=== PATIENT | female | born 1975 | race Caucasian/White ===

== ENCOUNTER 2016-12-08 13:38 | Emergency (ER) | payer BC ==
[2016-12-08] MEDS ORDERED: Ketorolac 60 MG/2 ML SDV IM ONE (16:51)
--- NOTE | 2016-12-08 16:58 | EDM.PDOC ---
ED HPI GENERAL MEDICAL PROBLEM - General Chief Complaint: Upper Extremity Injury/Pain Stated Complaint: PAIN RT ARM/SHOULDER Time Seen by Provider: 12/08/16 16:52 Source of Information: Reports: Patient History Limitations: Reports: No Limitations - History of Present Illness INITIAL COMMENTS - FREE TEXT/NARRATIVE: HISTORY AND PHYSICAL: History of present illness: joanne is a 41-year-old female who presents to the emergency room today with complaints of right shoulder pain. States that this pain came on suddenly approximately 3 months ago while she was living in [place]. States she had no injury or fall to the area. Was seen by a traffic line painter at that time and had received bupivacaine injections into her neck and shoulder with moderate relief.Since moving up to [place] she has been seeing Dr. Dang. He has put her on Dilaudid every 4 hours. states she has tried gabapentin in the past which caused her to "feel drunk" and did not alleviate any of her pain. She discontinued this medication. She has an appointment with the neurologist in [place] on January 01, 2017. patient reports she has a history of yudi and Dr. Estes would not see her due to her complicated case, therfore has a appointment with pain management in [place] on December. Reports that she tried to call and email Dr. Dang to get an expedited an appointment, and was unsuccessful. She states that she utilizes she cannot get any additional narcotics as she is already on Dilaudid. Review of systems: As per history of present illness and below otherwise all systems reviewed and negative. Past medical history: As per history of present illness and as reviewed below otherwise noncontributory. Surgical history: As per history of present illness and as reviewed below otherwise noncontributory. Social history: No reported history of drug or alcohol abuse. Family history: As per history of present illness and as reviewed below otherwise noncontributory. Physical exam: HEENT: Atraumatic, normocephalic, pupils reactive, negative for conjunctival pallor or scleral icterus, mucous membranes moist, throat clear, neck supple, nontender, trachea midline. Lungs: Clear to auscultation, breath sounds equal bilaterally, chest nontender. Heart: S1S2, regular, negative for clicks, rubs, or JVD. Abdomen: Soft, nondistended, nontender. Negative for masses or hepatosplenomegaly. Negative for costovertebral tenderness. Pelvis: Stable nontender. Genitourinary: Deferred. Rectal: Deferred. Extremities: Atraumatic, negative for cords or calf pain. Neurovascular unremarkable. Tender to palpation to the left posterior scapula into the tricep area. skin: Patient does have a port to the right subclavian area. Skin is intact with no sign of infection. Reports that she had this flushed one month ago without any complications. She usually receives monthly treatment for her proferia. Neuro: Awake, alert, oriented. Cranial nerves II through XII unremarkable. Cerebellum unremarkable. Motor and sensory unremarkable throughout. Exam nonfocal. An expedited appointment was made for patient to see Dr. Dang at [facility]. Rohini Stark ensured the ED provider that patient will be seen by a provider in the clinic tomorrow, for further pain management. Patient voices understanding and is agreeable to plan of care. Reports that she had some relief with the IM Toradol and is willing to receive a prescription for Cataflam. Follow-up tomorrow with Diagnostics: One view chest x-ray to ensure port placement Therapeutics: Toradol Impression: Shoulder Pain Plan: 1. Please call [facility] tomorrow morning as we have discussed with rohini Kay that you will be seen tomorrow by a provider, preferably Dr. Dang, to further manage her pain. Continue to take your medications as prescribed. 2. Return to the ED as needed as discussed Definitive disposition and diagnosis as appropriate pending reevaluation and review of above. Duration: Chronic Location: Reports: Upper Extremity, Right Severity: Moderate Worsens with: Reports: Other (Touch) Right Shoulder/Arm Pain Score (Numeric/FACES): 10 - Related Data Allergies Allergy/AdvReac Type Severity Reaction Status Date / Time amoxicillin [Amoxicillin] Allergy unknown Verified 12/08/16 15:03 cephalexin [Cephalexin] Allergy unknown Verified 12/08/16 15:03 cephaloridine [Cephaloridine] Allergy unknown Verified 12/08/16 15:03 Cephalosporins Allergy unknown Verified 12/08/16 15:03 diphenhydramine HCl Allergy unknown Verified 12/08/16 15:03 [From Benadryl] erythromycin base Allergy unknown Verified 12/08/16 15:03 [Erythromycin Base] latex Allergy Hives Verified 12/08/16 15:03 levofloxacin [From Levaquin] Allergy unknown Verified 12/08/16 15:03 Macrolide Antibiotics Allergy unknown Verified 12/08/16 15:03 Penicillins Allergy unknown Verified 12/08/16 15:03 Sulfa (Sulfonamide Allergy unknown Verified 12/08/16 15:03 Antibiotics) Home Meds: Home Meds HYDROmorphone [Dilaudid] 4 mg PO Q4H PRN 07/14/13 [History] Ondansetron [Zofran] 8 mg PO Q8H PRN 07/14/13 [History] Methocarbamol [Robaxin] 500 mg PO Q6H 12/08/16 [History] Sertraline HCl [Zoloft] 100 mg PO DAILY 12/08/16 [History] Past Medical History Musculoskeletal History: Reports: Neck Pain, Chronic Neurological History: Reports: Other (See Below) Other Neuro History: Fibromyalgia and pain syndrome Psychiatric History: Reports: Anxiety Hematologic History: Reports: Blood Transfusion(s), Other (See Below) 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 ED EXAM, GENERAL - Physical Exam Exam: See Below (See dictation) Course - Vital Signs Last Recorded V/S: Last Vital Signs Temp 36.7 C 12/08/16 15:07 Pulse 76 12/08/16 15:07 Resp 18 12/08/16 15:07 BP 107/64 12/08/16 15:07 Pulse Ox 98 12/08/16 15:07 - Orders/Labs/Meds Orders: Active Orders 24 hr Category Date Time Status Chest 1V Frontal [CR] Stat Exams 12/08/16 16:52 Taken Meds: Medications Discontinued Medications Generic Name Dose Route Start Last Admin Trade Name Freq PRN Reason Stop Dose Admin Ketorolac Tromethamine 60 mg 12/08/16 16:51 12/08/16 17:16 Toradol IM 12/08/16 16:52 60 mg ONETIME ONE Administration Departure - Departure Time of Disposition: 18:22 Disposition: Home, Self-Care 01 Clinical Impression: Shoulder pain, right Qualifiers: Chronicity: chronic Qualified Code(s): M25.511 - Pain in right shoulder - Discharge Information Referrals: Diego Dang MD [Primary Care Provider] - Forms: ED Department Discharge Additional Instructions: My general discharge The following information is given to patients seen in the emergency department who are being discharged to home. This information is to outline your options for follow-up care. We provide all patients seen in our emergency department with a follow-up referral. The need for follow-up, as well as the timing and circumstances, are variable depending upon the specifics of your emergency department visit. If you don't have a primary care physician on staff, we will provide you with a referral. We always advise you to contact your personal physician following an emergency department visit to inform them of the circumstance of the visit and for follow-up with them and/or the need for any referrals to a consulting specialist. The emergency department will also refer you to a specialist when appropriate. This referral assures that you have the opportunity for follow-up care with a specialist. All of these measure are taken in an effort to provide you with optimal care, which includes your follow-up. Under all circumstances we always encourage you to contact your private physician who remains a resource for coordinating your care. When calling for follow-up care, please make the office aware that this follow-up is from your recent emergency room visit. If for any reason you are refused follow-up, please contact the [facility] Emergency Department at and asked to speak to the emergency department charge nurse. [address] [address] 1. Please call [facility] tomorrow morning as we have discussed with Rohini Kay that you will be seen tomorrow by a provider, preferably Dr. Dang, to further manage her pain. Continue to take your medications as prescribed. 2. Return to the ED as needed as discussed - My Orders Last 24 Hours: My Active Orders 12/08/16 16:52 Chest 1V Frontal [CR] Stat - Assessment/Plan Last 24 Hours: My Active Orders 12/08/16 16:52 Chest 1V Viviana [CR] Stat
[2016-12-08 19:16] VITALS: BP 102/59
--- NOTE | 2016-12-09 10:39 | CR ---
EXAM DATE: 12/08/16 PATIENT'S AGE: 41 Patient: JESSIE NOLAN Facility: [place], [place] Site . Site : 1975 Study: XRay Chest [id number]/10/2017 5:32:36 PM Ordering Physician: Doctor Perez Final Report: INDICATION: Right shoulder pain TECHNIQUE: Chest 1 view. COMPARISON: 01/18/2014 FINDINGS: Cardiovascular and mediastinum: Heart size and vasculature are normal in caliber and appearance. Right-sided [id number] tip terminates in the proximal SVC. Mediastinum is within normal limits. Lungs and pleural space: Lungs are clear. No sign of infiltrate or mass. No sign of pleural effusion. No pneumothorax. Bones and soft tissues: No significant findings. IMPRESSION: Unremarkable chest. Dictated by Jorden Garrison MD @ 12/08/2016 5:59:33 PM Dictated by: Jorden Garrison MD @ 12/08/2016 17:59:42 (Electronic Signature) Report Signed by Proxy. ROSELINE
== END 2016-12-08 18:59 | disposition home or self-care (01) ==
LOC: MW.ED 13:38
DX: M25.511 Pain in right shoulder (principal); F41.9 Anxiety disorder, unspecified; Z79.899 Other long term (current) drug therapy; Z88.0 Allergy status to penicillin; Z88.1 Allergy status to other antibiotic agents; Z88.2 Allergy status to sulfonamides; Z88.8 Allergy status to other drugs, medicaments and biological substances; Z91.040 Latex allergy status
CPT/HCPCS: 71010; 96372; 99283; J1885

== ENCOUNTER 2017-04-11 15:05 | Emergency (ER) | payer BC ==
[2017-04-11] MEDS ORDERED: Sodium Chloride 0.9% 2.5 ML Syringe FLUSH PRN (17:04)
[2017-04-11] MEDS ORDERED: Sodium Chloride 0.9% 10 ML Syringe FLUSH PRN (17:04)
[2017-04-11] MEDS ORDERED: Ketorolac 30 MG/ML SDV IVPUSH ONE (17:06)
[2017-04-11 17:45] LABS: CHLORIDE,CL 109 mmol/L (98-110); SODIUM,NA 138 mmol/L (136-146)
[2017-04-11] MEDS ORDERED: Iopamidol 755 MG/ML 200 ML Multipack Bottle IVPUSH ONE (18:17)
--- NOTE | 2017-04-11 18:36 | EDM.PDOC ---
ED HPI GENERAL MEDICAL PROBLEM - General Chief Complaint: General Stated Complaint: NECK HURTS Time Seen by Provider: 04/11/17 15:48 Source of Information: Reports: Patient History Limitations: Reports: No Limitations - History of Present Illness INITIAL COMMENTS - FREE TEXT/NARRATIVE: History of present illness: []Patient states she's had 2 days of right jaw and neck pain that is sharp and severe, worsened when she opens her mouth.. She denies any fevers, chills, swelling, vocal changes or difficulty swallowing or breathing. 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 Review of systems: As per history of present illness and below otherwise all systems reviewed and negative. Past medical history: As per history of present illness and as reviewed below otherwise noncontributory. Surgical history: As per history of present illness and as reviewed below otherwise noncontributory. Social history: No reported history of drug or alcohol abuse. Family history: As per history of present illness and as reviewed below otherwise noncontributory. Physical exam: General: Well developed, well nourished in NAD HEENT: Atraumatic, normocephalic, pupils reactive, negative for conjunctival pallor or scleral icterus, mucous membranes moist, throat clear, neck supple, nontender, trachea midline. No jaw swelling noted dental caries or gingival erythema or drainage, no adenopathy or stridor. Lungs: Clear to auscultation, breath sounds equal bilaterally, chest nontender. Heart: S1S2, regular, negative for clicks, rubs, or JVD. Distal pulses are equal bilaterally Abdomen: Soft, nondistended, nontender. Negative for masses or hepatosplenomegaly. Negative for costovertebral tenderness. Pelvis: Stable nontender. Genitourinary: Deferred. Rectal: Deferred. Extremities: Atraumatic, negative for cords or calf pain. Neurovascular unremarkable. Neuro: Awake, alert, oriented. Cranial nerves II through XII unremarkable. Cerebellum unremarkable. Motor and sensory unremarkable throughout. Exam nonfocal. Diagnostics: []CT face and neck shows no abscess or deformities of the mandible. Therapeutics: []Toradol. CT neck and jaw shows Impression: []Right jaw and neck pain Plan: []Motrin or Tylenol for pain, Ice packs and/or heat to area of tenderness all up with primary care Definitive disposition and diagnosis as appropriate pending reevaluation and review of above. Right Lower Face Pain Score (Numeric/FACES): 7 - Related Data Allergies Allergy/AdvReac Type Severity Reaction Status Date / Time amoxicillin [Amoxicillin] Allergy unknown Verified 12/08/16 15:03 cephalexin [Cephalexin] Allergy unknown Verified 12/08/16 15:03 cephaloridine [Cephaloridine] Allergy unknown Verified 12/08/16 15:03 Cephalosporins Allergy unknown Verified 12/08/16 15:03 diphenhydramine HCl Allergy unknown Verified 12/08/16 15:03 [From Benadryl] erythromycin base Allergy unknown Verified 12/08/16 15:03 [Erythromycin Base] latex Allergy Hives Verified 12/08/16 15:03 levofloxacin [From Levaquin] Allergy unknown Verified 12/08/16 15:03 Macrolide Antibiotics Allergy unknown Verified 12/08/16 15:03 Penicillins Allergy unknown Verified 12/08/16 15:03 Sulfa (Sulfonamide Allergy unknown Verified 12/08/16 15:03 Antibiotics) Home Meds: Home Meds HYDROmorphone [Dilaudid] 2 mg PO Q4H PRN 07/14/13 [History] Ondansetron [Zofran] 4 mg PO Q8H PRN 07/14/13 [History] Methocarbamol [Robaxin] 500 mg PO Q6H 12/08/16 [History] Diclofenac Sodium [Voltaren] 50 mg PO ASDIRECTED PRN 04/11/17 [History] LORazepam [Ativan] 0.5 mg PO BID 04/11/17 [History] Past Medical History Musculoskeletal History: Reports: Back Pain, Chronic, Neck Pain, Chronic, Osteoarthritis, Other (See Below) Other Musculoskeletal History: degenerative disk disease Neurological History: Reports: Other (See Below) Other Neuro History: Fibromyalgia and pain syndrome Psychiatric History: Reports: Anxiety Hematologic History: Reports: Blood Transfusion(s), Other (See Below) 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 - Infectious Disease History Infectious Disease History: Reports: Chicken Pox Social & Family History - Family History Family Medical History: Noncontributory - Tobacco Use Smoking Status *Q: Never Smoker Second Hand Smoke Exposure: No - Alcohol Use Days Per Week of Alcohol Use: 0 - Recreational Drug Use Recreational Drug Use: No ED ROS GENERAL - Review of Systems Review Of Systems: See Below (See history of present illness) ED EXAM, GENERAL - Physical Exam Exam: See Below (See history of present illness) Course - Vital Signs Last Recorded V/S: Last Vital Signs Temp 99.4 F 04/11/17 15:58 Pulse 78 04/11/17 15:58 Resp 16 04/11/17 15:58 BP 125/68 04/11/17 15:58 Pulse Ox 96 04/11/17 15:58 - Orders/Labs/Meds Orders: Active Orders 24 hr Category Date Time Status Max Facial Sinus w Cont [CT] Stat Exams 04/11/17 17:03 Taken Soft Tissue Neck w Cont [CT] Stat Exams 04/11/17 17:03 Taken Sodium Chloride 0.9% [Saline Flush] Med 04/11/17 17:04 Active 10 ml FLUSH ASDIRECTED PRN Sodium Chloride 0.9% [Saline Flush] Med 04/11/17 17:04 Active 2.5 ml FLUSH ASDIRECTED PRN Saline Lock Insert [OM.PC] Stat Oth 04/11/17 17:04 Ordered Medication Orders Sodium Chloride (Saline Flush) 10 ml FLUSH ASDIRECTED PRN PRN Reason: Keep Vein Open Last Admin: 04/11/17 17:46 Dose: 10 ml Sodium Chloride (Saline Flush) 2.5 ml FLUSH ASDIRECTED PRN PRN Reason: Keep Vein Open Last Admin: 04/11/17 17:46 Dose: 2.5 ml Labs: Laboratory Tests 04/11/17 04/11/17 Range/Units 17:15 17:15 WBC 6.25 (4.0-11.0) K/uL RBC 4.73 (4.30-5.90) M/uL Hgb 13.7 (12.0-16.0) g/dL Hct 40.0 (36.0-46.0) % MCV 84.6 (80.0-98.0) fL MCH 29.0 (27.0-32.0) pg MCHC 34.3 (31.0-37.0) g/dL RDW Std Deviation 37.8 (28.0-62.0) fl RDW Coeff of Shila 12 (11.0-15.0) % Plt Count 245 (150-400) K/uL MPV 9.00 (7.40-12.00) fL Neut % (Auto) 50.9 (48.0-80.0) % Lymph % (Auto) 40.3 H (16.0-40.0) % [place] % (Auto) 6.4 (0.0-15.0) % Eos % (Auto) 1.9 (0.0-7.0) % Baso % (Auto) 0.5 (0.0-1.5) % Neut # (Auto) 3.2 (1.4-5.7) K/uL Lymph # (Auto) 2.5 H (0.6-2.4) K/uL [place] # (Auto) 0.4 (0.0-0.8) K/uL Eos # (Auto) 0.1 (0.0-0.7) K/uL Baso # (Auto) 0.0 (0.0-0.1) K/uL Nucleated RBC % 0.0 /100WBC Nucleated RBCs # 0 K/uL Sodium 138 (136-146) mmol/L Potassium 4.2 (3.5-5.1) mmol/L Chloride 109 (98-110) mmol/L Carbon Dioxide 22 (21-31) mmol/L BUN 15 (6.0-23.0) mg/dL Creatinine 0.8 (0.6-1.5) mg/dL Est Cr Clr Drug Dosing 77.33 mL/min Estimated GFR (MDRD) > 60.0 ml/min Glucose 81 (60-110) mg/dL Calcium 9.8 (8.8-10.8) mg/dL Meds: Medications Generic Name Dose Route Start Last Admin Trade Name Freq PRN Reason Stop Dose Admin Sodium Chloride 10 ml 04/11/17 17:04 04/11/17 17:46 Saline Flush FLUSH 10 ml ASDIRECTED PRN Administration Keep Vein Open Sodium Chloride 2.5 ml 04/11/17 17:04 04/11/17 17:46 Saline Flush FLUSH 2.5 ml ASDIRECTED PRN Administration Keep Vein Open Discontinued Medications Generic Name Dose Route Start Last Admin Trade Name Freq PRN Reason Stop Dose Admin Iopamidol 200 ml 04/11/17 18:17 04/11/17 18:17 Isovue Multipack-370 (76%) IVPUSH 04/11/17 18:18 75 ml ONETIME ONE Administration Ketorolac Tromethamine 30 mg 04/11/17 17:06 04/11/17 17:46 Toradol IVPUSH 04/11/17 17:07 30 mg ONETIME ONE Administration Departure - Departure Time of Disposition: 18:48 Disposition: Home, Self-Care 01 Condition: Good Clinical Impression: Jaw pain - Discharge Information Referrals: Diego Dang MD [Primary Care Provider] - Forms: ED Department Discharge Additional Instructions: The following information is given to patients seen in the emergency department who are being discharged to home. This information is to outline your options for follow-up care. We provide all patients seen in our emergency department with a follow-up referral. The need for follow-up, as well as the timing and circumstances, are variable depending upon the specifics of your emergency department visit. If you don't have a primary care physician on staff, we will provide you with a referral. We always advise you to contact your personal physician following an emergency department visit to inform them of the circumstance of the visit and for follow-up with them and/or the need for any referrals to a consulting specialist. The emergency department will also refer you to a specialist when appropriate. This referral assures that you have the opportunity for follow-up care with a specialist. All of these measure are taken in an effort to provide you with optimal care, which includes your follow-up. Under all circumstances we always encourage you to contact your private physician who remains a resource for coordinating your care. When calling for follow-up care, please make the office aware that this follow-up is from your recent emergency room visit. If for any reason you are refused follow-up, please contact the [facility] Emergency Department at and asked to speak to the emergency department charge nurse. Tylenol, Motrin, ice packs to jaw PMD. [facility] [address] [place] [id number] - My Orders Last 24 Hours: My Active Orders 04/11/17 17:03 Max Facial Sinus w Cont [CT] Stat Soft Tissue Neck w Cont [CT] Stat 04/11/17 17:04 Sodium Chloride 0.9% [Saline Flush] 10 ml FLUSH ASDIRECTED PRN Sodium Chloride 0.9% [Saline Flush] 2.5 ml FLUSH ASDIRECTED PRN Saline Lock Insert [OM.PC] Stat - Assessment/Plan Last 24 Hours: My Active Orders 04/11/17 17:03 Max Facial Sinus w Cont [CT] Stat Soft Tissue Neck w Cont [CT] Stat 04/11/17 17:04 Sodium Chloride 0.9% [Saline Flush] 10 ml FLUSH ASDIRECTED PRN Sodium Chloride 0.9% [Saline Flush] 2.5 ml FLUSH ASDIRECTED PRN Saline Lock Insert [OM.PC] Stat
[2017-04-11 18:58] VITALS: BP 106/65
--- NOTE | 2017-04-12 15:00 | CT ---
EXAM DATE: 04/11/17 PATIENT'S AGE: 41 Patient: JESSIE NOLAN Facility: [place], [place] Site . Site : 1975 Study: CT Facial [id number]/11/2018 6:23:54 PM Ordering Physician: Jordy Arango Final Report: INDICATION: Right-sided jaw and neck pain for 2 days TECHNIQUE: CT maxillofacial with 70 cc Isovue 370 IV contrast. COMPARISON: None FINDINGS: Facial bones: No fractures or bone lesions. Specifically the nasal bones, temporomandibular joints, maxilla and mandible appear intact. Orbits and globes: Unremarkable. Sinuses: No acute or significant findings. Soft tissues: Unremarkable. No soft tissue abscess or mass. IMPRESSION: No sign of acute abnormality. Please note that all CT scans at this facility use dose modulation, iterative reconstruction, and/or weight-based dosing when appropriate to reduce radiation dose to as low as reasonably achievable. Dictated by Ksenia King MD @ Apr 11 2017 6:30PM (Electronic Signature) Report Signed by Proxy. [facility] HOSPITALAzael
--- NOTE | 2017-04-12 15:01 | CT ---
EXAM DATE: 04/11/17 PATIENT'S AGE: 41 Patient: JESSIE NOLAN Facility: [place], [place] Site . Site : 1975 Study: CT ST Neck [id number]/11/2018 6:24:34 PM Ordering Physician: Jordy Arango Final Report: INDICATION: Right-sided jaw, neck pain. TECHNIQUE: Standard contrast-enhanced CT neck soft tissue protocol performed. FINDINGS: The soft tissues of the neck are within normal limits. The airway is widely patent. The muscles and fascial planes are intact. No lymphadenopathy is noted. The carotid and vertebral arteries have a normal course and caliber. The visualized orbits, sinuses and mastoids are unremarkable. The visualized brain is within normal limits. The cervical spine is in normal alignment. The lung apices are clear. IMPRESSION: Normal neck CT with contrast. Please note that all CT scans at this facility use dose modulation, iterative reconstruction, and/or weight-based dosing when appropriate to reduce radiation dose to as low as reasonably achievable. Dictated by Doc Lakhani MD @ Apr 12 2017 12:40AM (Electronic Signature) Report Signed by Proxy. [facility] SYSTEMAzael
== END 2017-04-11 18:54 | disposition home or self-care (01) ==
LOC: MW.ED 15:05
DX: R68.84 Jaw pain (principal); M54.2 Cervicalgia; F41.9 Anxiety disorder, unspecified; Z88.1 Allergy status to other antibiotic agents; Z88.0 Allergy status to penicillin; Z88.2 Allergy status to sulfonamides; Z88.8 Allergy status to other drugs, medicaments and biological substances; Z79.899 Other long term (current) drug therapy
CPT/HCPCS: 36415; 70487; 70491; 80048; 85025; 96374; 99284; J1885; Q9967

== ENCOUNTER 2017-06-03 02:20 | Observation (INO) | payer BC, MEDICARE ==
[2017-06-03] MEDS ORDERED: Sodium Chloride 0.9% 10 ML Syringe FLUSH PRN (02:57)
[2017-06-03] MEDS ORDERED: Sodium Chloride 0.9% 2.5 ML Syringe FLUSH PRN (02:57)
[2017-06-03] MEDS ORDERED: Ondansetron 4 MG/2 ML SDV IVPUSH ONE (02:58)
[2017-06-03] MEDS ORDERED: Sodium Chloride 0.9% 1,000 ML IV ONE (02:58)
[2017-06-03] MEDS ORDERED: HYDROmorphone 2 MG/ML SDV IVPUSH ONE (02:58)
--- NOTE | 2017-06-03 03:10 | EDM.PDOC ---
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 Mireles in our oncology clinic. According to the patient the last year she has been doing much better and has not had frequent attacks that she needs to come to the ER and she is able to intercept at home with hydration, carbohydrate loading Zofran and oral Dilaudid. The patient did have a flare up just recently and was seen in our oncology clinic on May 20 and received IV hemin 350 milligrams and she says that after this she felt good for at least 3-4 days. She has received IV hemin multiple times when she was living in [place] and the patient has documentation in a large open book at bedside. Her dose at that time was 313 mg. The patient says her need for hospitalization and ER visits has significantly reduced over the last one year and she is not sure why to flare up so soon after the last IV infusion. The patient is currently on her period which will sometimes exacerbate her flareups in her typical flareups is what she is experiencing now which is upper right neck and back pain posterior arm pain extending down to the flank area which is a burning-like sensation. She has constant nausea but he gets worse during her flareups she has not had any vomiting or diarrhea. She denies and has a history of tubal ligation and has no urinary complaints. She's not had a fever or upper respiratory symptoms. She says that she tried to contact the oncology clinic today at 3:30 but nobody returned her call and she also tried to contact Dr. Dang her provider at [facility] and they also did not return her phone call. She's coming here because the pain is unrelenting and she feels that she has an acute flare up requiring more intervention than she can do at home. The patient states that the pain she is experiencing is a deep burning-like sensation and it is classic for her flareups. The patient states that as a result of her multiple flareups in the past she has had lots of nerve damage and also has significant lumbar and cervical spine disease including disc bulging for which she does not feel that the pain is new or different this evening ;she has no new focal neurologic deficits weakness or tingling. Please note that the patient comes with a very large notebook of paperwork including almost every doctor's note from her old outdoor advertising leasing agent, ER visits, care plans and medication list. She also has with her the paperwork documenting her dosing of the hemin done in our oncology clinic on May 20. Patient tells me that when she felt this flareup worsening this evening she tried to carbohydrate load eating pizza as well as taking her home medication Review of systems: As per history of present illness and below otherwise all systems reviewed and negative. Past medical history: As per history of present illness and as reviewed below otherwise noncontributory. Surgical history: As per history of present illness and as reviewed below otherwise noncontributory. Social history: No reported history of drug or alcohol abuse. Family history: As per history of present illness and as reviewed below otherwise noncontributory. Physical exam: General: Well-developed well-nourished female who is nontoxic but looks uncomfortable in the room and vital signs are noted by me HEENT: Atraumatic, normocephalic, pupils reactive, negative for conjunctival pallor or scleral icterus, mucous membranes moist, throat clear, neck supple, nontender, trachea midline. Lungs: Clear to auscultation, breath sounds equal bilaterally, chest nontender. Heart: S1S2, regular, negative for clicks, rubs, or JVD. Abdomen: Soft, nondistended, nontender. Negative for masses or hepatosplenomegaly. Negative for costovertebral tenderness. Pelvis: Stable nontender. Genitourinary: Deferred. Rectal: Deferred. Extremities: Atraumatic, negative for cords or calf pain. Neurovascular unremarkable. Range of motion without defects or deficits Neuro: Awake, alert, oriented. Cranial nerves II through XII unremarkable. Cerebellum unremarkable. Motor and sensory unremarkable throughout. Exam nonfocal. Skin: Normal turgor no evidence of any rashes or lesions are appreciated Diagnostics: CBC CMP magnesium level I contacted the lab to see if they could do a urine porphobilinogen, which is the diagnostic test for a flare up of porphyria, but they tell me it is a send out. Therapeutics: Port access, IV fluids, Zofran, Dilaudid, hemin. I have discussed with the patient having Dr. Mireles compile a protocol for her to be left in the ED book of patients that we keep for those individuals that have rare disorders that require specific treatment. I told her that it would be helpful for all of our providers to have the ability to reference this information and to institute a care plan that both he approves of as well as works for this patient. She said that she has asked him to do that on her last visit and she will again approach him when she sees him again for a follow-up. I will also refer her to our clinics to get a primary care for rider who may also be able to assist with this. [id number]: Case was discussed with hematology on-call at [facility] for Dr. Mireles, Dr. Brown, and he tells me that there is no reason why I cannot give the IV hemin and recommends that I do and that I need to change her fluids to a dextrose containing solution after her bolus and she will need to be admitted for observation for continued hydration with a dextrose solution into her pain is resolved. [id number]: According to our pharmacist we cannot get the hemin as we have to pre- order this and we do not keep it in stock. In order for this patient to receive the drug we will have to order it sometime later this morning and it will not arrive here until Wednesday. I discussed this information with Dr. Brown and have specifically asked him if he thinks that the patient needs emergent transfer to get this medication this evening and he says no and that the patient can be observed here with a trial of hydration pain management and reevaluation. He said that sometimes that they will improve with just this alone and that if she needs the medication she would then need to be transferred. Every discussed this case with Dr. Dominguez who was aware of this patient when she arrived. He is agreeable to observation admission with IV hydration and symptomatic management and reevaluation for either receiving the medication later today and/or transfer. Patient has been made aware of all of these conversations. The patient also tells me that she has done this in the past as well. Both Dr. Dominguez and the patient will discuss possibly ordering this medication and giving it on an outpatient basis on Wednesday if we can get her pain control and hydration status improved during this observation. Critical care time excluding procedures:31min Impression: Acute intermittent porphyria with current flareup Definitive disposition and diagnosis as appropriate pending reevaluation and review of above. Right Pain Score (Numeric/FACES): 7 - Related Data Allergies Allergy/AdvReac Type Severity Reaction Status Date / Time amoxicillin [Amoxicillin] Allergy unknown Verified 12/08/16 15:03 cephalexin [Cephalexin] Allergy unknown Verified 12/08/16 15:03 cephaloridine [Cephaloridine] Allergy unknown Verified 12/08/16 15:03 Cephalosporins Allergy unknown Verified 12/08/16 15:03 diphenhydramine HCl Allergy unknown Verified 12/08/16 15:03 [From Benadryl] erythromycin base Allergy unknown Verified 12/08/16 15:03 [Erythromycin Base] latex Allergy Hives Verified 12/08/16 15:03 levofloxacin [From Levaquin] Allergy unknown Verified 12/08/16 15:03 Macrolide Antibiotics Allergy unknown Verified 12/08/16 15:03 Penicillins Allergy unknown Verified 12/08/16 15:03 Sulfa (Sulfonamide Allergy unknown Verified 12/08/16 15:03 Antibiotics) Home Meds: Home Meds HYDROmorphone [Dilaudid] 2 mg PO Q4H PRN 07/14/13 [History] Ondansetron [Zofran] 4 mg PO Q8H PRN 07/14/13 [History] Methocarbamol [Robaxin] 500 mg PO Q6H 12/08/16 [History] Diclofenac Sodium [Voltaren] 50 mg PO ASDIRECTED PRN 04/11/17 [History] LORazepam [Ativan] 0.5 mg PO BID 04/11/17 [History] Past Medical History Cardiovascular History: Reports: Other (See Below) Other Cardiovascular History: POTS Musculoskeletal History: Reports: Back Pain, Chronic, Neck Pain, Chronic, Osteoarthritis, Other (See Below) Other Musculoskeletal History: degenerative disk disease Neurological History: Reports: Other (See Below) Other Neuro History: Fibromyalgia and pain syndrome Psychiatric History: Reports: Anxiety Hematologic History: Reports: Blood Transfusion(s), Other (See Below) 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 ED EXAM, GENERAL - Physical Exam Exam: See Below (See dictation) Course - Vital Signs Last Recorded V/S: Last Vital Signs Temp 36.9 C 06/03/17 02:36 Pulse 96 06/03/17 02:36 Resp 18 06/03/17 02:36 BP 140/77 06/03/17 02:36 Pulse Ox 97 06/03/17 02:36 - Orders/Labs/Meds Orders: Active Orders 24 hr Category Date Time Status Patient Status [ADT] Stat ADT 06/03/17 03:53 Active Implanted Port Access [RC] DAILY Care 06/03/17 02:58 Active Dextrose 5%-0.45% NaCl [Dextrose 5%-1/2 NS] 1,000 ml Med 06/03/17 03:45 Active IV ASDIRECTED Medication Orders Dextrose/Sodium Chloride (Dextrose 5%-1/2 Ns) 1,000 mls @ 125 mls/hr IV ASDIRECTED ISMAEL Labs: Laboratory Tests 06/03/17 06/03/17 06/03/17 Range/Units 03:30 03:30 03:30 WBC 6.79 (4.0-11.0) K/uL RBC 4.36 (4.30-5.90) M/uL Hgb 12.6 (12.0-16.0) g/dL Hct 36.3 (36.0-46.0) % MCV 83.3 (80.0-98.0) fL MCH 28.9 (27.0-32.0) pg MCHC 34.7 (31.0-37.0) g/dL RDW Std Deviation 36.6 (28.0-62.0) fl RDW Coeff of Shila 12 (11.0-15.0) % Plt Count 229 (150-400) K/uL MPV 8.90 (7.40-12.00) fL Neut % (Auto) 45.5 L (48.0-80.0) % Lymph % (Auto) 42.6 H (16.0-40.0) % Hudson % (Auto) 8.4 (0.0-15.0) % Eos % (Auto) 3.1 (0.0-7.0) % Baso % (Auto) 0.4 (0.0-1.5) % Neut # (Auto) 3.1 (1.4-5.7) K/uL Lymph # (Auto) 2.9 H (0.6-2.4) K/uL Hudson # (Auto) 0.6 (0.0-0.8) K/uL Eos # (Auto) 0.2 (0.0-0.7) K/uL Baso # (Auto) 0.0 (0.0-0.1) K/uL Nucleated RBC % 0.0 /100WBC Nucleated RBCs # 0 K/uL INR 0.98 Sodium 142 (136-145) mmol/L Potassium 3.5 (3.5-5.1) mmol/L Chloride 107 (98-107) mmol/L Carbon Dioxide 26.9 (21.0-32.0) mmol/L BUN 20 H (7.0-18.0) mg/dL Creatinine 0.9 (0.6-1.0) mg/dL Est Cr Clr Drug Dosing 68.73 mL/min Estimated GFR (MDRD) > 60.0 ml/min Glucose 86 (74-106) mg/dL Calcium 9.4 (8.5-10.1) mg/dL Magnesium 1.9 (1.5-2.0) mg/dL Total Bilirubin 0.2 (0.2-1.0) mg/dL AST 24 (15-37) IU/L ALT 27 (14-63) IU/L Alkaline Phosphatase 43 L (46-116) U/L Total Protein 6.3 L (6.4-8.2) g/dL Albumin 3.4 (3.4-5.0) g/dL Globulin 2.9 (2.0-3.5) g/dL Albumin/Globulin Ratio 1.2 L (1.3-2.8) Meds: Medications Generic Name Dose Route Start Last Admin Trade Name Freq PRN Reason Stop Dose Admin Dextrose/Sodium Chloride 1,000 mls @ 125 mls/hr 06/03/17 03:45 Dextrose 5%-1/2 Ns IV ASDIRECTED ISMAEL Discontinued Medications Generic Name Dose Route Start Last Admin Trade Name Wilbertoq PRN Reason Stop Dose Admin Hemin 313 mg 06/03/17 03:31 Panhematin IV 06/03/17 03:32 ONETIME ONE Hydromorphone HCl 1 mg 06/03/17 02:58 06/03/17 03:24 Dilaudid IVPUSH 06/03/17 02:59 1 mg ONETIME ONE Administration Sodium Chloride 1,000 mls @ 999 mls/hr 06/03/17 02:58 06/03/17 03:25 Normal Saline IV 06/03/17 03:58 999 mls/hr STAT ONE Administration Ondansetron HCl 4 mg 06/03/17 02:58 06/03/17 03:24 Zofran IVPUSH 06/03/17 02:59 4 mg ONETIME ONE Administration Sodium Chloride 10 ml 06/03/17 02:57 Saline Flush FLUSH ASDIRECTED PRN Keep Vein Open Sodium Chloride 2.5 ml 06/03/17 02:57 Saline Flush FLUSH ASDIRECTED PRN Keep Vein Open Departure - Departure Time of Disposition: 04:20 Disposition: Refer to Observation Condition: Good Clinical Impression: Acute intermittent porphyria - Discharge Information Referrals: Diego Dang MD [Primary Care Provider] - Forms: ED Department Discharge - My Orders Last 24 Hours: My Active Orders 06/03/17 02:58 Implanted Port Access [RC] DAILY 06/03/17 03:45 Dextrose 5%-0.45% NaCl [Dextrose 5%-1/2 NS] 1,000 ml IV ASDIRECTED 06/03/17 03:53 Patient Status [ADT] Stat - Assessment/Plan Last 24 Hours: My Active Orders 06/03/17 02:58 Implanted Port Access [RC] DAILY 06/03/17 03:45 Dextrose 5%-0.45% NaCl [Dextrose 5%-1/2 NS] 1,000 ml IV ASDIRECTED 06/03/17 03:53 Patient Status [ADT] Stat
[2017-06-03] MEDS ORDERED: HEMIN IV ONE (03:31)
[2017-06-03 04:05] LABS: CHLORIDE,CL 107 mmol/L (98-107); SODIUM,NA 142 mmol/L (136-145)
[2017-06-03] MEDS: Dextrose 5%-0.45% NaCl 1,000 ML IV SCH ×3 (04:30→20:50)
[2017-06-03] MEDS ORDERED: HYDROmorphone 2 MG/ML Syringe IVPUSH PRN (04:54)
[2017-06-03] MEDS: Ondansetron 4 MG/2 ML SDV IVPUSH PRN ×2 (06:29→10:53)
--- NOTE | 2017-06-03 07:32 | PCM.HP ---
H&P History of Present Illness - General Date of Service: 06/03/17 Admit Problem/Dx: Admission Diagnosis/Problem Admission Diagnosis/Problem Acute pain - History of Present Illness Initial Comments - Free Text/Narative: This is a 41-year-old female who has a significant medical history for acute intermittent prophyria for which she is being seen by hematology, Dr. Mireles since she moved to [place]. Patient states that she is having an acute flareup , she is having a burning sensation of her upper extremity on the right side into the back and extending all the way down to her lower extremities. It is typical in terms of how her acute flareups do occur however this is becoming significant whether she is unable to control the pain management at home. Typically she will alternate in terms of carbohydrate intake as that can control it the symptoms. However at this point in time she requires her infusion of IV Hemin. She called her primary care provider and was not able to get in touch with his office, she called the infusion center to see if she could get in touch with Dr. Mireles and again she was unable to get any response back as the pain became progressively worse the patient came into the ER for pain control management. ER treatment included IV fluids, Zofran, Dilaudid for pain management, ER learned that hemin is not on formulary and requires to be shipped. Decision was made to admit the patient for pain management and if the patient's pain was not controllable to have the patient urgently transferred off get her IV infusion immediately. Right Pain Score (Numeric/FACES): 7 - Related Data Allergies/Adverse Reactions: Allergies Allergy/AdvReac Type Severity Reaction Status Date / Time amoxicillin [Amoxicillin] Allergy unknown Verified 12/08/16 15:03 cephalexin [Cephalexin] Allergy unknown Verified 12/08/16 15:03 cephaloridine [Cephaloridine] Allergy unknown Verified 12/08/16 15:03 Cephalosporins Allergy unknown Verified 12/08/16 15:03 diphenhydramine HCl Allergy unknown Verified 12/08/16 15:03 [From Benadryl] erythromycin base Allergy unknown Verified 12/08/16 15:03 [Erythromycin Base] latex Allergy Hives Verified 12/08/16 15:03 levofloxacin [From Levaquin] Allergy unknown Verified 12/08/16 15:03 Macrolide Antibiotics Allergy unknown Verified 12/08/16 15:03 Penicillins Allergy unknown Verified 12/08/16 15:03 Sulfa (Sulfonamide Allergy unknown Verified 12/08/16 15:03 Antibiotics) Home Medications: Home Meds HYDROmorphone [Dilaudid] 2 mg PO Q4H PRN 07/14/13 [History] Ondansetron [Zofran] 4 mg PO Q8H PRN 07/14/13 [History] Methocarbamol [Robaxin] 500 mg PO Q6H 12/08/16 [History] Diclofenac Sodium [Voltaren] 50 mg PO ASDIRECTED PRN 04/11/17 [History] LORazepam [Ativan] 0.5 mg PO BID 04/11/17 [History] Past Medical History HEENT History: Reports: None Cardiovascular History: Reports: Other (See Below) Other Cardiovascular History: POTS 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: Reports: , Other (See Below) Other OB/BYN History: tubal ligation Musculoskeletal History: Reports: Back Pain, Chronic, Neck Pain, Chronic, Osteoarthritis, Other (See Below) Other Musculoskeletal History: degenerative disk disease Neurological History: Reports: Other (See Below) Other Neuro History: Fibromyalgia and pain syndrome Psychiatric History: Reports: Anxiety Endocrine/Metabolic History: Reports: Other (See Below) Other Endocrine/Metabolic History: acute intermitent porphria Hematologic History: Reports: Other (See Below) Other Hematologic History: acute intermitent porphyria - Infectious Disease History Infectious Disease History: Reports: Chicken Pox - Past Surgical History HEENT Surgical History: Reports: None Cardiovascular Surgical History: Reports: None Endocrine Surgical History: Reports: None Neurological Surgical History: Reports: None Musculoskeletal Surgical History: Reports: None Social & Family History - Family History Family Medical History: Noncontributory - Tobacco Use Smoking Status *Q: Never Smoker Second Hand Smoke Exposure: No - Caffeine Use Caffeine Use: Reports: None - Alcohol Use Days Per Week of Alcohol Use: 0 - Recreational Drug Use Recreational Drug Use: No H&P Review of Systems - Review of Systems: Review Of Systems: ROS reveals no pertinent complaints other than HPI. Exam - Exam Exam: See Below - Vital Signs Vital Signs: Last Vital Signs Temp 37.1 C 06/03/17 04:28 Pulse 82 06/03/17 04:38 Resp 12 06/03/17 04:38 BP 93/50 L 06/03/17 04:38 Pulse Ox 97 06/03/17 04:38 Weight: 66.905 kg - Exam Quality Assessment: Supplemental Oxygen General: Alert, Oriented, Cooperative, Moderate Distress Lungs: Clear to Auscultation, Normal Respiratory Effort Cardiovascular: Regular Rate, Regular Rhythm GI/Abdominal Exam: Normal Bowel Sounds Extremities: Normal Inspection, Normal Range of Motion, Non-Tender - Patient Data Lab Results Last 24 hrs: Laboratory Results - last 24 hr 06/03/17 06/03/17 06/03/17 Range/Units 03:30 03:30 03:30 WBC 6.79 (4.0-11.0) K/uL RBC 4.36 (4.30-5.90) M/uL Hgb 12.6 (12.0-16.0) g/dL Hct 36.3 (36.0-46.0) % MCV 83.3 (80.0-98.0) fL MCH 28.9 (27.0-32.0) pg MCHC 34.7 (31.0-37.0) g/dL RDW Std Deviation 36.6 (28.0-62.0) fl RDW Coeff of Shila 12 (11.0-15.0) % Plt Count 229 (150-400) K/uL MPV 8.90 (7.40-12.00) fL Neut % (Auto) 45.5 L (48.0-80.0) % Lymph % (Auto) 42.6 H (16.0-40.0) % Lucas % (Auto) 8.4 (0.0-15.0) % Eos % (Auto) 3.1 (0.0-7.0) % Baso % (Auto) 0.4 (0.0-1.5) % Neut # (Auto) 3.1 (1.4-5.7) K/uL Lymph # (Auto) 2.9 H (0.6-2.4) K/uL Lucas # (Auto) 0.6 (0.0-0.8) K/uL Eos # (Auto) 0.2 (0.0-0.7) K/uL Baso # (Auto) 0.0 (0.0-0.1) K/uL Nucleated RBC % 0.0 /100WBC Nucleated RBCs # 0 K/uL INR 0.98 Sodium 142 (136-145) mmol/L Potassium 3.5 (3.5-5.1) mmol/L Chloride 107 (98-107) mmol/L Carbon Dioxide 26.9 (21.0-32.0) mmol/L BUN 20 H (7.0-18.0) mg/dL Creatinine 0.9 (0.6-1.0) mg/dL Est Cr Clr Drug Dosing 68.73 mL/min Estimated GFR (MDRD) > 60.0 ml/min Glucose 86 (74-106) mg/dL Calcium 9.4 (8.5-10.1) mg/dL Magnesium 1.9 (1.5-2.0) mg/dL Total Bilirubin 0.2 (0.2-1.0) mg/dL AST 24 (15-37) IU/L ALT 27 (14-63) IU/L Alkaline Phosphatase 43 L (46-116) U/L Total Protein 6.3 L (6.4-8.2) g/dL Albumin 3.4 (3.4-5.0) g/dL Globulin 2.9 (2.0-3.5) g/dL Albumin/Globulin Ratio 1.2 L (1.3-2.8) Result Diagrams: 06/03/17 03:30 06/03/17 03:30 Problem List Initiated/Reviewed/Updated: Yes Orders Last 24hrs: Active Orders 24 hr Category Date Time Status Patient Status [ADT] Stat ADT 06/03/17 03:53 Active Implanted Port Access [RC] DAILY Care 06/03/17 02:58 Active Regular Diet [DIET] Diet 06/03/17 Breakfast Active Dextrose 5%-0.45% NaCl [Dextrose 5%-1/2 NS] 1,000 ml Med 06/03/17 03:45 Active IV ASDIRECTED HYDROmorphone [Dilaudid] Med 06/03/17 04:54 Active 1 mg IVPUSH Q3H PRN Ondansetron [Zofran] Med 06/03/17 04:54 Active 4 mg IVPUSH Q3H PRN Medication Orders Hydromorphone HCl (Dilaudid) 1 mg IVPUSH Q3H PRN PRN Reason: Pain Last Admin: 06/03/17 05:33 Dose: 1 mg Dextrose/Sodium Chloride (Dextrose 5%-1/2 Ns) 1,000 mls @ 125 mls/hr IV ASDIRECTED ISMAEL Last Admin: 06/03/17 04:30 Dose: 125 mls/hr Ondansetron HCl (Zofran) 4 mg IVPUSH Q3H PRN PRN Reason: Nausea/Vomiting Last Admin: 06/03/17 06:29 Dose: 4 mg Assessment/Plan Comment:: 41-year-old female being admitted for acute flareup of her acute intermittent porphyria. Patient requires IV pain management and nausea/vomiting controlled. -Patient to control patient's pain with IV Dilaudid, Zofran and Phenergan for nausea and vomiting control, IV fluids for appropriate hydration - Have spoken with Pharmacy patient shall be getting her Hemin dosage shipped to [place], Shall be getting in touch with Hematology in regards to the amount of infuses this patient is going to require for this acute flare up. - admit patient under observation disposition less then 2 midnights.
[2017-06-03] MEDS: HYDROmorphone 1 MG/ML Syringe IVPUSH PRN ×4 (08:27→20:48)
[2017-06-03] MEDS ORDERED: Promethazine 25 MG/ML SDV IM PRN (11:26)
[2017-06-03] MEDS: Enoxaparin 40 MG/0.4 ML Syringe SUBCUT SCH (14:12)
[2017-06-03] MEDS ORDERED: LORazepam 0.5 MG Tab PO PRN (21:31)
[2017-06-04] MEDS: Dextrose 5%-0.45% NaCl 1,000 ML IV SCH ×3 (04:15→23:54)
[2017-06-04] MEDS: HYDROmorphone 1 MG/ML Syringe IVPUSH PRN ×5 (04:22→23:56)
[2017-06-04 05:42] LABS: CHLORIDE,CL 108 mmol/L (98-107); SODIUM,NA 140 mmol/L (136-145)
[2017-06-04] MEDS: Ondansetron 4 MG/2 ML SDV IVPUSH PRN ×2 (11:00→14:43)
[2017-06-04] MEDS ORDERED: HEMIN IV ONE (12:47)
[2017-06-04] MEDS: Enoxaparin 40 MG/0.4 ML Syringe SUBCUT SCH (12:54)
[2017-06-04] MEDS ORDERED: HEMIN IV SCH (13:15)
--- NOTE | 2017-06-04 14:21 | PCM.PN ---
- General Info Date of Service: 06/04/17 Subjective Update: Pt stated she did not sleep well over night, still having some pain in back and arm area. Awaiting the patients Hemin so that we can start dosing. - Patient Data Vitals - Most Recent: Last Vital Signs Temp 36.9 C 06/04/17 08:00 Pulse 85 06/04/17 08:00 Resp 12 06/04/17 08:00 BP 108/60 06/04/17 08:00 Pulse Ox 97 06/04/17 08:00 Weight - Most Recent: 66.905 kg I&O - Last 24 Hours: Intake & Output 06/03/17 06/04/17 06/04/17 22:59 06:59 14:59 Intake Total 1000 1225 Output Total 1400 Balance 1000 -175 Lab Results Last 24 Hours: Laboratory Results - last 24 hr 06/04/17 06/04/17 06/04/17 Range/Units 02:17 05:05 05:05 WBC 5.04 (4.0-11.0) K/uL RBC 4.25 L (4.30-5.90) M/uL Hgb 12.1 (12.0-16.0) g/dL Hct 35.6 L (36.0-46.0) % MCV 83.8 (80.0-98.0) fL MCH 28.5 (27.0-32.0) pg MCHC 34.0 (31.0-37.0) g/dL RDW Std Deviation 37.2 (28.0-62.0) fl RDW Coeff of Shila 12 (11.0-15.0) % Plt Count 213 (150-400) K/uL MPV 9.10 (7.40-12.00) fL Neut % (Auto) 44.0 L (48.0-80.0) % Lymph % (Auto) 42.1 H (16.0-40.0) % [place] % (Auto) 8.3 (0.0-15.0) % Eos % (Auto) 5.0 (0.0-7.0) % Baso % (Auto) 0.6 (0.0-1.5) % Neut # (Auto) 2.2 (1.4-5.7) K/uL Lymph # (Auto) 2.1 (0.6-2.4) K/uL [place] # (Auto) 0.4 (0.0-0.8) K/uL Eos # (Auto) 0.3 (0.0-0.7) K/uL Baso # (Auto) 0.0 (0.0-0.1) K/uL Nucleated RBC % 0.0 /100WBC Nucleated RBCs # 0 K/uL Sodium 140 (136-145) mmol/L Potassium 3.6 (3.5-5.1) mmol/L Chloride 108 H (98-107) mmol/L Carbon Dioxide 25.4 (21.0-32.0) mmol/L BUN 9 (7.0-18.0) mg/dL Creatinine 0.9 (0.6-1.0) mg/dL Est Cr Clr Drug Dosing 68.73 mL/min Estimated GFR (MDRD) > 60.0 ml/min Glucose 101 (74-106) mg/dL Calcium 8.8 (8.5-10.1) mg/dL Total Bilirubin 0.2 (0.2-1.0) mg/dL AST 24 (15-37) IU/L ALT 24 (14-63) IU/L Alkaline Phosphatase 38 L (46-116) U/L Total Protein 5.6 L (6.4-8.2) g/dL Albumin 3.1 L (3.4-5.0) g/dL Globulin 2.5 (2.0-3.5) g/dL Albumin/Globulin Ratio 1.2 L (1.3-2.8) Urine Color YELLOW Urine Appearance CLEAR Urine pH 7.0 (5.0-8.0) Ur Specific [place] 1.010 (1.001-1.035) Urine Protein NEGATIVE (NEGATIVE) mg/dL Urine Glucose (UA) NEGATIVE (NEGATIVE) mg/dL Urine Ketones NEGATIVE (NEGATIVE) mg/dL Urine Occult Blood NEGATIVE (NEGATIVE) Urine Nitrite NEGATIVE (NEGATIVE) Urine Bilirubin NEGATIVE (NEGATIVE) Urine Urobilinogen 0.2 (<2.0) EU/dL Ur Leukocyte Esterase NEGATIVE (NEGATIVE) Urine RBC NONE SEEN (0-2/HPF) Urine WBC NONE SEEN (0-5/HPF) Ur Epithelial Cells OCCASIONAL (NONE-FEW) Urine Bacteria FEW (NEGATIVE) Med Orders - Current: Current Medications Enoxaparin Sodium (Lovenox) 40 mg SUBCUT Q24H [facility] Last Admin: 06/04/17 12:54 Dose: 40 mg Hydromorphone HCl (Dilaudid) 1 mg IVPUSH Q3H PRN PRN Reason: Pain Last Admin: 06/04/17 12:58 Dose: 1 mg Dextrose/Sodium Chloride (Dextrose 5%-1/2 Ns) 1,000 mls @ 125 mls/hr IV ASDIRECTED [facility] Last Admin: 06/04/17 12:30 Dose: 125 mls/hr Hemin 350 mg/ Premix 50 mls @ 100 mls/hr IV Q24H [facility] Stop: 06/05/17 13:44 Lorazepam (Ativan) 0.5 mg PO BEDTIME PRN PRN Reason: Anxiety Last Admin: 06/03/17 23:08 Dose: 0.5 mg Ondansetron HCl (Zofran) 4 mg IVPUSH Q3H PRN PRN Reason: Nausea/Vomiting Last Admin: 06/04/17 11:00 Dose: 4 mg Promethazine HCl (Phenergan) 25 mg IM Q6H PRN PRN Reason: Nausea/Vomiting Senna/Docusate Sodium (Senna Plus) 1 tab PO BID PRN PRN Reason: Constipation Discontinued Medications Hemin (Panhematin) 313 mg IV ONETIME ONE Stop: 06/03/17 03:32 Last Admin: 06/03/17 04:26 Dose: Not Given Hydromorphone HCl (Dilaudid) 1 mg IVPUSH ONETIME ONE Stop: 06/03/17 02:59 Last Admin: 06/03/17 03:24 Dose: 1 mg Hydromorphone HCl (Dilaudid) 1 mg IVPUSH Q3H PRN PRN Reason: Pain Last Admin: 06/03/17 05:33 Dose: 1 mg Sodium Chloride (Normal Saline) 1,000 mls @ 999 mls/hr IV STAT ONE Stop: 06/03/17 03:58 Last Admin: 06/03/17 03:25 Dose: 999 mls/hr Ondansetron HCl (Zofran) 4 mg IVPUSH ONETIME ONE Stop: 06/03/17 02:59 Last Admin: 06/03/17 03:24 Dose: 4 mg Sodium Chloride (Saline Flush) 10 ml FLUSH ASDIRECTED PRN PRN Reason: Keep Vein Open Sodium Chloride (Saline Flush) 2.5 ml FLUSH ASDIRECTED PRN PRN Reason: Keep Vein Open - Exam Quality Assessment: Supplemental Oxygen General: Alert, Oriented, Cooperative, Mild Distress Lungs: Clear to Auscultation, Normal Respiratory Effort Cardiovascular: Regular Rate, Regular Rhythm GI/Abdominal Exam: Normal Bowel Sounds Extremities: Normal Inspection, Normal Range of Motion, Other (tenderness of right arm area and back. 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 Patient requires IV pain management and nausea/vomiting controlled. -Patient to control patient's pain with IV Dilaudid, Zofran and Phenergan for nausea and vomiting control, IV fluids for appropriate hydration - Patient's Hemin for her AIP is here, she will get 1 dose today, 1 dose tomorrow. Then she shall be discharged provided she is under good pain control. She will then get a dose from oncology on Wednesday, another dose from oncology on Wednesday and she'll be reassessed to see if she needs a fifth dose. I have spoken with oncology, I have spoken with pharmacy and everybody is on board with this plan. -After patient is discharged on Wednesday provided she is still stable and in good pain control patient shall have a follow-up appointment with me on Wednesday. Anticipated discharge is on Wednesday after transfusion.
[2017-06-04] MEDS: HEMIN IV SCH (14:43)
[2017-06-04] MEDS: WATER FOR INJECTION IV SCH (14:43)
[2017-06-04] MEDS: STERILE IV SCH (14:43)
[2017-06-04] MEDS ORDERED: HYDROmorphone 1 MG/ML Syringe IVPUSH ONE (16:38)
[2017-06-04] MEDS: Acetaminophen 325 MG Tab PO PRN (17:45)
[2017-06-04] MEDS ORDERED: HYDROmorphone 2 MG Tab PO PRN (18:54)
[2017-06-04] MEDS ORDERED: Diclofenac Sodium 50 MG Tab.EC PO PRN (18:55)
[2017-06-04] MEDS ORDERED: Cyclobenzaprine 10 MG Tab PO PRN ×2 (20:39→20:54)
[2017-06-04] MEDS ORDERED: HYDROmorphone 2 MG/ML Syringe IVPUSH PRN (20:52)
[2017-06-05] MEDS: HYDROmorphone 1 MG/ML Syringe IVPUSH PRN ×3 (04:27→14:33)
[2017-06-05 06:54] LABS: CHLORIDE,CL 106 mmol/L (98-107); SODIUM,NA 137 mmol/L (136-145)
[2017-06-05] MEDS: Ondansetron 4 MG/2 ML SDV IVPUSH PRN ×2 (07:23→14:33)
[2017-06-05] MEDS: Acetaminophen 325 MG Tab PO PRN ×2 (07:58→13:54)
[2017-06-05] MEDS: Dextrose 5%-0.45% NaCl 1,000 ML IV SCH (08:01)
[2017-06-05] MEDS: Enoxaparin 40 MG/0.4 ML Syringe SUBCUT SCH (12:46)
[2017-06-05] MEDS ORDERED: Midodrine 5 MG Tab PO SCH (14:00)
[2017-06-05] MEDS: HEMIN IV SCH (14:35)
[2017-06-05] MEDS: STERILE IV SCH (14:35)
[2017-06-05] MEDS: WATER FOR INJECTION IV SCH (14:35)
--- NOTE | 2017-06-05 16:25 | PCM.DCSUM1 ---
Discharge Summary - Discharge Data Discharge Date: 06/05/17 Discharge Disposition: Home, Self-Care 01 Condition: Good - Patient Summary/Data Hospital Course: Admission diagnosis acute flare of porphyria Houspital course: 41 yo female with pmh of acute intermittent porphyria who was admitted for acute flare. She presented with symptoms of upper extremity and right sided back pain. She was admitted and hydrated with d5 1/2 NS. Hemin was not readily available and patient was offered transfer but declined. She preferred to be treated here waiting for medications to be delivered. After consulting with hematology in cancer center she was given IV Hemin two daily doses when they became available. Today patient's symptoms have resolved. The patient is to be discharged home. The plan is to give a third dose which is expected to arrive on Wednesday at the cancer center. - Patient Instructions Diet: Usual Diet as Tolerated - Discharge Plan Home Medications: Home Meds HYDROmorphone [Dilaudid] 2 mg PO Q4H PRN 07/14/13 [History] Ondansetron [Zofran] 4 mg PO Q8H PRN 07/14/13 [History] Methocarbamol [Robaxin] 500 mg PO Q6H 12/08/16 [History] Diclofenac Sodium [Voltaren] 50 mg PO BID 04/11/17 [History] LORazepam [Ativan] 0.5 mg PO BID 04/11/17 [History] Midodrine 5 mg PO TID 06/05/17 [History] Patient Handouts: Hemin injection Referrals: Ghulam Pascual MD [Resident] - 06/08/17 3:30 pm - Patient Data Vitals - Most Recent: Last Vital Signs Temp 37.4 C 06/05/17 11:45 Pulse 95 06/05/17 11:45 Resp 16 06/05/17 11:45 BP 92/42 L 06/05/17 11:45 Pulse Ox 95 06/05/17 11:45 Weight - Most Recent: 66.905 kg I&O - Last 24 hours: Intake & Output 06/05/17 06/05/17 06/05/17 06:59 14:59 22:59 Intake Total 2988 48 Output Total 1600 Balance 1388 48 Lab Results - Last 24 hrs: Laboratory Results - last 24 hr 06/05/17 06/05/17 Range/Units 05:52 05:52 WBC 5.91 (4.0-11.0) K/uL RBC 4.20 L (4.30-5.90) M/uL Hgb 12.2 (12.0-16.0) g/dL Hct 35.0 L (36.0-46.0) % MCV 83.3 (80.0-98.0) fL MCH 29.0 (27.0-32.0) pg MCHC 34.9 (31.0-37.0) g/dL RDW Std Deviation 37.0 (28.0-62.0) fl RDW Coeff of Shila 12 (11.0-15.0) % Plt Count 210 (150-400) K/uL MPV 9.00 (7.40-12.00) fL Neut % (Auto) 55.4 (48.0-80.0) % Lymph % (Auto) 30.8 (16.0-40.0) % [place] % (Auto) 8.3 (0.0-15.0) % Eos % (Auto) 5.2 (0.0-7.0) % Baso % (Auto) 0.3 (0.0-1.5) % Neut # (Auto) 3.3 (1.4-5.7) K/uL Lymph # (Auto) 1.8 (0.6-2.4) K/uL [place] # (Auto) 0.5 (0.0-0.8) K/uL Eos # (Auto) 0.3 (0.0-0.7) K/uL Baso # (Auto) 0.0 (0.0-0.1) K/uL Nucleated RBC % 0.0 /100WBC Nucleated RBCs # 0 K/uL Sodium 137 (136-145) mmol/L Potassium 3.6 (3.5-5.1) mmol/L Chloride 106 (98-107) mmol/L Carbon Dioxide 28.0 (21.0-32.0) mmol/L BUN 5 L (7.0-18.0) mg/dL Creatinine 0.8 (0.6-1.0) mg/dL Est Cr Clr Drug Dosing 77.33 mL/min Estimated GFR (MDRD) > 60.0 ml/min Glucose 84 (74-106) mg/dL Calcium 8.9 (8.5-10.1) mg/dL Total Bilirubin 0.3 (0.2-1.0) mg/dL AST 28 (15-37) IU/L ALT 29 (14-63) IU/L Alkaline Phosphatase 42 L (46-116) U/L Total Protein 5.8 L (6.4-8.2) g/dL Albumin 3.2 L (3.4-5.0) g/dL Globulin 2.6 (2.0-3.5) g/dL Albumin/Globulin Ratio 1.2 L (1.3-2.8) Med Orders - Current: Current Medications Acetaminophen (Tylenol) 650 mg PO Q4H PRN PRN Reason: Headache Last Admin: 06/05/17 13:54 Dose: 650 mg Cyclobenzaprine HCl (Flexeril) 5 mg PO TID PRN PRN Reason: Pain Last Admin: 06/04/17 22:01 Dose: 5 mg Diclofenac Sodium (Voltaren) 50 mg PO BIDMEALS PRN PRN Reason: Pain Enoxaparin Sodium (Lovenox) 40 mg SUBCUT Q24H [facility] Last Admin: 06/05/17 12:46 Dose: 40 mg Heparin Sodium (Porcine) (Heparin Lock Flush 10 Units/Ml) 50 unit FLUSH ONETIME ONE Stop: 06/05/17 17:31 Hydromorphone HCl (Dilaudid) 2 mg IVPUSH Q4H PRN PRN Reason: Pain Last Admin: 06/05/17 14:33 Dose: 2 mg Dextrose/Sodium Chloride (Dextrose 5%-1/2 Ns) 1,000 mls @ 125 mls/hr IV ASDIRECTED [facility] Last Admin: 06/05/17 08:01 Dose: 125 mls/hr Lorazepam (Ativan) 0.5 mg PO BEDTIME PRN PRN Reason: Anxiety Last Admin: 06/03/17 23:08 Dose: 0.5 mg Midodrine (Midodrine) 5 mg PO TID [facility] Last Admin: 06/05/17 13:49 Dose: 5 mg Ondansetron HCl (Zofran) 4 mg IVPUSH Q3H PRN PRN Reason: Nausea/Vomiting Last Admin: 06/05/17 14:33 Dose: 4 mg Promethazine HCl (Phenergan) 25 mg IM Q6H PRN PRN Reason: Nausea/Vomiting Senna/Docusate Sodium (Senna Plus) 1 tab PO BID PRN PRN Reason: Constipation Discontinued Medications Cyclobenzaprine HCl (Flexeril) 10 mg PO TID PRN PRN Reason: Pain Hemin (Panhematin) 313 mg IV ONETIME ONE Stop: 06/03/17 03:32 Last Admin: 06/03/17 04:26 Dose: Not Given Hydromorphone HCl (Dilaudid) 1 mg IVPUSH ONETIME ONE Stop: 06/03/17 02:59 Last Admin: 06/03/17 03:24 Dose: 1 mg Hydromorphone HCl (Dilaudid) 1 mg IVPUSH Q3H PRN PRN Reason: Pain Last Admin: 06/03/17 05:33 Dose: 1 mg Hydromorphone HCl (Dilaudid) 1 mg IVPUSH Q3H PRN PRN Reason: Pain Last Admin: 06/04/17 15:34 Dose: 1 mg Hydromorphone HCl (Dilaudid) 1 mg IVPUSH ONETIME ONE Stop: 06/04/17 16:39 Last Admin: 06/04/17 16:56 Dose: 1 mg Hydromorphone HCl (Dilaudid) 2 mg PO Q4H PRN PRN Reason: Pain Last Admin: 06/04/17 19:37 Dose: 2 mg Hydromorphone HCl (Dilaudid) 2 mg IVPUSH Q4H PRN PRN Reason: Pain Sodium Chloride (Normal Saline) 1,000 mls @ 999 mls/hr IV STAT ONE Stop: 06/03/17 03:58 Last Admin: 06/03/17 03:25 Dose: 999 mls/hr Hemin 350 mg/ Sterile Water 48 mls @ 48 mls/hr IV Q24H [facility] Stop: 06/05/17 15:44 Last Admin: 06/05/17 14:35 Dose: 48 mls/hr Ondansetron HCl (Zofran) 4 mg IVPUSH ONETIME ONE Stop: 06/03/17 02:59 Last Admin: 06/03/17 03:24 Dose: 4 mg Sodium Chloride (Saline Flush) 10 ml FLUSH ASDIRECTED PRN PRN Reason: Keep Vein Open Sodium Chloride (Saline Flush) 2.5 ml FLUSH ASDIRECTED PRN PRN Reason: Keep Vein Open
[2017-06-05] MEDS ORDERED: Heparin Sodium 10 Units/ML 5 ML Syringe FLUSH ONE (17:30)
[2017-06-05 17:44] VITALS: BP 96/53
== END 2017-06-05 17:40 | disposition home or self-care (01) ==
LOC: MW.ED 02:20 → MW.MS 03:53
PROVIDERS: ADMIT Internal Medicine; ATTEND Internal Medicine
DX: E80.21 Acute intermittent (hepatic) porphyria (principal); F41.9 Anxiety disorder, unspecified; Z88.1 Allergy status to other antibiotic agents; Z88.8 Allergy status to other drugs, medicaments and biological substances; Z91.040 Latex allergy status; Z88.0 Allergy status to penicillin; Z88.2 Allergy status to sulfonamides
CPT/HCPCS: 36415; 80053; 81001; 83735; 84120; 84311; 85025; 85610; 96361; 96374; 96375; 99284; A9270; J1170; J1640; J1642; J1650; J2405; J7040; J7042; 96372; 96376; G0378

== ENCOUNTER 2017-07-25 16:22 | Emergency (ER) | payer BC ==
--- NOTE | 2017-07-25 16:51 | EDM.PDOC ---
ED HPI GENERAL MEDICAL PROBLEM - General Chief Complaint: Respiratory Problem Stated Complaint: COUGH/CHEST/BACK PAIN/CHILLS/FEVER Time Seen by Provider: 07/25/17 16:31 - History of Present Illness INITIAL COMMENTS - FREE TEXT/NARRATIVE: HISTORY AND PHYSICAL: History of present illness: The patient is a 41-year-old female who has a significant past medical history of acute intermittent porphyria who presents with one week of body aches poor appetite dry cough runny nose sore throat intermittent headache and sinus congestion associated with a low-grade temperature, the highest of which is 100.1, but no GI complaints of abdominal pain vomiting or diarrhea. The patient has been seen by me in May for acute crisis and flareup of her porphyria for which she required hospitalization IV hydration and IV hemin; she has since followed up in the clinic with Dr. cornelius has been following there. She last had lab tests there on June 29 and says that she has not been seen in the last 1 week for these symptoms. She says that she went back to [place] for a visit and recently returned here in the symptoms started thereafter. She says she is able to eat and drink but she just doesn't have an appetite. She does not feel that her porphyria is in a flareup but she is concerned that she might go into one and she is also stating to me that her symptoms seem to be slowly improving and she was still concerned enough to come here today. Review of systems: As per history of present illness and below otherwise all systems reviewed and negative. Past medical history: As per history of present illness and as reviewed below otherwise noncontributory. Surgical history: As per history of present illness and as reviewed below otherwise noncontributory. Social history: No reported history of drug or alcohol abuse. Family history: As per history of present illness and as reviewed below otherwise noncontributory. Physical exam: General: Well-developed well-nourished female who is nontoxic and vital signs have been reviewed by me HEENT: Atraumatic, normocephalic, pupils reactive, negative for conjunctival pallor or scleral icterus, mucous membranes moist, throat clear of exudates and there is only minimal posterior oropharyngeal erythema right greater than left, uvula is midline, there is no anterior posterior cervical adenopathy and no nuchal rigidity, the nasal turbinates are slightly boggy but nonobstructing and there is no overt sinus tenderness on palpation,, neck supple, nontender, trachea midline. Lungs: Clear to auscultation, breath sounds equal bilaterally, chest nontender. No work of breathing wheezing or stridor Heart: S1S2, regular rate and rhythm no overt murmurs Abdomen: Soft, nondistended, nontender. NABS Pelvis: Deferred Genitourinary: Deferred. Rectal: Deferred. Extremities: Atraumatic, negative for cords or calf pain. Neurovascular unremarkable. Neuro: Awake, alert, oriented. Cranial nerves II through XII unremarkable. Cerebellum unremarkable. Motor and sensory unremarkable throughout. Exam nonfocal. Diagnostics: Chest x-ray rapid strep Therapeutics: Spacer and spacer teaching I discussed with her using [id number] Claritin or Nkechi for any of the sinus fluid she is experiencing and I have given her an albuterol inhaler with spacer to utilize if she starts having any spastic cough. Discussed a short burst of steroids but in light of her acute underlying disease process and unclear if that will change her in any way to trigger a crisis so we decided to hold off. She is comfortable with this care plan. And I also stressed need for close follow-up in the clinic Impression: Viral illness/bronchitis; history of acute intermittent porphyria stable Definitive disposition and diagnosis as appropriate pending reevaluation and review of above. Generalized Pain Score (Numeric/FACES): 4 - Related Data Allergies Allergy/AdvReac Type Severity Reaction Status Date / Time amoxicillin [Amoxicillin] Allergy unknown Verified 07/25/17 16:37 cephalexin [Cephalexin] Allergy unknown Verified 07/25/17 16:37 cephaloridine [Cephaloridine] Allergy unknown Verified 07/25/17 16:37 Cephalosporins Allergy unknown Verified 07/25/17 16:37 diphenhydramine HCl Allergy unknown Verified 07/25/17 16:37 [From Benadryl] erythromycin base Allergy unknown Verified 07/25/17 16:37 [Erythromycin Base] latex Allergy Hives Verified 07/25/17 16:37 levofloxacin [From Levaquin] Allergy unknown Verified 07/25/17 16:37 Macrolide Antibiotics Allergy unknown Verified 07/25/17 16:37 Penicillins Allergy unknown Verified 07/25/17 16:37 Sulfa (Sulfonamide Allergy unknown Verified 07/25/17 16:37 Antibiotics) Home Meds: Home Meds HYDROmorphone [Dilaudid] 2 mg PO Q4H PRN 07/14/13 [History] Ondansetron [Zofran] 4 mg PO Q8H PRN 07/14/13 [History] Methocarbamol [Robaxin] 500 mg PO Q6H 12/08/16 [History] Diclofenac Sodium [Voltaren] 50 mg PO BID 04/11/17 [History] LORazepam [Ativan] 0.5 mg PO BID 04/11/17 [History] Midodrine 5 mg PO TID 06/05/17 [History] Past Medical History HEENT History: Reports: None Cardiovascular History: Reports: Other (See Below) Other Cardiovascular History: POTS PRIMER BOXER History: Reports: , Other (See Below) Other OB/BYN History: tubal ligation Musculoskeletal History: Reports: Back Pain, Chronic, Neck Pain, Chronic, Osteoarthritis, Other (See Below) Other Musculoskeletal History: degenerative disk disease Neurological History: Reports: Other (See Below) Other Neuro History: Fibromyalgia and pain syndrome Psychiatric History: Reports: Anxiety Endocrine/Metabolic History: Reports: Other (See Below) Other Endocrine/Metabolic History: acute intermitent porphria Hematologic History: Reports: Other (See Below) Other Hematologic History: acute intermitent porphyria - Infectious Disease History Infectious Disease History: Reports: Chicken Pox - Past Surgical History HEENT Surgical History: Reports: None Cardiovascular Surgical History: Reports: None Endocrine Surgical History: Reports: None Neurological Surgical History: Reports: None Musculoskeletal Surgical History: Reports: None Social & Family History - Family History Family Medical History: Noncontributory - Caffeine Use Caffeine Use: Reports: None ED ROS GENERAL - Review of Systems Review Of Systems: ROS reveals no pertinent complaints other than HPI. ED EXAM, GENERAL - Physical Exam Exam: See Below (see Dictation) Course - Vital Signs Last Recorded V/S: Last Vital Signs Temp 37.0 C 07/25/17 16:32 Pulse 107 H 07/25/17 16:32 Resp 16 07/25/17 16:32 BP 115/68 07/25/17 16:32 Pulse Ox 97 07/25/17 16:32 - Orders/Labs/Meds Orders: Active Orders 24 hr Category Date Time Status Communication Order [RC] STAT Care 07/25/17 17:53 Ordered Chest 2V [CR] Stat Exams 07/25/17 16:46 Taken CULTURE STREP A CONFIRMATION [RM] Stat Lab 07/25/17 16:52 Results STREP SCRN A RAPID W CULT CONF [RM] Stat Lab 07/25/17 16:52 Ordered Departure - Departure Time of Disposition: 17:53 Disposition: Home, Self-Care 01 Condition: Good Clinical Impression: Viral illness - Discharge Information Referrals: Diego Dang MD [Primary Care Provider] - Forms: ED Department Discharge Additional Instructions: The following information is given to patients seen in the emergency department who are being discharged to home. This information is to outline your options for follow-up care. We provide all patients seen in our emergency department with a follow-up referral. The need for follow-up, as well as the timing and circumstances, are variable depending upon the specifics of your emergency department visit. If you don't have a primary care physician on staff, we will provide you with a referral. We always advise you to contact your personal physician following an emergency department visit to inform them of the circumstance of the visit and for follow-up with them and/or the need for any referrals to a consulting specialist. The emergency department will also refer you to a specialist when appropriate. This referral assures that you have the opportunity for followup care with a specialist. All of these measure are taken in an effort to provide you with optimal care, which includes your followup. Under all circumstances we always encourage you to contact your private physician who remains a resource for coordinating your care. When calling for followup care, please make the office aware that this follow-up is from your recent emergency room visit. If for any reason you are refused follow-up, please contact the [facility] emergency department at and ask to speak to the emergency department charge nurse. [facility] Primary care- [place] [address] Please contact our clinic and follow-up with Dr. Cornelius this week. Please post hydration and use [id number] Tylenol or ibuprofen for aches and pains and fevers. He may also introduce [id number] Claritin or Nkechi to help dry up fluid in her sinuses and use [id number] Flonase to help her not drainage of that fluid. Use albuterol inhaler via spacer for any coughing or tightness you experience with breathing. Return to ER as needed and as discussed - My Orders Last 24 Hours: My Active Orders 07/25/17 16:46 Chest 2V [CR] Stat 07/25/17 16:52 CULTURE STREP A CONFIRMATION [RM] Stat STREP SCRN A RAPID W CULT CONF [RM] Stat 07/25/17 17:53 Communication Order [RC] STAT - Assessment/Plan Last 24 Hours: My Active Orders 07/25/17 16:46 Chest 2V [CR] Stat 07/25/17 16:52 CULTURE STREP A CONFIRMATION [RM] Stat STREP SCRN A RAPID W CULT CONF [RM] Stat 07/25/17 17:53 Communication Order [RC] STAT
[2017-07-25 18:41] VITALS: BP 102/68
--- NOTE | 2017-07-27 13:19 | CR ---
EXAM DATE: 07/25/17 PATIENT'S AGE: 41 Patient: JESSIE NOLAN Facility: [place], [place] Site . Site : [id number] Study: XRay Chest [id number] 5:06:49 PM Ordering Physician: Christian Fernandes Final Report: INDICATION: Pain, cough. Shortness of breath. COMPARISON: none TECHNIQUE: Two view chest. FINDINGS: The lungs are clear. There is no evidence of pneumonia. There is a right sided Port-A-Cath which extends to the SVC. The heart, mediastinum and pulmonary vessels are of normal size. There is no evidence of pleural fluid. IMPRESSION: Negative chest. Dictated by Errol Krishna MD @ Jul 25 2017 5:09PM (Electronic Signature) Report Signed by Proxy. ROSELINE
== END 2017-07-25 18:36 | disposition home or self-care (01) ==
LOC: MW.ED 16:22
DX: B34.9 Viral infection, unspecified (principal); E80.21 Acute intermittent (hepatic) porphyria; Z88.1 Allergy status to other antibiotic agents; Z91.040 Latex allergy status; Z88.2 Allergy status to sulfonamides; Z88.8 Allergy status to other drugs, medicaments and biological substances; Z79.899 Other long term (current) drug therapy
CPT/HCPCS: 71046; 71046-26; 87081; 87880; 99283

== ENCOUNTER 2017-11-07 02:10 | Inpatient (IN) | payer BC, MEDICARE ==
--- NOTE | 2017-11-07 02:47 | EDM.PDOC ---
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 She is currently seeing Dr. Mireles and her oncology clinic as well as a family provider in our clinic. Her last admission was back in May and she had significant pain requiring IV Hemin to be given and she has followed up in the clinic. The patient usually notices that she is getting a flare up and tries to do her home care plan including carbohydrate loading hydrating. She presents to the ED tonight with a history of approximately 3 days of progressive increase in pain that she now feels is related to her disease process. She said initially she had some discomfort in her right hip and saw her provider at [facility] who thought it might be a bursitis but now the pain and the burning is spreading to her upper extremities her neck her contralateral hip. The patient that she has been trying to treat this at home with oral Dilaudid and Zofran that she receives from her pain physician out of [place] and it is not working. She's had no fevers or vomiting shortness of breath chest pain and although she told the nurse she has a headache it is not discretely a headache but it is originating from her upper back and neck she's had no recent trauma and has been eating and drinking normally except for the intermittent nausea. The patient last received hemin in May when I admitted her to the hospital and she has been managing small flareups as an outpatient with her cocktail of meds and carbohydrate loading. She has not reconnected with Dr. Mireles in the last week or so with these new symptoms as she thought it might not be related to her porphyria. Patient denies any recent trauma and has no neurosensory changes in her extremities or legs and no bowel or bladder disturbances. The pain that she is feeling is a burning-like sensation which is deep and she says all of this is now very consistent with her flareups. Patient has a history of bilateral tubal ligation and denies Review of systems: As per history of present illness and below otherwise all systems reviewed and negative. Past medical history: As per history of present illness and as reviewed below otherwise noncontributory. Surgical history: As per history of present illness and as reviewed below otherwise noncontributory. Social history: No reported history of drug or alcohol abuse. Family history: As per history of present illness and as reviewed below otherwise noncontributory. Physical exam: General: Well-developed well-nourished female who looks uncomfortable in the room but is nontoxic appearing and vital signs are noted by me HEENT: Atraumatic, normocephalic, pupils reactive, negative for conjunctival pallor or scleral icterus, mucous membranes moist, throat clear, neck supple, nontender, trachea midline. There is no cervical adenopathy or nuchal rigidity Lungs: Clear to auscultation, breath sounds equal bilaterally, chest nontender. No wheezing stridor or work of breathing Heart: S1S2, regular rhythm and slightly tachycardic rate of my evaluation Abdomen: Soft, nondistended, nontender. NABS Negative for costovertebral tenderness. Pelvis: Stable nontender. No discrete tenderness when I palpate at the hips and there is no soft tissue changes are swelling Genitourinary: Deferred. Rectal: Deferred. Extremities: Atraumatic, negative for cords or calf pain. Neurovascular unremarkable. Full range of motion without defects or deficits Neuro: Awake, alert, oriented. Cranial nerves II through XII unremarkable. Cerebellum unremarkable. Motor and sensory unremarkable throughout. Exam nonfocal. Back: There are no midline step-offs in his defects of the thoracic or lumbar spine no CVA tenderness or posterior rib tenderness and no soft tissue injuries or swelling are seen Diagnostics: CBC CMP UA Therapeutics: IV fluids, D5 half-normal saline, Dilaudid Zofran I told the patient that I have contacted the nursing malt house supervisor to see if there is any IV hemin unavailable that I can dose her with. It is not something that we normally stock so she is aware that we may not have that. According to the nursing malt house supervisor we do not have any hemin and stock and it would have to be ordered through the oncology clinic. Patient has been made aware of this. I discussed with the patient her lab tests being within normal limits and her pain level. She is aware that we do not have any IV hemin I have offered her transfer to higher level of care at [facility] in [place] and she has declined that and will prefer to be admitted here for IV hydration and pain management and await hemin. She states that if she feels that she is not improving and needs more emergent hemin dosing she will request the transfer at that time. She says she states understanding and refers to stay here at our hospital despite knowing that we will not be able to get this medication until Wednesday at the minimum. 0350: Case was discussed with Dr. Dominguez who agrees with admission and would like inpatient status. He is aware of my conversation with the patient about offering of transfer to obtain IV hemin more quickly and that she declines. Impression: Diffuse body pain consistent with flareup of acute intermittent porphyria Definitive disposition and diagnosis as appropriate pending reevaluation and review of above. right shoulder Pain Score (Numeric/FACES): 7 headache Pain Score (Numeric/FACES): 6 - Related Data Allergies Allergy/AdvReac Type Severity Reaction Status Date / Time amoxicillin [Amoxicillin] Allergy unknown Verified 11/07/17 02:37 cephalexin [Cephalexin] Allergy unknown Verified 11/07/17 02:37 cephaloridine [Cephaloridine] Allergy unknown Verified 11/07/17 02:37 Cephalosporins Allergy unknown Verified 11/07/17 02:37 ciprofloxacin [From Cipro] Allergy Cannot Verified 11/07/17 02:37 Remember diphenhydramine Allergy Cannot Verified 11/07/17 02:37 [From Benadryl] Remember diphenhydramine HCl Allergy unknown Verified 11/07/17 02:37 [From Benadryl] erythromycin base Allergy unknown Verified 11/07/17 02:37 [Erythromycin Base] latex Allergy Hives Verified 11/07/17 02:37 Latex, Natural Rubber Allergy Cannot Verified 11/07/17 02:37 Remember levofloxacin [From Levaquin] Allergy unknown Verified 11/07/17 02:37 Macrolide Antibiotics Allergy unknown Verified 11/07/17 02:37 Penicillins Allergy unknown Verified 11/07/17 02:37 Sulfa (Sulfonamide Allergy unknown Verified 11/07/17 02:37 Antibiotics) Home Meds: Home Meds HYDROmorphone [Dilaudid] 2 mg PO Q4H PRN 07/14/13 [History] Ondansetron [Zofran] 4 mg PO Q8H PRN 07/14/13 [History] Diclofenac Sodium [Voltaren] 50 mg PO BID 04/11/17 [History] LORazepam [Ativan] 1 mg PO BID 04/11/17 [History] Midodrine 5 mg PO TID 06/05/17 [History] Propranolol [Inderal] 10 mg PO ASDIRECTED 11/07/17 [History] Past Medical History HEENT History: Reports: None Cardiovascular History: Reports: Other (See Below) Other Cardiovascular History: POTS 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: , Other (See Below) 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 Musculoskeletal History: Reports: Back Pain, Chronic, Neck Pain, Chronic, Osteoarthritis, Other (See Below) Other Musculoskeletal History: degenerative disk disease Neurological History: Reports: Other (See Below) Other Neuro History: Fibromyalgia and pain syndrome Psychiatric History: Reports: Anxiety Endocrine/Metabolic History: Reports: Other (See Below) Other Endocrine/Metabolic History: acute intermitent porphria Hematologic History: Reports: Other (See Below) Other Hematologic History: acute intermitent porphyria - Infectious Disease History Infectious Disease History: Reports: Chicken Pox - Past Surgical History HEENT Surgical History: Reports: None Cardiovascular Surgical History: Reports: None Female Surgical History: Reports: Tubal Ligation Endocrine Surgical History: Reports: None Neurological Surgical History: Reports: None Musculoskeletal Surgical History: Reports: None Dermatological Surgical History: Reports: Other (See Below) Social & Family History - Family History Family Medical History: Noncontributory - Tobacco Use Smoking Status *Q: Never Smoker - Caffeine Use Caffeine Use: Reports: None - Recreational Drug Use Recreational Drug Use: No ED ROS GENERAL - Review of Systems Review Of Systems: ROS reveals no pertinent complaints other than HPI. ED EXAM, GENERAL - Physical Exam Exam: See Below (See dictation) Course - Vital Signs Last Recorded V/S: Last Vital Signs Temp 36.6 C 11/07/17 03:45 Pulse 110 H 11/07/17 03:45 Resp 18 11/07/17 03:45 BP 99/55 L 11/07/17 03:45 Pulse Ox 97 11/07/17 03:45 - Orders/Labs/Meds Orders: Active Orders 24 hr Category Date Time Status Patient Status [ADT] Stat ADT 11/07/17 03:51 Ordered UA W/MICROSCOPIC [URIN] Stat Lab 11/07/17 02:57 Ordered D5 1/2 NS w/ 20 mEq/L KCl 1,000 ml Med 11/07/17 03:00 Active IV ASDIRECTED Sodium Chloride 0.9% [Saline Flush] Med 11/07/17 02:57 Active 10 ml FLUSH ASDIRECTED PRN Sodium Chloride 0.9% [Saline Flush] Med 11/07/17 02:57 Active 2.5 ml FLUSH ASDIRECTED PRN Saline Lock Insert [OM.PC] Stat Oth 11/07/17 02:56 Ordered Medication Orders Potassium Chloride/Dextrose/Sod Cl (D5 1/2 Ns W/ 20 Meq/L Kcl) 1,000 mls @ 150 mls/hr IV ASDIRECTED ISMAEL Last Admin: 11/07/17 03:12 Dose: 150 mls/hr Sodium Chloride (Saline Flush) 10 ml FLUSH ASDIRECTED PRN PRN Reason: Keep Vein Open Sodium Chloride (Saline Flush) 2.5 ml FLUSH ASDIRECTED PRN PRN Reason: Keep Vein Open Labs: Laboratory Tests 11/07/17 11/07/17 Range/Units 03:13 03:13 WBC 6.54 (4.0-11.0) K/uL RBC 4.69 (4.30-5.90) M/uL Hgb 13.4 (12.0-16.0) g/dL Hct 38.5 (36.0-46.0) % MCV 82.1 (80.0-98.0) fL MCH 28.6 (27.0-32.0) pg MCHC 34.8 (31.0-37.0) g/dL RDW Std Deviation 37.2 (28.0-62.0) fl RDW Coeff of Shila 12 (11.0-15.0) % Plt Count 215 (150-400) K/uL MPV 9.00 (7.40-12.00) fL Neut % (Auto) 43.1 L (48.0-80.0) % Lymph % (Auto) 45.9 H (16.0-40.0) % [place] % (Auto) 7.2 (0.0-15.0) % Eos % (Auto) 3.5 (0.0-7.0) % Baso % (Auto) 0.3 (0.0-1.5) % Neut # (Auto) 2.8 (1.4-5.7) K/uL Lymph # (Auto) 3.0 H (0.6-2.4) K/uL [place] # (Auto) 0.5 (0.0-0.8) K/uL Eos # (Auto) 0.2 (0.0-0.7) K/uL Baso # (Auto) 0.0 (0.0-0.1) K/uL Nucleated RBC % 0.0 /100WBC Nucleated RBCs # 0 K/uL Sodium 141 (136-145) mmol/L Potassium 3.7 (3.5-5.1) mmol/L Chloride 104 (98-107) mmol/L Carbon Dioxide 30.0 (21.0-32.0) mmol/L BUN 13 (7.0-18.0) mg/dL Creatinine 1.0 (0.6-1.0) mg/dL Est Cr Clr Drug Dosing 64.58 mL/min Estimated GFR (MDRD) > 60.0 ml/min Glucose 86 (74-106) mg/dL Calcium 10.1 (8.5-10.1) mg/dL Total Bilirubin 0.4 (0.2-1.0) mg/dL AST 25 (15-37) IU/L ALT 34 (14-63) IU/L Alkaline Phosphatase 53 (46-116) U/L Total Protein 6.9 (6.4-8.2) g/dL Albumin 3.8 (3.4-5.0) g/dL Globulin 3.1 (2.0-3.5) g/dL Albumin/Globulin Ratio 1.2 L (1.3-2.8) Meds: Medications Generic Name Dose Route Start Last Admin Trade Name Freq PRN Reason Stop Dose Admin Potassium Chloride/Dextrose/Sod Cl 1,000 mls @ 150 mls/hr 11/07/17 03:00 11/16 03:12 D5 1/2 Ns W/ 20 Meq/L Kcl IV 150 mls/hr ASDIRECTED ISMAEL Administration Sodium Chloride 10 ml 11/07/17 02:57 Saline Flush FLUSH ASDIRECTED PRN Keep Vein Open Sodium Chloride 2.5 ml 11/07/17 02:57 Saline Flush FLUSH ASDIRECTED PRN Keep Vein Open Discontinued Medications Generic Name Dose Route Start Last Admin Trade Name Alexandrea PRN Reason Stop Dose Admin Hydromorphone HCl 1 mg 11/07/17 02:57 11/07/17 03:15 Dilaudid IVPUSH 11/07/17 02:58 1 mg ONETIME ONE Administration Hydromorphone HCl 1 mg 11/07/17 03:46 Dilaudid IVPUSH 11/07/17 03:47 ONETIME ONE Ondansetron HCl 4 mg 11/07/17 02:57 11/07/17 03:15 Zofran IVPUSH 11/07/17 02:58 4 mg ONETIME ONE Administration Departure - Departure Time of Disposition: 03:54 Disposition: Admitted As Inpatient 67 Condition: Good Clinical Impression: Acute intermittent porphyria, Intractable pain - Discharge Information Referrals: Diego Dang MD [Primary Care Provider] - Forms: ED Department Discharge - My Orders Last 24 Hours: My Active Orders 11/07/17 02:56 Saline Lock Insert [OM.PC] Stat 11/07/17 02:57 UA W/MICROSCOPIC [URIN] Stat Sodium Chloride 0.9% [Saline Flush] 10 ml FLUSH ASDIRECTED PRN Sodium Chloride 0.9% [Saline Flush] 2.5 ml FLUSH ASDIRECTED PRN 11/07/17 03:00 D5 1/2 NS w/ 20 mEq/L KCl 1,000 ml IV ASDIRECTED 11/07/17 03:51 Patient Status [ADT] Stat - Assessment/Plan Last 24 Hours: My Active Orders 11/07/17 02:56 Saline Lock Insert [OM.PC] Stat 11/07/17 02:57 UA W/MICROSCOPIC [URIN] Stat Sodium Chloride 0.9% [Saline Flush] 10 ml FLUSH ASDIRECTED PRN Sodium Chloride 0.9% [Saline Flush] 2.5 ml FLUSH ASDIRECTED PRN 11/07/17 03:00 D5 1/2 NS w/ 20 mEq/L KCl 1,000 ml IV ASDIRECTED 11/07/17 03:51 Patient Status [ADT] Stat
[2017-11-07] MEDS ORDERED: Sodium Chloride 0.9% 10 ML Syringe FLUSH PRN (02:57)
[2017-11-07] MEDS ORDERED: Ondansetron 4 MG/2 ML SDV IVPUSH ONE (02:57)
[2017-11-07] MEDS ORDERED: Sodium Chloride 0.9% 2.5 ML Syringe FLUSH PRN (02:57)
[2017-11-07] MEDS ORDERED: HYDROmorphone 1 MG/ML Syringe IVPUSH ONE ×2 (02:57→03:46)
[2017-11-07] MEDS ORDERED: D5 1/2 NS w/ 20 mEq/L KCl 1,000 ML IV SCH (03:00)
[2017-11-07 03:39] LABS: CHLORIDE,CL 104 mmol/L (98-107); SODIUM,NA 141 mmol/L (136-145)
[2017-11-07] MEDS ORDERED: LORazepam 2 MG/ML SDV IVPUSH ONE (03:57)
[2017-11-07] MEDS: HYDROmorphone 1 MG/ML Syringe IVPUSH PRN ×7 (07:21→23:37)
[2017-11-07] MEDS: Ondansetron 4 MG/2 ML SDV IVPUSH PRN ×2 (08:46→12:51)
--- NOTE | 2017-11-07 09:01 | PCM.HP ---
H&P History of Present Illness - General Date of Service: 11/07/17 Admit Problem/Dx: Admission Diagnosis/Problem Admission Diagnosis/Problem Intractable pain Source of Information: Patient - History of Present Illness Initial Comments - Free Text/Narative: The patient is a 41-year-old female with past medical history of intermittent porphyria, who presented to the ER last night with 3 day history of progressive pain. She reports it started in her right hip and then extended to her upper extremities into her neck and then to her left hip. She states this is a classic presentation of an acute flare up. She tried to manage this at home with PO Dilaudid, Zofran and carbo loading. The pain got to be too bad and she presented to the ER. In the ER, they did labwork, gave her IV fluids, Dilaudid and Zofran. She had been previously admitted back in May and needed IV Hemin. The ER did check with the hospital and we do not have any IV hemin available and it needs to be ordered. The patient was offered transfer to [place] for IV Hemin, but she declined. The patient denies any chest pain, shortness of breath, or neurological symptoms. right shoulder Pain Score (Numeric/FACES): 7 headache Pain Score (Numeric/FACES): 6 - Related Data Allergies/Adverse Reactions: Allergies Allergy/AdvReac Type Severity Reaction Status Date / Time amoxicillin [Amoxicillin] Allergy unknown Verified 11/07/17 02:37 cephalexin [Cephalexin] Allergy unknown Verified 11/07/17 02:37 cephaloridine [Cephaloridine] Allergy unknown Verified 11/07/17 02:37 Cephalosporins Allergy unknown Verified 11/07/17 02:37 ciprofloxacin [From Cipro] Allergy Cannot Verified 11/07/17 02:37 Remember diphenhydramine Allergy Cannot Verified 11/07/17 02:37 [From Benadryl] Remember diphenhydramine HCl Allergy unknown Verified 11/07/17 02:37 [From Benadryl] erythromycin base Allergy unknown Verified 11/07/17 02:37 [Erythromycin Base] latex Allergy Hives Verified 11/07/17 02:37 Latex, Natural Rubber Allergy Cannot Verified 11/07/17 02:37 Remember levofloxacin [From Levaquin] Allergy unknown Verified 11/07/17 02:37 Macrolide Antibiotics Allergy unknown Verified 11/07/17 02:37 Penicillins Allergy unknown Verified 11/07/17 02:37 Sulfa (Sulfonamide Allergy unknown Verified 11/07/17 02:37 Antibiotics) Home Medications: Home Meds HYDROmorphone [Dilaudid] 2 mg PO Q4H PRN 07/14/13 [History] Ondansetron [Zofran] 4 mg PO Q8H PRN 07/14/13 [History] Diclofenac Sodium [Voltaren] 50 mg PO BID 04/11/17 [History] LORazepam [Ativan] 1 mg PO BID 04/11/17 [History] Midodrine 5 mg PO TID 06/05/17 [History] Propranolol [Inderal] 10 mg PO ASDIRECTED 11/07/17 [History] Past Medical History HEENT History: Reports: Other (See Below) Other HEENT History: hearing impairment Cardiovascular History: Reports: Other (See Below) Other Cardiovascular History: POTS Respiratory History: Reports: None Gastrointestinal History: Reports: Other (See Below) Other Gastrointestinal History: gastroparesis Genitourinary History: Reports: None 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: , Other (See Below) Other OB/BYN History: tubal ligation Musculoskeletal History: Reports: Back Pain, Chronic, Neck Pain, Chronic, Osteoarthritis, Other (See Below) Other Musculoskeletal History: degenerative disk disease Neurological History: Reports: Neuropathy, Peripheral, Other (See Below) Other Neuro History: Fibromyalgia and pain syndrome Psychiatric History: Reports: Anxiety Endocrine/Metabolic History: Reports: Other (See Below) Other Endocrine/Metabolic History: porphyria (2001), to be tested for Kyle's disease Hematologic History: Reports: Anemia, Iron Deficiency, Other (See Below) Other Hematologic History: acute intermitent porphyria Immunologic History: Reports: None Oncologic (Cancer) History: Reports: None Dermatologic History: Reports: Cellulitis - Infectious Disease History Infectious Disease History: Reports: Chicken Pox - Past Surgical History HEENT Surgical History: Reports: None Cardiovascular Surgical History: Reports: None Respiratory Surgical History: Reports: None GI Surgical History: Reports: None Female Surgical History: Reports: Tubal Ligation Endocrine Surgical History: Reports: None Neurological Surgical History: Reports: None Musculoskeletal Surgical History: Reports: None Oncologic Surgical History: Reports: None Social & Family History - Family History Family Medical History: Noncontributory - Tobacco Use Smoking Status *Q: Never Smoker Second Hand Smoke Exposure: No - Caffeine Use Caffeine Use: Reports: Coffee - Alcohol Use Alcohol Use History: No - Recreational Drug Use Recreational Drug Use: No H&P Review of Systems - Review of Systems: Review Of Systems: See Below General: Reports: Chills, Fatigue. Denies: Fever HEENT: Reports: Headaches Pulmonary: Reports: No Symptoms Cardiovascular: Reports: No Symptoms Gastrointestinal: Reports: Nausea. Denies: Abdominal Pain, Constipation, Diarrhea, Vomiting Genitourinary: Reports: No Symptoms Musculoskeletal: Reports: Neck Pain, Back Pain, Other (hip pain) Skin: Reports: No Symptoms Psychiatric: Reports: No Symptoms Neurological: Reports: No Symptoms Exam - Exam Exam: See Below - Vital Signs Vital Signs: Last Vital Signs Temp 99 F 11/07/17 08:39 Pulse 107 H 11/07/17 08:39 Resp 18 11/07/17 08:39 BP 103/59 L 11/07/17 08:39 Pulse Ox 96 11/07/17 08:39 Weight: 64 kg - Exam General: Alert, Oriented, Cooperative Lungs: Clear to Auscultation, Normal Respiratory Effort Cardiovascular: Regular Rate, Regular Rhythm GI/Abdominal Exam: Normal Bowel Sounds, Soft, Non-Tender, No Distention Extremities: Normal Inspection, No Pedal Edema Skin: Warm, Dry Neurological: Cranial Nerves Intact, Strength Equal Bilateral Neuro Extensive - Mental Status: Alert, Oriented x3, Normal Mood/Affect Psychiatric: Alert, Normal Affect, Normal Mood - Patient Data Lab Results Last 24 hrs: Laboratory Results - last 24 hr 11/07/17 11/07/17 11/07/17 Range/Units 03:13 03:13 04:42 WBC 6.54 (4.0-11.0) K/uL RBC 4.69 (4.30-5.90) M/uL Hgb 13.4 (12.0-16.0) g/dL Hct 38.5 (36.0-46.0) % MCV 82.1 (80.0-98.0) fL MCH 28.6 (27.0-32.0) pg MCHC 34.8 (31.0-37.0) g/dL RDW Std Deviation 37.2 (28.0-62.0) fl RDW Coeff of Shila 12 (11.0-15.0) % Plt Count 215 (150-400) K/uL MPV 9.00 (7.40-12.00) fL Neut % (Auto) 43.1 L (48.0-80.0) % Lymph % (Auto) 45.9 H (16.0-40.0) % [place] % (Auto) 7.2 (0.0-15.0) % Eos % (Auto) 3.5 (0.0-7.0) % Baso % (Auto) 0.3 (0.0-1.5) % Neut # (Auto) 2.8 (1.4-5.7) K/uL Lymph # (Auto) 3.0 H (0.6-2.4) K/uL [place] # (Auto) 0.5 (0.0-0.8) K/uL Eos # (Auto) 0.2 (0.0-0.7) K/uL Baso # (Auto) 0.0 (0.0-0.1) K/uL Nucleated RBC % 0.0 /100WBC Nucleated RBCs # 0 K/uL Sodium 141 (136-145) mmol/L Potassium 3.7 (3.5-5.1) mmol/L Chloride 104 (98-107) mmol/L Carbon Dioxide 30.0 (21.0-32.0) mmol/L BUN 13 (7.0-18.0) mg/dL Creatinine 1.0 (0.6-1.0) mg/dL Est Cr Clr Drug Dosing 64.58 mL/min Estimated GFR (MDRD) > 60.0 ml/min Glucose 86 (74-106) mg/dL Calcium 10.1 (8.5-10.1) mg/dL Total Bilirubin 0.4 (0.2-1.0) mg/dL AST 25 (15-37) IU/L ALT 34 (14-63) IU/L Alkaline Phosphatase 53 (46-116) U/L Total Protein 6.9 (6.4-8.2) g/dL Albumin 3.8 (3.4-5.0) g/dL Globulin 3.1 (2.0-3.5) g/dL Albumin/Globulin Ratio 1.2 L (1.3-2.8) Urine Color YELLOW Urine Appearance CLEAR Urine pH 6.0 (5.0-8.0) Ur Specific [place] 1.020 (1.001-1.035) Urine Protein NEGATIVE (NEGATIVE) mg/dL Urine Glucose (UA) NEGATIVE (NEGATIVE) mg/dL Urine Ketones NEGATIVE (NEGATIVE) mg/dL Urine Occult Blood NEGATIVE (NEGATIVE) Urine Nitrite NEGATIVE (NEGATIVE) Urine Bilirubin NEGATIVE (NEGATIVE) Urine Urobilinogen 0.2 (<2.0) EU/dL Ur Leukocyte Esterase NEGATIVE (NEGATIVE) Urine RBC 0-1 (0-2/HPF) Urine WBC 0-1 (0-5/HPF) Ur Epithelial Cells OCCASIONAL (NONE-FEW) Urine Bacteria RARE (NEGATIVE) Result Diagrams: 11/07/17 03:13 11/07/17 03:13 Problem List Initiated/Reviewed/Updated: Yes Orders Last 24hrs: Active Orders 24 hr Category Date Time Status Patient Status [ADT] Stat ADT 11/07/17 03:51 Active Intake and Output [RC] ASDIRECTED Care 11/07/17 08:39 Active Vital Signs [RC] PER UNIT ROUTINE Care 11/07/17 08:39 Active Clear Liquid Diet [DIET] Diet 11/07/17 Breakfast Active UA W/MICROSCOPIC [URIN] Stat Lab 11/07/17 04:42 Ordered D5 1/2 NS w/ 20 mEq/L KCl 1,000 ml Med 11/07/17 03:00 Active IV ASDIRECTED HYDROmorphone [Dilaudid] Med 11/07/17 05:47 Active 0.5 mg IVPUSH Q2H PRN Ondansetron [Zofran] Med 11/07/17 07:30 Active 4 mg IVPUSH Q4H PRN Sodium Chloride 0.9% [Normal Saline] 1,000 ml Med 11/07/17 09:30 Active IV ASDIRECTED Sodium Chloride 0.9% [Saline Flush] Med 11/07/17 02:57 Active 10 ml FLUSH ASDIRECTED PRN Sodium Chloride 0.9% [Saline Flush] Med 11/07/17 02:57 Active 2.5 ml FLUSH ASDIRECTED PRN Saline Lock Insert [OM.PC] Stat Oth 11/07/17 02:56 Ordered Resuscitation Status Routine Resus Stat 11/07/17 08:39 Ordered Medication Orders Hydromorphone HCl (Dilaudid) 0.5 mg IVPUSH Q2H PRN PRN Reason: Pain Last Admin: 11/07/17 07:21 Dose: 0.5 mg Potassium Chloride/Dextrose/Sod Cl (D5 1/2 Ns W/ 20 Meq/L Kcl) 1,000 mls @ 150 mls/hr IV ASDIRECTED ISMAEL Stop: 11/07/17 09:30 Last Admin: 11/07/17 03:12 Dose: 150 mls/hr Sodium Chloride (Normal Saline) 1,000 mls @ 150 mls/hr IV ASDIRECTED ISMAEL Ondansetron HCl (Zofran) 4 mg IVPUSH Q4H PRN PRN Reason: Nausea/Vomiting Last Admin: 11/07/17 08:46 Dose: 4 mg Sodium Chloride (Saline Flush) 10 ml FLUSH ASDIRECTED PRN PRN Reason: Keep Vein Open Sodium Chloride (Saline Flush) 2.5 ml FLUSH ASDIRECTED PRN PRN Reason: Keep Vein Open Assessment/Plan Comment:: 1. admit inpatient 2. Code Status- full 3.Vitals per routine 4. I/Os per routine 5. Diet- clear liquid 6. DVT prophylaxis -lovenox 7. Acute intermittent porphyria flare-up- continue IV fluids, D5 1/2NS at 100 mL , pain control with dilaudid. After checking with pharmacy Hemin is available, so we will give a daily dose of that, dosing per pharmacy.
[2017-11-07] MEDS ORDERED: Sodium Chloride 0.9% 1,000 ML IV SCH (09:30)
[2017-11-07] MEDS ORDERED: Sodium Chloride 23.4% 154 MEQ in Dextrose 10% in Water 1,000 ML IV SCH ×2 (11:45)
[2017-11-07] MEDS ORDERED: Sodium Chloride 23.4% 77 MEQ in Dextrose 10% in Water 500 ML IV SCH ×2 (12:30)
[2017-11-07] MEDS ORDERED: HEMIN IV ONE ×5 (12:30→12:45)
[2017-11-07] MEDS ORDERED: WATER FOR INJECTION IV ONE ×4 (12:45)
[2017-11-07] MEDS ORDERED: STERILE IV ONE ×4 (12:45)
[2017-11-07] MEDS: Acetaminophen 325 MG Tab PO PRN (12:53)
[2017-11-07] MEDS: Dextrose 5%-0.45% NaCl 1,000 ML IV SCH (14:31)
[2017-11-07 17:58] LABS: CHLORIDE,CL 107 mmol/L (98-107); SODIUM,NA 140 mmol/L (136-145)
[2017-11-08] MEDS: Dextrose 5%-0.45% NaCl 1,000 ML IV SCH ×3 (00:47→23:27)
[2017-11-08] MEDS: LORazepam 1 MG Tab PO PRN ×2 (01:11→23:18)
[2017-11-08] MEDS: HYDROmorphone 1 MG/ML Syringe IVPUSH PRN ×5 (05:39→23:19)
[2017-11-08] MEDS: Ondansetron 4 MG/2 ML SDV IVPUSH PRN ×2 (05:44→15:28)
[2017-11-08 05:53] LABS: CHLORIDE,CL 105 mmol/L (98-107); SODIUM,NA 138 mmol/L (136-145)
[2017-11-08] MEDS: Acetaminophen 325 MG Tab PO PRN ×2 (07:31→20:02)
--- NOTE | 2017-11-08 08:20 | PCM.PN ---
- General Info Date of Service: 11/08/17 Subjective Update: The patient is a 41 year old female who was admitted for acute intermittent porphyria flare up. Yesterday she received D5 1/2 NS and Hemin and was feeling better last night but this morning she reports pain again in her low back and legs. Yesterday she was receiving dilaudid every 2-4 hours but went without any pain meds from midnight to this morning. She was able to tolerate some crackers last night without nausea. She denies any chest pain or shortness of breath. - Review of Systems General: Reports: No Symptoms HEENT: Reports: Headaches Pulmonary: Reports: No Symptoms Cardiovascular: Reports: No Symptoms Gastrointestinal: Reports: Abdominal Pain. Denies: Constipation, Diarrhea, Nausea, Vomiting Genitourinary: Reports: No Symptoms Musculoskeletal: Reports: Neck Pain, Back Pain, Leg Pain Skin: Reports: No Symptoms Neurological: Reports: No Symptoms Psychiatric: Reports: No Symptoms - Patient Data Vitals - Most Recent: Last Vital Signs Temp 98.9 F 11/08/17 04:00 Pulse 92 11/08/17 04:00 Resp 20 11/08/17 04:00 BP 115/55 L 11/08/17 04:00 Pulse Ox 97 11/08/17 04:00 Weight - Most Recent: 64 kg I&O - Last 24 Hours: Intake & Output 11/07/17 11/08/17 11/08/17 22:59 06:59 14:59 Intake Total 841 1400 Output Total 450 750 Balance 391 650 Lab Results Last 24 Hours: Laboratory Results - last 24 hr 11/07/17 11/08/17 11/08/17 Range/Units 17:28 05:26 05:26 WBC 8.33 (4.0-11.0) K/uL RBC 4.64 (4.30-5.90) M/uL Hgb 13.2 (12.0-16.0) g/dL Hct 38.2 (36.0-46.0) % MCV 82.3 (80.0-98.0) fL MCH 28.4 (27.0-32.0) pg MCHC 34.6 (31.0-37.0) g/dL RDW Std Deviation 36.9 (28.0-62.0) fl RDW Coeff of Shila 12 (11.0-15.0) % Plt Count 179 (150-400) K/uL MPV 9.00 (7.40-12.00) fL Neut % (Auto) 70.0 (48.0-80.0) % Lymph % (Auto) 19.9 (16.0-40.0) % [place] % (Auto) 7.4 (0.0-15.0) % Eos % (Auto) 2.3 (0.0-7.0) % Baso % (Auto) 0.4 (0.0-1.5) % Neut # (Auto) 5.8 H (1.4-5.7) K/uL Lymph # (Auto) 1.7 (0.6-2.4) K/uL [place] # (Auto) 0.6 (0.0-0.8) K/uL Eos # (Auto) 0.2 (0.0-0.7) K/uL Baso # (Auto) 0.0 (0.0-0.1) K/uL Nucleated RBC % 0.0 /100WBC Nucleated RBCs # 0 K/uL Sodium 140 138 (136-145) mmol/L Potassium 3.9 3.8 (3.5-5.1) mmol/L Chloride 107 105 (98-107) mmol/L Carbon Dioxide 28.4 25.3 (21.0-32.0) mmol/L BUN 8 5 L (7.0-18.0) mg/dL Creatinine 0.8 1.0 (0.6-1.0) mg/dL Est Cr Clr Drug Dosing 81.31 65.05 mL/min Estimated GFR (MDRD) > 60.0 > 60.0 ml/min Glucose 88 98 (74-106) mg/dL Calcium 9.3 9.5 (8.5-10.1) mg/dL Med Orders - Current: Current Medications Acetaminophen (Tylenol) 650 mg PO Q4H PRN PRN Reason: Pain (Mild 1-3)/fever Last Admin: 11/08/17 07:31 Dose: 650 mg Hydromorphone HCl (Dilaudid) 0.5 mg IVPUSH Q2H PRN PRN Reason: Pain Last Admin: 11/08/17 08:10 Dose: 0.5 mg Dextrose/Sodium Chloride (Dextrose 5%-1/2 Ns) 1,000 mls @ 100 mls/hr IV ASDIRECTED [facility] Last Admin: 11/08/17 00:47 Dose: 100 mls/hr Hemin 350 mg/ Sterile Water 48 mls @ 48 mls/hr IV DAILY@1300 [facility] Lorazepam (Ativan) 1 mg PO BID PRN PRN Reason: Anxiety Last Admin: 11/08/17 01:11 Dose: 1 mg Ondansetron HCl (Zofran) 4 mg IVPUSH Q4H PRN PRN Reason: Nausea/Vomiting Last Admin: 11/08/17 05:44 Dose: 4 mg Sodium Chloride (Saline Flush) 10 ml FLUSH ASDIRECTED PRN PRN Reason: Keep Vein Open Sodium Chloride (Saline Flush) 2.5 ml FLUSH ASDIRECTED PRN PRN Reason: Keep Vein Open Discontinued Medications Hemin (Panhematin) 0 mg IV ONETIME ONE Stop: 11/07/17 12:31 Last Admin: 11/07/17 13:02 Dose: Not Given Hemin (Panhematin) 0 mg IV DAILY [facility] Hydromorphone HCl (Dilaudid) 1 mg IVPUSH ONETIME ONE Stop: 11/07/17 02:58 Last Admin: 11/07/17 03:15 Dose: 1 mg Hydromorphone HCl (Dilaudid) 1 mg IVPUSH ONETIME ONE Stop: 11/07/17 03:47 Last Admin: 11/07/17 03:54 Dose: 1 mg Potassium Chloride/Dextrose/Sod Cl (D5 1/2 Ns W/ 20 Meq/L Kcl) 1,000 mls @ 150 mls/hr IV ASDIRECTED [facility] Stop: 11/07/17 09:30 Last Admin: 11/07/17 03:12 Dose: 150 mls/hr Sodium Chloride (Normal Saline) 1,000 mls @ 150 mls/hr IV ASDIRECTED [facility] Last Admin: 11/07/17 10:37 Dose: 150 mls/hr Sodium Chloride 154 meq/ (Dextrose/Water) 1,038.5 mls @ 100 mls/hr IV ASDIRECTED [facility] Sodium Chloride 77 meq/ (Dextrose/Water) 519.25 mls @ 100 mls/hr IV ASDIRECTED [facility] Hemin 350 mg/ Sterile Water 48 mls @ 48 mls/hr IV ONETIME ONE Stop: 11/07/17 13:44 Last Admin: 11/07/17 12:59 Dose: 48 mls/hr Lorazepam (Ativan) 0.5 mg IVPUSH ONETIME ONE Stop: 11/07/17 03:58 Last Admin: 11/07/17 04:01 Dose: 0.5 mg Ondansetron HCl (Zofran) 4 mg IVPUSH ONETIME ONE Stop: 11/07/17 02:58 Last Admin: 11/07/17 03:15 Dose: 4 mg - Exam General: Alert, Oriented, Cooperative Lungs: Clear to Auscultation, Normal Respiratory Effort Cardiovascular: Regular Rate, Regular Rhythm GI/Abdominal Exam: Normal Bowel Sounds, Soft, Tender (mildly tender thoughout) Extremities: Normal Inspection, No Pedal Edema Skin: Warm, Dry Neurological: No New Focal Deficit Psy/Mental Status: Alert, Normal Affect, Normal Mood - Problem List Review Problem List Initiated/Reviewed/Updated: Yes - My Orders Last 24 Hours: My Active Orders 11/07/17 07:30 Ondansetron [Zofran] 4 mg IVPUSH Q4H PRN 11/07/17 08:39 Intake and Output [RC] Q12H Vital Signs [RC] Q4H Resuscitation Status Routine 11/07/17 12:30 Dextrose 5%-0.45% NaCl [Dextrose 5%-1/2 NS] 1,000 ml IV ASDIRECTED 11/07/17 12:34 Acetaminophen [Tylenol] 650 mg PO Q4H PRN 11/08/17 13:00 Hemin [Panhematin] 350 mg Water For Injection, Sterile [Sterile Water for Injection] 48 ml IV DAILY@1300 - Plan Plan:: 1. Acute intermittent porphyria flare-up- continue IV fluids, D5 1/2NS at 100 mL , pain control with dilaudid. Continue daily dosing of Hemin, dose per pharmacy. Advance diet as tolerated.
[2017-11-08] MEDS ORDERED: HEMIN IV SCH (09:00)
[2017-11-08] MEDS: STERILE IV SCH (14:26)
[2017-11-08] MEDS: WATER FOR INJECTION IV SCH (14:26)
[2017-11-08] MEDS: HEMIN IV SCH (14:26)
[2017-11-09] MEDS: Ondansetron 4 MG/2 ML SDV IVPUSH PRN ×2 (02:51→12:50)
[2017-11-09] MEDS: HYDROmorphone 1 MG/ML Syringe IVPUSH PRN ×3 (02:52→12:42)
[2017-11-09] MEDS: LORazepam 1 MG Tab PO PRN (04:10)
[2017-11-09] MEDS: Acetaminophen 325 MG Tab PO PRN ×2 (04:10→14:43)
[2017-11-09 05:43] LABS: CHLORIDE,CL 106 mmol/L (98-107); SODIUM,NA 140 mmol/L (136-145)
--- NOTE | 2017-11-09 08:10 | PCM.PN ---
- General Info Date of Service: 11/09/17 Subjective Update: The patient is a 41 year old female who was admitted for flare up of her acute intermittent porphyria. She is still experiencing pain in her back and hips but she thinks she is doing better. She is requiring less pain medication every day. She is now tolerating an oral diet. She denies any chest pain, shortness of breath, nausea or vomiting. She feels like she may be able to go home later today. - Review of Systems General: Reports: No Symptoms HEENT: Reports: No Symptoms Pulmonary: Reports: No Symptoms Cardiovascular: Reports: No Symptoms Gastrointestinal: Reports: No Symptoms Genitourinary: Reports: No Symptoms Musculoskeletal: Reports: Back Pain, Leg Pain Skin: Reports: No Symptoms Neurological: Reports: No Symptoms - Patient Data Vitals - Most Recent: Last Vital Signs Temp 98.2 F 11/09/17 07:59 Pulse 93 11/09/17 07:59 Resp 15 11/09/17 07:59 BP 84/45 L 11/09/17 07:59 Pulse Ox 95 11/09/17 07:59 Weight - Most Recent: 64 kg I&O - Last 24 Hours: Intake & Output 11/08/17 11/09/17 11/09/17 22:59 06:59 14:59 Intake Total 3061 Output Total 1300 Balance 1761 Lab Results Last 24 Hours: Laboratory Results - last 24 hr 11/09/17 11/09/17 Range/Units 05:15 05:15 WBC 7.79 (4.0-11.0) K/uL RBC 4.38 (4.30-5.90) M/uL Hgb 12.7 (12.0-16.0) g/dL Hct 36.3 (36.0-46.0) % MCV 82.9 (80.0-98.0) fL MCH 29.0 (27.0-32.0) pg MCHC 35.0 (31.0-37.0) g/dL RDW Std Deviation 37.8 (28.0-62.0) fl RDW Coeff of Shila 13 (11.0-15.0) % Plt Count 123 L (150-400) K/uL MPV 9.10 (7.40-12.00) fL Neut % (Auto) 66.2 (48.0-80.0) % Lymph % (Auto) 20.8 (16.0-40.0) % [place] % (Auto) 8.6 (0.0-15.0) % Eos % (Auto) 4.0 (0.0-7.0) % Baso % (Auto) 0.4 (0.0-1.5) % Neut # (Auto) 5.2 (1.4-5.7) K/uL Lymph # (Auto) 1.6 (0.6-2.4) K/uL [place] # (Auto) 0.7 (0.0-0.8) K/uL Eos # (Auto) 0.3 (0.0-0.7) K/uL Baso # (Auto) 0.0 (0.0-0.1) K/uL Nucleated RBC % 0.0 /100WBC Nucleated RBCs # 0 K/uL Sodium 140 (136-145) mmol/L Potassium 3.8 (3.5-5.1) mmol/L Chloride 106 (98-107) mmol/L Carbon Dioxide 24.4 (21.0-32.0) mmol/L BUN 7 (7.0-18.0) mg/dL Creatinine 0.8 (0.6-1.0) mg/dL Est Cr Clr Drug Dosing 81.31 mL/min Estimated GFR (MDRD) > 60.0 ml/min Glucose 99 (74-106) mg/dL Calcium 9.0 (8.5-10.1) mg/dL Med Orders - Current: Current Medications Acetaminophen (Tylenol) 650 mg PO Q4H PRN PRN Reason: Pain (Mild 1-3)/fever Last Admin: 11/09/17 04:10 Dose: 650 mg Hydromorphone HCl (Dilaudid) 0.5 mg IVPUSH Q2H PRN PRN Reason: Pain Last Admin: 11/09/17 02:52 Dose: 0.5 mg Dextrose/Sodium Chloride (Dextrose 5%-1/2 Ns) 1,000 mls @ 100 mls/hr IV ASDIRECTED [facility] Last Admin: 11/08/17 23:27 Dose: 100 mls/hr Hemin 350 mg/ Sterile Water 48 mls @ 48 mls/hr IV DAILY@1300 [facility] Last Admin: 11/08/17 14:26 Dose: 48 mls/hr Lorazepam (Ativan) 1 mg PO BID PRN PRN Reason: Anxiety Last Admin: 11/09/17 04:10 Dose: 1 mg Ondansetron HCl (Zofran) 4 mg IVPUSH Q4H PRN PRN Reason: Nausea/Vomiting Last Admin: 11/09/17 02:51 Dose: 4 mg Sodium Chloride (Saline Flush) 10 ml FLUSH ASDIRECTED PRN PRN Reason: Keep Vein Open Sodium Chloride (Saline Flush) 2.5 ml FLUSH ASDIRECTED PRN PRN Reason: Keep Vein Open Discontinued Medications Hemin (Panhematin) 0 mg IV ONETIME ONE Stop: 11/07/17 12:31 Last Admin: 11/07/17 13:02 Dose: Not Given Hemin (Panhematin) 0 mg IV DAILY [facility] Hydromorphone HCl (Dilaudid) 1 mg IVPUSH ONETIME ONE Stop: 11/07/17 02:58 Last Admin: 11/07/17 03:15 Dose: 1 mg Hydromorphone HCl (Dilaudid) 1 mg IVPUSH ONETIME ONE Stop: 11/07/17 03:47 Last Admin: 11/07/17 03:54 Dose: 1 mg Potassium Chloride/Dextrose/Sod Cl (D5 1/2 Ns W/ 20 Meq/L Kcl) 1,000 mls @ 150 mls/hr IV ASDIRECTED [facility] Stop: 11/07/17 09:30 Last Admin: 11/07/17 03:12 Dose: 150 mls/hr Sodium Chloride (Normal Saline) 1,000 mls @ 150 mls/hr IV ASDIRECTED [facility] Last Admin: 11/07/17 10:37 Dose: 150 mls/hr Sodium Chloride 154 meq/ (Dextrose/Water) 1,038.5 mls @ 100 mls/hr IV ASDIRECTED [facility] Sodium Chloride 77 meq/ (Dextrose/Water) 519.25 mls @ 100 mls/hr IV ASDIRECTED [facility] Hemin 350 mg/ Sterile Water 48 mls @ 48 mls/hr IV ONETIME ONE Stop: 11/07/17 13:44 Last Admin: 11/07/17 12:59 Dose: 48 mls/hr Lorazepam (Ativan) 0.5 mg IVPUSH ONETIME ONE Stop: 11/07/17 03:58 Last Admin: 11/07/17 04:01 Dose: 0.5 mg Ondansetron HCl (Zofran) 4 mg IVPUSH ONETIME ONE Stop: 11/07/17 02:58 Last Admin: 11/07/17 03:15 Dose: 4 mg - Exam General: Alert, Oriented, Cooperative Lungs: Clear to Auscultation, Normal Respiratory Effort Cardiovascular: Regular Rate, Regular Rhythm GI/Abdominal Exam: Normal Bowel Sounds, Soft, Tender (mildly tender throughout- improving) Extremities: Normal Inspection, No Pedal Edema Skin: Warm, Dry Neurological: No New Focal Deficit Psy/Mental Status: Alert, Normal Affect, Normal Mood - Problem List Review Problem List Initiated/Reviewed/Updated: Yes - My Orders Last 24 Hours: My Active Orders 11/08/17 09:00 SCD [Sequential Compression Device] [OM.PC] Routine 11/08/17 13:00 Hemin [Panhematin] 350 mg Water For Injection, Sterile [Sterile Water for Injection] 48 ml IV DAILY@1300 - Plan Plan:: 1. Acute intermittent porphyria flare-up- continue IV fluids, D5 1/2NS at 100 mL , pain control with dilaudid. Continue daily dosing of Hemin, dose per pharmacy. Advance diet as tolerated. Possible discharge home today, will reassess patient later in the day.
[2017-11-09] MEDS: Dextrose 5%-0.45% NaCl 1,000 ML IV SCH (09:42)
--- NOTE | 2017-11-09 11:19 | PCM.DCSUM1 ---
Discharge Summary - Hospital Course HPI Initial Comments: Admission Date: 11/07/17 Discharge Date: 11/09/17 Admission Diagnosis: 1. Acute intermittent porphyria flare up with intractable pain Discharge Diagnosis: 1. Acute intermittent porphyria flare up with intractable pain- improved Procedures: None Consults: None Hospital Course: The patient is a 41-year-old female with past medical history of acute intermittent porphyria who presented to the ER with worsening pain in her lower back, upper extremities and neck. She notes the symptoms are consistent with a flareup of her porphyria. She did try to treat herself at home with pain medication and carbo loading. The pain became too much. She had been previously admitted for the same thing is May 2017. In the ER, initial lab work included CBC, CMP and UA without any significant findings. They started her on D5 half-normal saline, gave her Dilaudid and Zofran. The patient was admitted to the medical surgical floor for observation. She was continued on D5 half-normal saline and was given daily doses of Hemin. She received 2 total doses of Hemin. Her pain was controlled with Dilaudid and it improved over the course of her stay. She was able to advance her diet to full meals. On the day of discharge she was feeling better and wanted to go home. Disposition: Home Discharge Condition: vitals stable, tolerating oral diet, ambulating without difficulty, pain symptoms improved Discharge Instructions: high carb diet for flare ups, activity as tolerated, may drive, may shower. Symptoms to report to physician include fever, chills discharge, swelling, erythema, chest pain, shortness of breath, abdominal pain Discharge Medications: continue home meds HYDROmorphone [Dilaudid] 2 mg PO Q4H PRN Ondansetron [Zofran] 4 mg PO Q8H PRN Diclofenac Sodium [Voltaren] 50 mg PO BID LORazepam [Ativan] 1 mg PO BID Midodrine 5 mg PO TID Propranolol [Inderal] 10 mg PO ASDIRECTED Follow-up: Dr. Dang Diagnosis: Stroke: No - Discharge Data Discharge Date: 11/09/17 Discharge Disposition: Home, Self-Care 01 Condition: Stable - Patient Instructions Diet, Other: High carb diet Activity: As Tolerated Driving: May Drive Today Showering/Bathing: May Shower Notify Provider of: Fever, Increased Pain, Swelling and Redness, Drainage, Nausea and/or Vomiting Other/Special Instructions: Additional symptoms include chest pain, shortness of breath, or abdominal pain. - Discharge Plan Home Medications: Home Meds HYDROmorphone [Dilaudid] 2 mg PO Q4H PRN 07/14/13 [History] Ondansetron [Zofran] 4 mg PO Q8H PRN 07/14/13 [History] Diclofenac Sodium [Voltaren] 50 mg PO BID 04/11/17 [History] LORazepam [Ativan] 1 mg PO BID 04/11/17 [History] Midodrine 5 mg PO TID 06/05/17 [History] Propranolol [Inderal] 10 mg PO ASDIRECTED 11/07/17 [History] Forms: ED Department Discharge Referrals: Diego Dang MD [Primary Care Provider] - - Patient Data Vitals - Most Recent: Last Vital Signs Temp 98.2 F 11/09/17 07:59 Pulse 93 11/09/17 07:59 Resp 15 11/09/17 07:59 BP 84/45 L 11/09/17 07:59 Pulse Ox 95 11/09/17 07:59 Weight - Most Recent: 64 kg I&O - Last 24 hours: Intake & Output 11/08/17 11/09/17 11/09/17 22:59 06:59 14:59 Intake Total 3061 Output Total 1300 Balance 1761 Lab Results - Last 24 hrs: Laboratory Results - last 24 hr 11/09/17 11/09/17 Range/Units 05:15 05:15 WBC 7.79 (4.0-11.0) K/uL RBC 4.38 (4.30-5.90) M/uL Hgb 12.7 (12.0-16.0) g/dL Hct 36.3 (36.0-46.0) % MCV 82.9 (80.0-98.0) fL MCH 29.0 (27.0-32.0) pg MCHC 35.0 (31.0-37.0) g/dL RDW Std Deviation 37.8 (28.0-62.0) fl RDW Coeff of Shila 13 (11.0-15.0) % Plt Count 123 L (150-400) K/uL MPV 9.10 (7.40-12.00) fL Neut % (Auto) 66.2 (48.0-80.0) % Lymph % (Auto) 20.8 (16.0-40.0) % [place] % (Auto) 8.6 (0.0-15.0) % Eos % (Auto) 4.0 (0.0-7.0) % Baso % (Auto) 0.4 (0.0-1.5) % Neut # (Auto) 5.2 (1.4-5.7) K/uL Lymph # (Auto) 1.6 (0.6-2.4) K/uL [place] # (Auto) 0.7 (0.0-0.8) K/uL Eos # (Auto) 0.3 (0.0-0.7) K/uL Baso # (Auto) 0.0 (0.0-0.1) K/uL Nucleated RBC % 0.0 /100WBC Nucleated RBCs # 0 K/uL Sodium 140 (136-145) mmol/L Potassium 3.8 (3.5-5.1) mmol/L Chloride 106 (98-107) mmol/L Carbon Dioxide 24.4 (21.0-32.0) mmol/L BUN 7 (7.0-18.0) mg/dL Creatinine 0.8 (0.6-1.0) mg/dL Est Cr Clr Drug Dosing 81.31 mL/min Estimated GFR (MDRD) > 60.0 ml/min Glucose 99 (74-106) mg/dL Calcium 9.0 (8.5-10.1) mg/dL Med Orders - Current: Current Medications Acetaminophen (Tylenol) 650 mg PO Q4H PRN PRN Reason: Pain (Mild 1-3)/fever Last Admin: 11/09/17 04:10 Dose: 650 mg Hydromorphone HCl (Dilaudid) 0.5 mg IVPUSH Q2H PRN PRN Reason: Pain Last Admin: 11/09/17 08:21 Dose: 0.5 mg Dextrose/Sodium Chloride (Dextrose 5%-1/2 Ns) 1,000 mls @ 100 mls/hr IV ASDIRECTED [facility] Last Admin: 11/09/17 09:42 Dose: 100 mls/hr Hemin 350 mg/ Sterile Water 48 mls @ 48 mls/hr IV DAILY@1300 [facility] Last Admin: 11/08/17 14:26 Dose: 48 mls/hr Lorazepam (Ativan) 1 mg PO BID PRN PRN Reason: Anxiety Last Admin: 11/09/17 04:10 Dose: 1 mg Ondansetron HCl (Zofran) 4 mg IVPUSH Q4H PRN PRN Reason: Nausea/Vomiting Last Admin: 11/09/17 02:51 Dose: 4 mg Sodium Chloride (Saline Flush) 10 ml FLUSH ASDIRECTED PRN PRN Reason: Keep Vein Open Sodium Chloride (Saline Flush) 2.5 ml FLUSH ASDIRECTED PRN PRN Reason: Keep Vein Open Discontinued Medications Hemin (Panhematin) 0 mg IV ONETIME ONE Stop: 11/07/17 12:31 Last Admin: 11/07/17 13:02 Dose: Not Given Hemin (Panhematin) 0 mg IV DAILY [facility] Hydromorphone HCl (Dilaudid) 1 mg IVPUSH ONETIME ONE Stop: 11/07/17 02:58 Last Admin: 11/07/17 03:15 Dose: 1 mg Hydromorphone HCl (Dilaudid) 1 mg IVPUSH ONETIME ONE Stop: 11/07/17 03:47 Last Admin: 11/07/17 03:54 Dose: 1 mg Potassium Chloride/Dextrose/Sod Cl (D5 1/2 Ns W/ 20 Meq/L Kcl) 1,000 mls @ 150 mls/hr IV ASDIRECTED [facility] Stop: 11/07/17 09:30 Last Admin: 11/07/17 03:12 Dose: 150 mls/hr Sodium Chloride (Normal Saline) 1,000 mls @ 150 mls/hr IV ASDIRECTED [facility] Last Admin: 11/07/17 10:37 Dose: 150 mls/hr Sodium Chloride 154 meq/ (Dextrose/Water) 1,038.5 mls @ 100 mls/hr IV ASDIRECTED [facility] Sodium Chloride 77 meq/ (Dextrose/Water) 519.25 mls @ 100 mls/hr IV ASDIRECTED [facility] Hemin 350 mg/ Sterile Water 48 mls @ 48 mls/hr IV ONETIME ONE Stop: 11/07/17 13:44 Last Admin: 11/07/17 12:59 Dose: 48 mls/hr Lorazepam (Ativan) 0.5 mg IVPUSH ONETIME ONE Stop: 11/07/17 03:58 Last Admin: 11/07/17 04:01 Dose: 0.5 mg Ondansetron HCl (Zofran) 4 mg IVPUSH ONETIME ONE Stop: 11/07/17 02:58 Last Admin: 11/07/17 03:15 Dose: 4 mg
[2017-11-09] MEDS ORDERED: Heparin Sodium 100 Units/ML 3 ML Syringe FLUSH ONE (12:12)
[2017-11-09] MEDS: STERILE IV SCH (13:41)
[2017-11-09] MEDS: HEMIN IV SCH (13:41)
[2017-11-09] MEDS: WATER FOR INJECTION IV SCH (13:41)
[2017-11-09 15:31] VITALS: BP 100/64
== END 2017-11-09 15:20 | disposition home or self-care (01) | DRG 423 ==
LOC: MW.ED 02:10 → MW.MS 03:51
PROVIDERS: ADMIT Internal Medicine; ATTEND Internal Medicine
DX: E80.21 Acute intermittent (hepatic) porphyria (principal); H91.90 Unspecified hearing loss, unspecified ear; G62.9 Polyneuropathy, unspecified; F41.9 Anxiety disorder, unspecified; M19.90 Unspecified osteoarthritis, unspecified site; D50.9 Iron deficiency anemia, unspecified; Z88.0 Allergy status to penicillin; Z88.2 Allergy status to sulfonamides; Z91.040 Latex allergy status; Z88.1 Allergy status to other antibiotic agents; Z88.8 Allergy status to other drugs, medicaments and biological substances; Z79.899 Other long term (current) drug therapy
CPT/HCPCS: 36415; 80048; 80053; 81001; 85025; 96374; 96375; 96376; 99283; 99284-25; A9270-GY; J1170; J1640; J1642; J2060; J2405; J3480; J7040; J7042

== ENCOUNTER 2018-05-19 20:13 | Emergency (ER) | payer MEDICARE, BC ==
--- NOTE | 2018-05-19 20:43 | EDM.PDOC ---
<Kaya Salinas - Last Filed: 05/19/18 21:35> ED HPI GENERAL MEDICAL PROBLEM - General Chief Complaint: Skin Complaint Stated Complaint: RASH BREAKOUT Time Seen by Provider: 05/19/18 20:36 Source of Information: Reports: Patient History Limitations: Reports: No Limitations - History of Present Illness INITIAL COMMENTS - FREE TEXT/NARRATIVE: HISTORY AND PHYSICAL: History of present illness: Patient is a 42-year-old female with history of acute intermittent porphyria and POTS here with complaint of rash on her upper arms. She states she has not been feeling well the past week, sleeping 12+ hours per day which is typical for her with her chronic illness. She reports she was feeling better a couple of days and and went to her pain provider in [place] and had a steroid injection of the right shoulder which she commonly has done. She states last night she started feeling hot and flushed and when she looked in the mirror she had a red, hot, and itchy rash. She states this resolved but she woke up this morning with the same rash on her upper extremities. She states she is close to her menstrual period and she commonly has a flare of her porphyria during this time. She states she will get hematin through her port but does not feel this is a significant flare requiring a hematin infusion. She denies fevers, chills, nausea, vomiting, abdominal pain, chest pain, SOB, urinary or bowel symptoms. Review of systems: As per history of present illness and below otherwise all systems reviewed and negative. Past medical history: As per history of present illness and as reviewed below otherwise noncontributory. Surgical history: As per history of present illness and as reviewed below otherwise noncontributory. Social history: No reported history of drug or alcohol abuse. Family history: As per history of present illness and as reviewed below otherwise noncontributory. Physical exam: General: Patient sitting comfortably in no acute distress and nontoxic appearing. Patient is tearful on exam. HEENT: Atraumatic, normocephalic, pupils reactive, negative for conjunctival pallor or scleral icterus, mucous membranes moist, throat clear, neck supple, nontender, trachea midline. No meningeal signs. Lungs: Clear to auscultation, breath sounds equal bilaterally, chest nontender. Heart: S1S2, regular, negative for clicks, rubs, or overt murmur. Abdomen: Soft, nondistended, nontender. Negative for masses or hepatosplenomegaly. Negative for costovertebral tenderness. No rigidity, rebound , guarding. Pelvis: Stable nontender. Genitourinary: Deferred. Rectal: Deferred. Extremities: Red, warm macular rash to the upper extremities. Atraumatic, negative for cords or calf pain. Neurovascular unremarkable. Neuro: Awake, alert, oriented. Cranial nerves II through XII unremarkable. Cerebellum unremarkable. Motor and sensory unremarkable throughout. Exam nonfocal. Notes: Diagnostics: CBC, CMP Therapeutics: 1L Normal Saline IV 30mg Toradol IV Prescriptions: Impression: Rash Plan: Signed out to Dr. Jordan at 2200 Definitive disposition and diagnosis as appropriate pending reevaluation and review of above. Treatments HAUL DRIVER: Reports: Other (see below) Other Treatments HAUL DRIVER: dilaudid both arms Pain Score (Numeric/FACES): 4 - Related Data Allergies Allergy/AdvReac Type Severity Reaction Status Date / Time amoxicillin [Amoxicillin] Allergy unknown Verified 05/19/18 20:34 cephalexin [Cephalexin] Allergy unknown Verified 05/19/18 20:34 cephaloridine [Cephaloridine] Allergy unknown Verified 05/19/18 20:34 Cephalosporins Allergy unknown Verified 05/19/18 20:34 ciprofloxacin [From Cipro] Allergy Cannot Verified 05/19/18 20:34 Remember diphenhydramine Allergy Cannot Verified 05/19/18 20:34 [From Benadryl] Remember erythromycin base Allergy unknown Verified 05/19/18 20:34 [Erythromycin Base] latex Allergy Hives Verified 05/19/18 20:34 Latex, Natural Rubber Allergy Cannot Verified 05/19/18 20:34 Remember levofloxacin [From Levaquin] Allergy unknown Verified 05/19/18 20:34 Macrolide Antibiotics Allergy unknown Verified 05/19/18 20:34 Penicillins Allergy unknown Verified 05/19/18 20:34 Sulfa (Sulfonamide Allergy unknown Verified 05/19/18 20:34 Antibiotics) Home Meds: Home Meds HYDROmorphone [Dilaudid] 2 mg PO Q4H PRN 07/14/13 [History] Ondansetron [Zofran] 4 mg PO Q8H PRN 07/14/13 [History] Diclofenac Sodium [Voltaren] 50 mg PO BID PRN 04/11/17 [History] LORazepam [Ativan] 1 mg PO BID 04/11/17 [History] Midodrine 5 mg PO BID 06/05/17 [History] Past Medical History HEENT History: Reports: Other (See Below) Other HEENT History: hearing impairment Cardiovascular History: Reports: Other (See Below) Other Cardiovascular History: POTS Respiratory History: Reports: None Gastrointestinal History: Reports: Other (See Below) Other Gastrointestinal History: gastroparesis Genitourinary History: Reports: None HEEL EDGE INKER MACHINE History: Reports: , Other (See Below) Other HEEL EDGE INKER MACHINE History: tubal ligation Musculoskeletal History: Reports: Back Pain, Chronic, Neck Pain, Chronic, Osteoarthritis, Other (See Below) Other Musculoskeletal History: degenerative disk disease; POTS disease Neurological History: Reports: Migraines, Neuropathy, Peripheral, Other (See Below) Other Neuro History: Fibromyalgia and pain syndrome Psychiatric History: Reports: Anxiety Endocrine/Metabolic History: Reports: Other (See Below) Other Endocrine/Metabolic History: porphyria (2001) Hematologic History: Reports: Anemia, Iron Deficiency, Other (See Below) Other Hematologic History: acute intermitent porphyria Immunologic History: Reports: None Oncologic (Cancer) History: Reports: None Dermatologic History: Reports: Cellulitis - Infectious Disease History Infectious Disease History: Reports: Chicken Pox - Past Surgical History HEENT Surgical History: Reports: None Cardiovascular Surgical History: Reports: None Respiratory Surgical History: Reports: None GI Surgical History: Reports: None Female Surgical History: Reports: Tubal Ligation Endocrine Surgical History: Reports: None Neurological Surgical History: Reports: None Musculoskeletal Surgical History: Reports: None Oncologic Surgical History: Reports: None Social & Family History - Family History Family Medical History: Noncontributory Oncologic: Reports: None - Tobacco Use Smoking Status *Q: Never Smoker - Caffeine Use Caffeine Use: Reports: Coffee - Recreational Drug Use Recreational Drug Use: No ED ROS GENERAL - Review of Systems Review Of Systems: ROS reveals no pertinent complaints other than HPI. ED EXAM, SKIN/RASH Exam: See Below (see dictation) Course - Vital Signs Last Recorded V/S: Last Vital Signs Temp 36.6 C 05/19/18 20:13 Pulse 110 H 05/19/18 20:13 Resp 18 05/19/18 20:13 BP 123/80 05/19/18 20:13 Pulse Ox 97 05/19/18 20:13 - Orders/Labs/Meds Orders: Active Orders 24 hr Category Date Time Status Sodium Chloride 0.9% [Normal Saline] 1,000 ml Med 05/19/18 20:47 Active IV STAT Sodium Chloride 0.9% [Saline Flush] Med 05/19/18 20:47 Active 10 ml FLUSH ASDIRECTED PRN Sodium Chloride 0.9% [Saline Flush] Med 05/19/18 20:47 Active 2.5 ml FLUSH ASDIRECTED PRN Saline Lock Insert [OM.PC] Stat Oth 05/19/18 20:47 Ordered Medication Orders Sodium Chloride (Normal Saline) 1,000 mls @ 999 mls/hr IV STAT ONE Stop: 05/19/18 21:47 Last Admin: 05/19/18 20:57 Dose: 999 mls/hr Sodium Chloride (Saline Flush) 10 ml FLUSH ASDIRECTED PRN PRN Reason: Keep Vein Open Sodium Chloride (Saline Flush) 2.5 ml FLUSH ASDIRECTED PRN PRN Reason: Keep Vein Open Labs: Laboratory Tests 05/19/18 05/19/18 Range/Units 21:00 21:00 WBC 8.32 (4.0-11.0) K/uL RBC 4.71 (4.30-5.90) M/uL Hgb 13.5 (12.0-16.0) g/dL Hct 39.2 (36.0-46.0) % MCV 83.2 (80.0-98.0) fL MCH 28.7 (27.0-32.0) pg MCHC 34.4 (31.0-37.0) g/dL RDW Std Deviation 39.2 (28.0-62.0) fl RDW Coeff of Shila 13 (11.0-15.0) % Plt Count 247 (150-400) K/uL MPV 9.00 (7.40-12.00) fL Neut % (Auto) 68.5 (48.0-80.0) % Lymph % (Auto) 23.8 (16.0-40.0) % Pepin % (Auto) 6.9 (0.0-15.0) % Eos % (Auto) 0.4 (0.0-7.0) % Baso % (Auto) 0.4 (0.0-1.5) % Neut # (Auto) 5.7 (1.4-5.7) K/uL Lymph # (Auto) 2.0 (0.6-2.4) K/uL Pepin # (Auto) 0.6 (0.0-0.8) K/uL Eos # (Auto) 0.0 (0.0-0.7) K/uL Baso # (Auto) 0.0 (0.0-0.1) K/uL Nucleated RBC % 0.0 /100WBC Nucleated RBCs # 0 K/uL Sodium 142 (136-145) mmol/L Potassium 3.8 (3.5-5.1) mmol/L Chloride 107 (98-107) mmol/L Carbon Dioxide 25.4 (21.0-32.0) mmol/L BUN 20 H (7.0-18.0) mg/dL Creatinine 1.1 H (0.6-1.0) mg/dL Est Cr Clr Drug Dosing 55.68 mL/min Estimated GFR (MDRD) 54.7 ml/min Glucose 112 H (74-106) mg/dL Calcium 10.4 H (8.5-10.1) mg/dL Total Bilirubin 0.4 (0.2-1.0) mg/dL AST 15 (15-37) IU/L ALT 21 (14-63) IU/L Alkaline Phosphatase 63 (46-116) U/L Total Protein 7.5 (6.4-8.2) g/dL Albumin 4.0 (3.4-5.0) g/dL Globulin 3.5 (2.6-4.0) g/dL Albumin/Globulin Ratio 1.1 (0.9-1.6) Meds: Medications Generic Name Dose Route Start Last Admin Trade Name Freq PRN Reason Stop Dose Admin Sodium Chloride 1,000 mls @ 999 mls/hr 05/19/18 20:47 05/19/18 20:57 Normal Saline IV 05/19/18 21:47 999 mls/hr STAT ONE Administration Sodium Chloride 10 ml 05/19/18 20:47 Saline Flush FLUSH ASDIRECTED PRN Keep Vein Open Sodium Chloride 2.5 ml 05/19/18 20:47 Saline Flush FLUSH ASDIRECTED PRN Keep Vein Open Discontinued Medications Generic Name Dose Route Start Last Admin Trade Name Alexandrea PRN Reason Stop Dose Admin Ketorolac Tromethamine 30 mg 05/19/18 21:28 05/19/18 21:40 Toradol IVPUSH 05/19/18 21:29 Not Given ONETIME ONE Departure - Departure Disposition: Home, Self-Care 01 Clinical Impression: Paresthesia and pain of extremity, Acute intermittent porphyria - Discharge Information Referrals: PCP,None [Primary Care Provider] - Forms: ED Department Discharge Additional Instructions: The following information is given to patients seen in the emergency department who are being discharged to home. This information is to outline your options for follow-up care. We provide all patients seen in our emergency department with a follow-up referral. The need for follow-up, as well as the timing and circumstances, are variable depending upon the specifics of your emergency department visit. If you don't have a primary care physician on staff, we will provide you with a referral. We always advise you to contact your personal physician following an emergency department visit to inform them of the circumstance of the visit and for follow-up with them and/or the need for any referrals to a consulting specialist. The emergency department will also refer you to a specialist when appropriate. This referral assures that you have the opportunity for followup care with a specialist. All of these measure are taken in an effort to provide you with optimal care, which includes your followup. Under all circumstances we always encourage you to contact your private physician who remains a resource for coordinating your care. When calling for followup care, please make the office aware that this follow-up is from your recent emergency room visit. If for any reason you are refused follow-up, please contact the [facility] emergency department at and asked to speak to the emergency department charge nurse. Continue home medications follow private medical doctor return as needed as discussed <Errol Jordan - Last Filed: 05/19/18 21:44> Course - Vital Signs Text/Narrative:: Patient's emergency department course has been unremarkable CBC and chem were unremarkable patient will be discharged home she is to continue her home medications follow-up with her private medical doctor and return as needed as discussed Departure - Departure Time of Disposition: 21:43 Condition: Good
[2018-05-19] MEDS ORDERED: Sodium Chloride 0.9% 10 ML Syringe FLUSH PRN (20:47)
[2018-05-19] MEDS ORDERED: Sodium Chloride 0.9% 2.5 ML Syringe FLUSH PRN (20:47)
[2018-05-19] MEDS ORDERED: Sodium Chloride 0.9% 1,000 ML IV ONE (20:47)
[2018-05-19] MEDS ORDERED: Ketorolac 30 MG/ML SDV IVPUSH ONE (21:28)
[2018-05-19 22:04] VITALS: BP 121/57
== END 2018-05-19 21:58 | disposition home or self-care (01) ==
LOC: MW.ED 20:13
DX: E80.20 Unspecified porphyria (principal); R20.2 Paresthesia of skin; Z88.1 Allergy status to other antibiotic agents; Z88.8 Allergy status to other drugs, medicaments and biological substances; Z88.2 Allergy status to sulfonamides
CPT/HCPCS: 36415; 80053; 85025; 96360; 99283; J7040

== ENCOUNTER 2018-07-24 04:37 | Emergency (ER) | payer BC ==
--- NOTE | 2018-07-24 04:45 | EDM.PDOC ---
ED HPI GENERAL MEDICAL PROBLEM - General Stated Complaint: RT SHOULDER PAIN Time Seen by Provider: 07/24/18 04:45 Source of Information: Reports: Patient - History of Present Illness INITIAL COMMENTS - FREE TEXT/NARRATIVE: HISTORY AND PHYSICAL: History of present illness: [Patient complains of right upper quadrant pain after eating at [employer] was yesterday, she also has pain radiating to the right shoulder no vomiting chills or sweats Is had similar pain off and on over the last year pain does not radiate to arm neck or jaw she did with shortness of breath or diaphoresis ] Review of systems: As per history of present illness and below otherwise all systems reviewed and negative. Past medical history: As per history of present illness and as reviewed below otherwise noncontributory. Surgical history: As per history of present illness and as reviewed below otherwise noncontributory. Social history: No reported history of drug or alcohol abuse. Family history: As per history of present illness and as reviewed below otherwise noncontributory. Physical exam: HEENT: Atraumatic, normocephalic, pupils reactive, negative for conjunctival pallor or scleral icterus, mucous membranes moist, throat clear, neck supple, nontender, trachea midline. Lungs: Clear to auscultation, breath sounds equal bilaterally, chest nontender. Heart: S1S2, regular, negative for clicks, rubs, or JVD. Abdomen: Soft, nondistended, nontender. Negative for masses or hepatosplenomegaly. Negative for costovertebral tenderness. Pelvis: Stable nontender. Genitourinary: Deferred. Rectal: Deferred. Extremities: Atraumatic, negative for cords or calf pain. Neurovascular unremarkable. Neuro: Awake, alert, oriented. Cranial nerves II through XII unremarkable. Cerebellum unremarkable. Motor and sensory unremarkable throughout. Exam nonfocal. Diagnostics: [CBC CMP troponin lipase UA hCG] Therapeutics: [Aspirin 324 mg chewable Proton X Normal saline ] Toradol patient refused Impression: Abdominal pain Shoulder pain Isaacs history of baseline deftive disposition and diagnosis as appropriate pending reevaluation and review of above. Right Back Pain Score (Numeric/FACES): 10 - Related Data Allergies Allergy/AdvReac Type Severity Reaction Status Date / Time amoxicillin [Amoxicillin] Allergy unknown Verified 07/24/18 05:00 cephalexin [Cephalexin] Allergy unknown Verified 07/24/18 05:00 cephaloridine [Cephaloridine] Allergy unknown Verified 07/24/18 05:00 Cephalosporins Allergy unknown Verified 07/24/18 05:00 ciprofloxacin [From Cipro] Allergy Cannot Verified 07/24/18 05:00 Remember diphenhydramine Allergy Cannot Verified 07/24/18 05:00 [From Benadryl] Remember erythromycin base Allergy unknown Verified 07/24/18 05:00 [Erythromycin Base] latex Allergy Hives Verified 07/24/18 05:00 Latex, Natural Rubber Allergy Cannot Verified 07/24/18 05:00 Remember levofloxacin [From Levaquin] Allergy unknown Verified 07/24/18 05:00 Macrolide Antibiotics Allergy unknown Verified 07/24/18 05:00 Penicillins Allergy unknown Verified 07/24/18 05:00 Sulfa (Sulfonamide Allergy unknown Verified 07/24/18 05:00 Antibiotics) Home Meds: Home Meds HYDROmorphone [Dilaudid] 2 mg PO Q4H PRN 07/14/13 [History] Ondansetron [Zofran] 4 mg PO Q8H PRN 07/14/13 [History] Diclofenac Sodium [Voltaren] 50 mg PO BID PRN 04/11/17 [History] LORazepam [Ativan] 1 mg PO BID 04/11/17 [History] Midodrine 5 mg PO BID 06/05/17 [History] Past Medical History HEENT History: Reports: Other (See Below) Other HEENT History: hearing impairment Cardiovascular History: Reports: Other (See Below) Other Cardiovascular History: POTS Respiratory History: Reports: None Gastrointestinal History: Reports: Other (See Below) Other Gastrointestinal History: gastroparesis Genitourinary History: Reports: None 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: , Other (See Below) Other RUBBER AND PLASTICS WORKER History: tubal ligation Musculoskeletal History: Reports: Back Pain, Chronic, Neck Pain, Chronic, Osteoarthritis, Other (See Below) Other Musculoskeletal History: degenerative disk disease; POTS disease Neurological History: Reports: Migraines, Neuropathy, Peripheral, Other (See Below) Other Neuro History: Fibromyalgia and pain syndrome Psychiatric History: Reports: Anxiety Endocrine/Metabolic History: Reports: Other (See Below) Other Endocrine/Metabolic History: porphyria (2001) Hematologic History: Reports: Anemia, Iron Deficiency, Other (See Below) Other Hematologic History: acute intermitent porphyria Immunologic History: Reports: None Oncologic (Cancer) History: Reports: None Dermatologic History: Reports: Cellulitis - Infectious Disease History Infectious Disease History: Reports: Chicken Pox - Past Surgical History HEENT Surgical History: Reports: None Cardiovascular Surgical History: Reports: None Respiratory Surgical History: Reports: None GI Surgical History: Reports: None Female Surgical History: Reports: Tubal Ligation Endocrine Surgical History: Reports: None Neurological Surgical History: Reports: None Musculoskeletal Surgical History: Reports: None Oncologic Surgical History: Reports: None Social & Family History - Family History Family Medical History: Noncontributory Oncologic: Reports: None - Caffeine Use Caffeine Use: Reports: Coffee ED ROS GENERAL - Review of Systems Review Of Systems: See Below ED EXAM, GENERAL - Physical Exam Exam: See Below Course - Vital Signs Last Recorded V/S: Last Vital Signs Temp 98.8 F 07/24/18 05:01 Pulse 127 H 07/24/18 05:01 Resp 18 07/24/18 05:01 BP 129/75 07/24/18 05:01 Pulse Ox 98 07/24/18 05:01 - Orders/Labs/Meds Orders: Active Orders 24 hr Category Date Time Status EKG Documentation Completion [RC] STAT Care 07/24/18 04:44 Active Pantoprazole [ProTONIX IV] 80 mg Med 07/24/18 05:27 Active Sodium Chloride 0.9% [Normal Saline] 20 ml IVPUSH NOW Medication Orders Pantoprazole Sodium 80 mg/ (Sodium Chloride) 20 mls @ 10 mls/hr IVPUSH NOW STA Stop: 07/24/18 07:26 Last Admin: 07/24/18 05:40 Dose: Not Given Labs: Laboratory Tests 07/24/18 07/24/18 07/24/18 Range/Units 04:50 04:50 06:05 WBC 9.04 (4.0-11.0) K/uL RBC 4.81 (4.30-5.90) M/uL Hgb 14.1 (12.0-16.0) g/dL Hct 41.1 (36.0-46.0) % MCV 85.4 (80.0-98.0) fL MCH 29.3 (27.0-32.0) pg MCHC 34.3 (31.0-37.0) g/dL RDW Std Deviation 40.3 (28.0-62.0) fl RDW Coeff of Shila 13 (11.0-15.0) % Plt Count 264 (150-400) K/uL MPV 9.20 (7.40-12.00) fL Neut % (Auto) 53.3 (48.0-80.0) % Lymph % (Auto) 37.8 (16.0-40.0) % Russell % (Auto) 6.6 (0.0-15.0) % Eos % (Auto) 1.7 (0.0-7.0) % Baso % (Auto) 0.6 (0.0-1.5) % Neut # (Auto) 4.8 (1.4-5.7) K/uL Lymph # (Auto) 3.4 H (0.6-2.4) K/uL Russell # (Auto) 0.6 (0.0-0.8) K/uL Eos # (Auto) 0.2 (0.0-0.7) K/uL Baso # (Auto) 0.1 (0.0-0.1) K/uL Nucleated RBC % 0.0 /100WBC Nucleated RBCs # 0 K/uL Sodium 140 (136-145) mmol/L Potassium 3.8 (3.5-5.1) mmol/L Chloride 105 (98-107) mmol/L Carbon Dioxide 22.8 (21.0-32.0) mmol/L BUN 18 (7.0-18.0) mg/dL Creatinine 1.0 (0.6-1.0) mg/dL Est Cr Clr Drug Dosing 61.24 mL/min Estimated GFR (MDRD) > 60.0 ml/min Glucose 110 H (74-106) mg/dL Calcium 9.9 (8.5-10.1) mg/dL Total Bilirubin 0.3 (0.2-1.0) mg/dL AST 22 (15-37) IU/L ALT 26 (14-63) IU/L Alkaline Phosphatase 61 (46-116) U/L Troponin I < 0.050 (0.000-0.056) ng/mL Total Protein 7.1 (6.4-8.2) g/dL Albumin 3.8 (3.4-5.0) g/dL Globulin 3.3 (2.6-4.0) g/dL Albumin/Globulin Ratio 1.2 (0.9-1.6) Lipase 276 (73-393) U/L Urine Color YELLOW Urine Appearance CLEAR Urine pH 5.5 (5.0-8.0) Ur Specific Mclean >= 1.030 (1.001-1.035) Urine Protein NEGATIVE (NEGATIVE) mg/dL Urine Glucose (UA) NEGATIVE (NEGATIVE) mg/dL Urine Ketones NEGATIVE (NEGATIVE) mg/dL Urine Occult Blood NEGATIVE (NEGATIVE) Urine Nitrite NEGATIVE (NEGATIVE) Urine Bilirubin SMALL H (NEGATIVE) Urine Ictotest NEGATIVE Urine Urobilinogen 0.2 (<2.0) EU/dL Ur Leukocyte Esterase NEGATIVE (NEGATIVE) Urine HCG, Qual (NEGATIVE) 07/24/18 Range/Units 06:05 WBC (4.0-11.0) K/uL RBC (4.30-5.90) M/uL Hgb (12.0-16.0) g/dL Hct (36.0-46.0) % MCV (80.0-98.0) fL MCH (27.0-32.0) pg MCHC (31.0-37.0) g/dL RDW Std Deviation (28.0-62.0) fl RDW Coeff of Shila (11.0-15.0) % Plt Count (150-400) K/uL MPV (7.40-12.00) fL Neut % (Auto) (48.0-80.0) % Lymph % (Auto) (16.0-40.0) % Russell % (Auto) (0.0-15.0) % Eos % (Auto) (0.0-7.0) % Baso % (Auto) (0.0-1.5) % Neut # (Auto) (1.4-5.7) K/uL Lymph # (Auto) (0.6-2.4) K/uL Russell # (Auto) (0.0-0.8) K/uL Eos # (Auto) (0.0-0.7) K/uL Baso # (Auto) (0.0-0.1) K/uL Nucleated RBC % /100WBC Nucleated RBCs # K/uL Sodium (136-145) mmol/L Potassium (3.5-5.1) mmol/L Chloride (98-107) mmol/L Carbon Dioxide (21.0-32.0) mmol/L BUN (7.0-18.0) mg/dL Creatinine (0.6-1.0) mg/dL Est Cr Clr Drug Dosing mL/min Estimated GFR (MDRD) ml/min Glucose (74-106) mg/dL Calcium (8.5-10.1) mg/dL Total Bilirubin (0.2-1.0) mg/dL AST (15-37) IU/L ALT (14-63) IU/L Alkaline Phosphatase (46-116) U/L Troponin I (0.000-0.056) ng/mL Total Protein (6.4-8.2) g/dL Albumin (3.4-5.0) g/dL Globulin (2.6-4.0) g/dL Albumin/Globulin Ratio (0.9-1.6) Lipase (73-393) U/L Urine Color Urine Appearance Urine pH (5.0-8.0) Ur Specific Mclean (1.001-1.035) Urine Protein (NEGATIVE) mg/dL Urine Glucose (UA) (NEGATIVE) mg/dL Urine Ketones (NEGATIVE) mg/dL Urine Occult Blood (NEGATIVE) Urine Nitrite (NEGATIVE) Urine Bilirubin (NEGATIVE) Urine Ictotest Urine Urobilinogen (<2.0) EU/dL Ur Leukocyte Esterase (NEGATIVE) Urine HCG, Qual NEGATIVE (NEGATIVE) Meds: Medications Generic Name Dose Route Start Last Admin Trade Name Freq PRN Reason Stop Dose Admin Pantoprazole Sodium 80 mg/ 20 mls @ 10 mls/hr 07/24/18 05:27 07/24/18 05:40 Sodium Chloride IVPUSH 07/24/18 07:26 Not Given NOW STA Discontinued Medications Generic Name Dose Route Start Last Admin Trade Name Freq PRN Reason Stop Dose Admin Aspirin 324 mg 07/24/18 04:46 07/24/18 05:01 Aspirin PO 07/24/18 04:47 324 mg ONETIME ONE Administration Pantoprazole Sodium 80 mg/ 100 mls @ 10 mls/hr 07/24/18 04:46 07/24/18 05:11 Sodium Chloride IVPUSH 07/24/18 14:45 Not Given BOLUS ONE Sodium Chloride Confirm 07/24/18 04:55 07/24/18 05:19 Normal Saline Administered 07/24/18 04:56 Not Given Dose 20 mls @ as directed .ROUTE .STK-MED ONE Pantoprazole Sodium 80 mg/ 100 mls @ 10 mls/hr 07/24/18 05:15 07/24/18 05:41 Sodium Chloride IVPUSH 07/24/18 15:14 10 mls/hr DAILY STA Administration Ketorolac Tromethamine 30 mg 07/24/18 04:57 07/24/18 05:09 Toradol IVPUSH 07/24/18 04:58 30 mg ONETIME ONE Administration Ondansetron HCl 8 mg 07/24/18 04:57 07/24/18 05:05 Zofran IVPUSH 07/24/18 04:58 8 mg ONETIME ONE Administration Pantoprazole Sodium Confirm 07/24/18 04:55 07/24/18 05:19 Protonix Iv Administered 07/24/18 04:56 Not Given Dose 80 mg .ROUTE .STK-MED ONE Departure - Departure Time of Disposition: 06:33 Disposition: Home, Self-Care 01 Condition: Good Clinical Impression: Abdominal pain Right shoulder pain Qualifiers: Chronicity: chronic Qualified Code(s): M25.511 - Pain in right shoulder - Discharge Information Referrals: PCP,None [Primary Care Provider] - Additional Instructions: [place] diet Medication as prescribed Return if symptoms persist or worsen Follow-up with general surgery for consideration of HIDA scan [facility] - General Surgery [address], [address] [place] [address] The following information is given to patients seen in the emergency department who are being discharged to home. This information is to outline your options for follow-up care. We provide all patients seen in our emergency department with a follow-up referral. The need for follow-up, as well as the timing and circumstances, are variable depending upon the specifics of your emergency department visit. If you don't have a primary care physician on staff, we will provide you with a referral. We always advise you to contact your personal physician following an emergency department visit to inform them of the circumstance of the visit and for follow-up with them and/or the need for any referrals to a consulting specialist. The emergency department will also refer you to a specialist when appropriate. This referral assures that you have the opportunity for follow-up care with a specialist. All of these measure are taken in an effort to provide you with optimal care, which includes your follow-up. Under all circumstances we always encourage you to contact your private physician who remains a resource for coordinating your care. When calling for follow-up care, please make the office aware that this follow-up is from your recent emergency room visit. If for any reason you are refused follow-up, please contact the [facility] emergency department at and asked to speak to the emergency department charge nurse. - My Orders Last 24 Hours: My Active Orders 07/24/18 04:44 EKG Documentation Completion [RC] STAT 07/24/18 05:27 Pantoprazole [ProTONIX IV] 80 mg Sodium Chloride 0.9% [Normal Saline] 20 ml IVPUSH NOW - Assessment/Plan Last 24 Hours: My Active Orders 07/24/18 04:44 EKG Documentation Completion [RC] STAT 07/24/18 05:27 Pantoprazole [ProTONIX IV] 80 mg Sodium Chloride 0.9% [Normal Saline] 20 ml IVPUSH NOW
[2018-07-24] MEDS ORDERED: Aspirin 81 MG Tab.Chew PO ONE (04:46)
[2018-07-24] MEDS ORDERED: Pantoprazole 80 MG in Sodium Chloride 0.9% 100 ML IVPUSH ONE (04:46)
[2018-07-24] MEDS ORDERED: Sodium Chloride 0.9% 20 ML ONE (04:55)
[2018-07-24] MEDS ORDERED: Pantoprazole 40 MG Vial ONE (04:55)
[2018-07-24] MEDS ORDERED: Ketorolac 30 MG/ML SDV IVPUSH ONE (04:57)
[2018-07-24] MEDS ORDERED: Ondansetron 4 MG/2 ML SDV IVPUSH ONE (04:57)
[2018-07-24] MEDS: Pantoprazole 80 MG in Sodium Chloride 0.9% 100 ML IVPUSH STA ×3 (05:16→05:41)
[2018-07-24 05:20] LABS: CHLORIDE,CL 105 mmol/L (98-107); SODIUM,NA 140 mmol/L (136-145)
[2018-07-24] MEDS ORDERED: Pantoprazole 80 MG in Sodium Chloride 0.9% 20 ML IVPUSH STA (05:27)
--- NOTE | 2018-07-24 06:26 | CR ---
Indication: Chest pain Technique: Chest 1 view Comparison: July 25, 2017 Findings/Impression: Cardiovascular and mediastinum: Heart size and vasculature are normal in caliber and appearance. Mediastinum is within normal limits. Right-sided Port-A-Cath tip terminates at the level of the cavoatrial junction. Lungs and pleural space: Lungs are clear. No sign of infiltrate or mass. No sign of pleural effusion. No pneumothorax. Bones and soft tissues: No significant findings. Dictated by Ksenia King MD @ Jul 24 2018 6:25AM Signed by Dr. Ksenia King @ Jul 24 2018 6:25AM
--- NOTE | 2018-07-24 06:29 | US ---
INDICATION: Several month history of right upper quadrant pain TECHNIQUE: Ultrasound abdomen limited. Sonographic images of the right upper quadrant were obtained using lopez-scale and color Doppler images. COMPARISON: None FINDINGS: Liver: Normal in size and echotexture. No masses. No intrahepatic biliary dilatation. Gallbladder: No stones or sludge. Normal wall thickness. No pericholecystic fluid. Common bile duct: 3 mm. Pancreas: Normal. Right kidney: 9.1 x 4.8 x 4.6 cm. Normal echotexture and cortex. No masses, stones, or hydronephrosis. IMPRESSION: Unremarkable right upper quadrant ultrasound. Dictated by Ksenia King MD @ Jul 24 2018 6:27AM Signed by Dr. Ksenia King @ Jul 24 2018 6:28AM
[2018-07-24 06:53] VITALS: BP 103/65
== END 2018-07-24 06:50 | disposition home or self-care (01) ==
LOC: MW.ED 04:37
DX: M25.511 Pain in right shoulder (principal); R10.11 Right upper quadrant pain; M19.90 Unspecified osteoarthritis, unspecified site; Z98.51 Tubal ligation status; Z88.1 Allergy status to other antibiotic agents; Z88.0 Allergy status to penicillin; Z88.2 Allergy status to sulfonamides; Z91.040 Latex allergy status
CPT/HCPCS: 36415; 71045; 76705; 80053; 81003; 81025; 83690; 84484; 85025; 93005; 96374; 99284; A9270; C9113; J2405; J7030; 99283; J1885

== ENCOUNTER 2018-08-17 09:47 | Day surgery (SDC) | payer BC, MEDICARE ==
[~2018-08-17 09:47] MED LIST: Lactated Ringers 1,000 ML IV SCH
[2018-08-17] MEDS ORDERED: Midazolam 1 MG/ML 2 ML SDV ONE (10:23)
[2018-08-17] MEDS ORDERED: Propofol 200 MG/20 ML SDV ONE ×3 (10:23→11:29)
[2018-08-17] MEDS ORDERED: Glycopyrrolate 0.2 MG/ML SDV ONE (10:23)
--- NOTE | 2018-08-17 10:37 | PCM.PREANE ---
Preanesthetic Assessment - Anesthesia/Transfusion/Family Hx Anesthesia History: Prior Anesthesia Without Reaction Family History of Anesthesia Reaction: No Transfusion History: No Prior Transfusion(s) - Review of Systems General: No Symptoms Pulmonary: No Symptoms Cardiovascular: Other (chronic orthostatic hptn (POTS syndrome)) - Physical Assessment NPO Status Date: 08/16/18 Height: 5 ft 4 in Weight: 62.596 kg ASA Class: 3 Mental Status: Alert & Oriented x3 Airway Class: Mallampati = 2 Dentition: Reports: Normal Dentition ROM/Head Extension: Full Lungs: Clear to Auscultation, Normal Respiratory Effort Cardiovascular: Regular Rate, Regular Rhythm - Allergies Allergies/Adverse Reactions: Allergies Allergy/AdvReac Type Severity Reaction Status Date / Time amoxicillin [Amoxicillin] Allergy unknown Verified 07/24/18 05:00 cephalexin [Cephalexin] Allergy unknown Verified 07/24/18 05:00 cephaloridine [Cephaloridine] Allergy Cannot Verified 08/11/18 11:16 Remember Cephalosporins Allergy unknown Verified 08/11/18 11:16 ciprofloxacin [From Cipro] Allergy Cannot Verified 08/11/18 11:16 Remember diphenhydramine Allergy Shaking Verified 08/11/18 11:16 [From Benadryl] erythromycin base Allergy unknown Verified 08/11/18 11:16 [Erythromycin Base] latex Allergy Hives Verified 08/11/18 11:16 Latex, Natural Rubber Allergy Cannot Verified 08/11/18 11:16 Remember levofloxacin [From Levaquin] Allergy unknown Verified 08/11/18 11:16 Macrolide Antibiotics Allergy unknown Verified 08/11/18 11:16 Penicillins Allergy Cannot Verified 08/11/18 11:16 Remember Sulfa (Sulfonamide Allergy unknown Verified 08/11/18 11:16 Antibiotics) - Blood Blood Available: No - Anesthesia Plan Pre-Op Medication Ordered: None - Acknowledgements Anesthesia Type Planned: General Anesthesia Pt an Appropriate Candidate for the Planned Anesthesia: Yes Alternatives and Risks of Anesthesia Discussed w Pt/Guardian: Yes Pt/Guardian Understands and Agrees with Anesthesia Plan: Yes Additional Comments: anes prob list: acute intermittant hepatic poryphuria, orthostatic hypotension, maite danlos syndrome, migraine, IBS, multiple allergies, chronic use of opioids and benzodiazepines PLAN: TIVA with safe agents for pts with porphuria: propofol, ativan, fentanyl, phenylephrine PreAnesthesia Questionnaire HEENT History: Reports: Other (See Below) Other HEENT History: wears glasses Cardiovascular History: Reports: Blood Clots/VTE/DVT, Other (See Below) Other Cardiovascular History: POTS (postural orthostatic tachycardia syndrome), hx blood clot to leg & blood clot to arm following a PICC line placement Respiratory History: Reports: None Gastrointestinal History: Reports: Other (See Below) Other Gastrointestinal History: intermittent gastroparesis, acute intermittent hepatic porphyria Genitourinary History: Reports: None 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: , Other (See Below) Other OB/BYN History: tubal ligation Musculoskeletal History: Reports: Fibromyalgia, Osteoarthritis, Other (See Below ) Other Musculoskeletal History: degenerative disk disease; POTS disease Neurological History: Reports: Migraines, Neuropathy, Peripheral, Other (See Below) Other Neuro History: states "possible mini stroke or bells palsy in the past" Psychiatric History: Reports: Anxiety, Depression Endocrine/Metabolic History: Reports: Other (See Below) Other Endocrine/Metabolic History: porphyria (2001) Hematologic History: Reports: Anemia, Iron Deficiency, Other (See Below) Other Hematologic History: acute intermitent porphyria Immunologic History: Reports: None Oncologic (Cancer) History: Reports: None Dermatologic History: Reports: Other (See Below) Other Dermatologic History: EDS (Maite-Danlos syndrome) - Infectious Disease History Infectious Disease History: Reports: Chicken Pox - Past Surgical History Head Surgeries/Procedures: Reports: None HEENT Surgical History: Reports: None Cardiovascular Surgical History: Reports: None Respiratory Surgical History: Reports: None GI Surgical History: Reports: None Female Surgical History: Reports: Tubal Ligation Endocrine Surgical History: Reports: None Neurological Surgical History: Reports: None Musculoskeletal Surgical History: Reports: None Oncologic Surgical History: Reports: None Dermatological Surgical History: Reports: Skin Biopsy, Other (See Below) - SUBSTANCE USE Smoking Status *Q: Never Smoker Recreational Drug Use History: No - HOME MEDS Home Medications: Home Meds HYDROmorphone [Dilaudid] 2 mg PO Q4H PRN 07/14/13 [History] Ondansetron [Zofran] 4 mg PO Q8H PRN 07/14/13 [History] Diclofenac Sodium [Voltaren] 50 mg PO BID PRN 04/11/17 [History] LORazepam [Ativan] 1 mg PO ASDIRECTED PRN 04/11/17 [History] Hemin [Panhematin] 1 infusion IV ASDIRECTED 08/11/18 [History] Midodrine 5 mg PO QID PRN 08/11/18 [History] Polyethylene Glycol 3350 1 dose PO DAILY 08/11/18 [History] - CURRENT (IN HOUSE) MEDS Current Meds: Current Medications Lactated Ringer's (Ringers, Lactated) 1,000 mls @ 125 mls/hr IV ASDIRECTED ISMAEL Discontinued Medications Glycopyrrolate (Robinul) Confirm Administered Dose 0.2 mg .ROUTE .STK-MED ONE Stop: 08/17/18 10:24 Midazolam HCl (Versed 1 Mg/Ml) Confirm Administered Dose 2 mg .ROUTE .STK-MED ONE Stop: 08/17/18 10:24 Propofol (Diprivan 20 Ml) Confirm Administered Dose 200 mg .ROUTE .STK-MED ONE Stop: 08/17/18 10:24
[2018-08-17] MEDS ORDERED: LORazepam 2 MG/ML SDV IVPUSH ONE (10:47)
[2018-08-17] MEDS ORDERED: fentaNYL 100 MCG/2 ML SDV ONE (10:48)
[2018-08-17] MEDS ORDERED: Phenylephrine/Normal Saline 100 MCG/ML 10 ML Syringe ONE (11:18)
[2018-08-17] MEDS ORDERED: Dextrose 5%-0.9% NaCl 1,000 ML IV SCH (12:30)
--- NOTE | 2018-08-17 12:57 | PCM.POSTAN ---
POST ANESTHESIA ASSESSMENT - MENTAL STATUS Mental Status: Alert, Oriented - RESPIRATORY Respiratory Status: Respiratory Rate WNL, Airway Patent, O2 Saturation Stable - CARDIOVASCULAR CV Status: Pulse Rate WNL, Blood Pressure Stable - GASTROINTESTINAL GI Status: No Symptoms - POST OP HYDRATION Hydration Status: Adequate & Stable
--- NOTE | 2018-08-17 13:00 | PCM.OPNOTE ---
- General Post-Op/Procedure Note Date of Surgery/Procedure: 08/17/18 Operative Procedure(s): egd w bx. colonoscopy w bx Findings: see [id number] Pre Op Diagnosis: abd pain and change in bowel habits Post-Op Diagnosis: Same Anesthesia Technique: Moderate Sedation Primary Surgeon: Mehrdad Tran Pathology: egd bx colon random bx Complications: None Condition: Good Free Text/Narrative:: Intake & Output 08/16/18 08/17/18 08/17/18 22:59 06:59 14:59 Intake Total 600 Balance 600
--- NOTE | 2018-08-17 14:13 | OR ---
SURGEON: Mehrdad Tran MD DATE OF PROCEDURE: 08/17/2018 PREOPERATIVE DIAGNOSES: 1. Abdominal pain. 2. Change in bowel habits. PROCEDURE PERFORMED: 1. Esophagogastroduodenoscopy with biopsy. 2. Colonoscopy with biopsy. DESCRIPTION OF PROCEDURE: EGD: The patient was taken to the endoscopy room, and with the SITE SUPERVISOR, Diprivan was administered. A well-lubricated EGD scope was gently inserted through the oropharynx, down the esophagus, passing through the gastroesophageal junction, into the stomach. The mucosa was examined upon the passage. Any etiology will be noted. Once in the stomach, we continued to advance to the distal antrum, passed through the pylorus into the second portion of the duodenum. Again, the mucosa was examined for any abnormality and etiology. The scope was then retrieved back to the stomach and then retroflexed to look at the fundus of the stomach. If a biopsy was indicated, we will biopsy the antrum, body, and gastroesophageal junction. The air will be sucked out while the scope is retrieved to reduce the patient's discomfort. The patient tolerated the procedure well. There were no intraoperative complications. Dr. Tran was present through the whole procedure. Prior to surgery, a time-out had been called, the patient identified, procedure identified and antibiotic administered. Colonoscopy with biopsy: The patient was taken to the endoscopy room. A time out was called, patient identified, and procedure identified. Diprivan was then administrated. Patient went from awake to sleep, hearing doctor talking or door closing is normal. Perineum inspection and digital examination were then performed. A well-lubricated colonoscope was gently inserted through the rectum, advanced past the rectosigmoid junction, the descending colon, splenic flexure, transverse colon, hepatic flexure, ascending colon, arrived to the cecum. Cecum was identified as dictated in the finding. Then the scope was carefully withdrawn while attention was paid to the mucosal surface for any abnormality. Air will be sucked out during the scope withdrawal. At the rectum, retroflexed to examine any rectal diseases, fistula or hemorrhoids. During mucosal examination, biopsy was performed. Patient tolerated procedure well. There were no intraoperative complications, and Dr. Tran was present throughout the whole procedure. FINDINGS: EGD findings: 1. The patient is easily sedated with SITE SUPERVISOR and Diprivan. The patient is soundly snoring. 2. Oropharynx and proximal esophagus free of disease, infection, inflammation, or stricture. Distal esophagus at GE junction at 40 shows mild salmon- colored change consistent with mild acid reflux. Stomach rugae is normal in appearance, and antrum is a little bit inflamed. Duodenum was grossly normal. Scope retrieved back to the stomach, retroflexed to look at the fundus of stomach. The patient does not have hiatal hernia. Biopsy done at antrum, body, GE junction at 40, and sucked out the gas while scope pulling out. Colonoscopy findings: 1. The patient is easily sedated with SITE SUPERVISOR and Diprivan. The patient is soundly snoring. 2. Bowel prep is left to be desirable with quite a lot of small fragment of stool compromised study. This is not a continuously solid stool, but stool speck every now and then and really compromised study. Colon is rather redundant at the sigmoid, requiring several maneuvers including pressure in abdomen and turning pt to her back still the cecum can only appreciate from a distant. Ileocecal fold was observed and one-to-one indentation was observed. Light emittance and appendiceal orifice are not observed. Mucosa examined upon scope pulling out with a lot of irrigation. The patient does not have mass growth, diverticulosis, polyp, inflammation, stricture, ulceration, AV malformation, none of those. Random biopsy was done for abdominal pain as well as history of IBS. The patient has mild external hemorrhoids and mild internal hemorrhoids. The patient would benefit from repeat colonoscopy in 10 years from today. Of note, the patient has required a lot of narcotic to get sedation and was taking narcotic on a chronic basis and have more than 30 to 40 allergies, that usually translate to postop pain difficult to manage. JAH / LISA /[id number] ROSELINE
[2018-08-17 14:38] VITALS: BP 103/49
== END 2018-08-17 12:45 | disposition home or self-care (01) ==
LOC: MW.SDS 09:47
PROVIDERS: ATTEND Surgery
DX: K58.0 Irritable bowel syndrome with diarrhea (principal); K29.30 Chronic superficial gastritis without bleeding; K29.50 Unspecified chronic gastritis without bleeding; K20.9 Esophagitis, unspecified; B96.81 Helicobacter pylori [H. pylori] as the cause of diseases classified elsewhere; K64.8 Other hemorrhoids; K64.4 Residual hemorrhoidal skin tags; K63.89 Other specified diseases of intestine; Q43.8 Other specified congenital malformations of intestine; F41.9 Anxiety disorder, unspecified; G43.009 Migraine without aura, not intractable, without status migrainosus; M19.90 Unspecified osteoarthritis, unspecified site; Z88.0 Allergy status to penicillin; Z88.1 Allergy status to other antibiotic agents; Z88.2 Allergy status to sulfonamides; Z88.8 Allergy status to other drugs, medicaments and biological substances; Z91.040 Latex allergy status; Z79.899 Other long term (current) drug therapy
CPT/HCPCS: 43239; 45380; 81025; J2060; J2370; J2704; J3010; J3490; J7042; J7120; J2250

== ENCOUNTER 2018-12-23 06:40 | Day surgery (SDC) | payer BC, MEDICARE ==
[~2018-12-23 06:40] MED LIST changes: +Clindamycin Phosphate in D5W 600 MG in Premix Bag 50 BAG IV ONE
--- NOTE | 2018-12-23 07:12 | PCM.PREANE ---
Preanesthetic Assessment - Anesthesia/Transfusion/Family Hx Anesthesia History: Prior Anesthesia Without Reaction Other Type of Anesthesia Reaction Comment: states she is hard to sedate Family History of Anesthesia Reaction: No Transfusion History: No Prior Transfusion(s) Intubation History: Unknown - Review of Systems General: No Symptoms Pulmonary: No Symptoms Cardiovascular: No Symptoms Gastrointestinal: No Symptoms Neurological: No Symptoms Other: Reports: None - Physical Assessment Vital Signs: Last Vital Signs Temp 36.2 C 12/23/18 06:57 Pulse 105 H 12/23/18 06:57 Resp 14 12/23/18 06:57 BP 116/78 12/23/18 06:57 Pulse Ox 97 12/23/18 06:57 Height: 5 ft 4 in Weight: 64.41 kg ASA Class: 2 Mental Status: Alert & Oriented x3 Airway Class: Mallampati = 2 Dentition: Reports: Normal Dentition, Granby(s) (multiple upper front) Thyro-Mental Finger Breadths: 3 Mouth Opening Finger Breadths: 2 (very small mouth) ROM/Head Extension: Full Lungs: Clear to Auscultation, Normal Respiratory Effort Cardiovascular: Regular Rate, Regular Rhythm - Allergies Allergies/Adverse Reactions: Allergies Allergy/AdvReac Type Severity Reaction Status Date / Time amoxicillin [Amoxicillin] Allergy unknown Verified 12/22/18 09:51 cephalexin [Cephalexin] Allergy unknown Verified 12/22/18 09:51 cephaloridine [Cephaloridine] Allergy Cannot Verified 12/22/18 09:51 Remember Cephalosporins Allergy unknown Verified 12/22/18 09:51 ciprofloxacin [From Cipro] Allergy Cannot Verified 12/22/18 09:51 Remember diphenhydramine Allergy Anaphylactic Verified 12/22/18 09:51 [From Benadryl] Shock erythromycin base Allergy unknown Verified 12/22/18 09:51 [Erythromycin Base] latex Allergy Hives Verified 12/22/18 09:51 Latex, Natural Rubber Allergy Cannot Verified 12/22/18 09:51 Remember levofloxacin [From Levaquin] Allergy unknown Verified 12/22/18 09:51 Macrolide Antibiotics Allergy unknown Verified 12/22/18 09:51 Penicillins Allergy Cannot Verified 12/22/18 09:51 Remember Sulfa (Sulfonamide Allergy unknown Verified 12/22/18 09:51 Antibiotics) - Blood Blood Available: No - Anesthesia Plan Pre-Op Medication Ordered: None - Acknowledgements Anesthesia Type Planned: General Anesthesia Pt an Appropriate Candidate for the Planned Anesthesia: Yes Alternatives and Risks of Anesthesia Discussed w Pt/Guardian: Yes Pt/Guardian Understands and Agrees with Anesthesia Plan: Yes PreAnesthesia Questionnaire HEENT History: Reports: Other (See Below) Other HEENT History: wears glasses Cardiovascular History: Reports: Blood Clots/VTE/DVT, Other (See Below) Other Cardiovascular History: POTS (postural orthostatic tachycardia syndrome), hx blood clot to leg & blood clot to arm following a PICC line placement Respiratory History: Reports: None, Other (See Below) (mild SOB with attacks of porphyria) Gastrointestinal History: Reports: Other (See Below) Other Gastrointestinal History: intermittent gastroparesis, acute intermittent hepatic porphyria Genitourinary History: Reports: None 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: , Other (See Below) Other OB/BYN History: tubal ligation Musculoskeletal History: Reports: Fibromyalgia, Osteoarthritis, Other (See Below ) Other Musculoskeletal History: degenerative disk disease; POTS disease Neurological History: Reports: Migraines, Neuropathy, Peripheral, Other (See Below) Other Neuro History: states "possible mini stroke or bells palsy in the past" Psychiatric History: Reports: Anxiety, Depression Endocrine/Metabolic History: Reports: Other (See Below) Other Endocrine/Metabolic History: porphyria (2001) Hematologic History: Reports: Anemia, Iron Deficiency, Other (See Below) Other Hematologic History: acute intermitent porphyria Immunologic History: Reports: None Oncologic (Cancer) History: Reports: None Dermatologic History: Reports: Other (See Below) Other Dermatologic History: EDS (Maite-Danlos syndrome) - Infectious Disease History Infectious Disease History: Reports: Chicken Pox - Past Surgical History Head Surgeries/Procedures: Reports: None HEENT Surgical History: Reports: None Cardiovascular Surgical History: Reports: None Respiratory Surgical History: Reports: None GI Surgical History: Reports: Colonoscopy, EGD Female Surgical History: Reports: Tubal Ligation Endocrine Surgical History: Reports: None Neurological Surgical History: Reports: None Musculoskeletal Surgical History: Reports: None Oncologic Surgical History: Reports: None Dermatological Surgical History: Reports: Skin Biopsy, Other (See Below) - SUBSTANCE USE Smoking Status *Q: Never Smoker Recreational Drug Type: Reports: Marijuana/Hashish - HOME MEDS Home Medications: Home Meds Ondansetron [Zofran] 4 mg PO Q8H PRN 05/16/14 [History] LORazepam [Ativan] 0.5 mg PO TID PRN 04/11/17 [History] Hemin [Panhematin] 1 infusion IV ASDIRECTED PRN 08/11/18 [History] Cannabis Oil 1 applic TOP BID PRN 12/22/18 [History] Dextrose Infusion 1 infusion IV ASDIRECTED PRN 12/22/18 [History] - CURRENT (IN HOUSE) MEDS Current Meds: Current Medications Lactated Ringer's (Ringers, Lactated) 1,000 mls @ 125 mls/hr IV ASDIRECTED ISMAEL Last Admin: 12/23/18 07:03 Dose: 125 mls/hr Discontinued Medications Clindamycin Phosphate 600 mg/ (Premix) 50 mls @ 100 mls/hr IV ONETIME ONE Stop: 12/23/18 05:29
[2018-12-23] MEDS ORDERED: Ondansetron 4 MG/2 ML SDV IVPUSH ONE (07:13)
[2018-12-23] MEDS ORDERED: Ondansetron 4 MG/2 ML SDV ONE (07:13)
[2018-12-23] MEDS ORDERED: fentaNYL 100 MCG/2 ML SDV ONE (07:13)
[2018-12-23] MEDS ORDERED: Propofol 200 MG/20 ML SDV ONE (07:13)
[2018-12-23] MEDS ORDERED: Dexamethasone 4 MG/ML 5 ML MDV ONE (07:13)
[2018-12-23] MEDS ORDERED: Scopolamine 1.5 MG Transdermal Patch TRDERM PRN (07:13)
[2018-12-23] MEDS ORDERED: Iopamidol 408 MG/ML 50 ML SDV ONE (07:17)
[2018-12-23] MEDS ORDERED: Bupivacaine 25%/EPINEPHrine/PF 30 ML ONE (07:17)
[2018-12-23] MEDS ORDERED: Clindamycin Phosphate in D5W 600 MG in Premix Bag 1 BAG IV SCH ×2 (07:30)
[2018-12-23] MEDS ORDERED: HYDROmorphone 2 MG Tab PO PRN (07:55)
[2018-12-23] MEDS ORDERED: Rocuronium 100 MG/10 ML Syringe ONE (08:26)
[2018-12-23] MEDS ORDERED: Glycopyrrolate 0.2 MG/ML SDV ONE (08:26)
[2018-12-23] MEDS ORDERED: Neostigmine Methylsulfate 1 MG/ML 5 ML Syringe ONE (08:26)
[2018-12-23] MEDS ORDERED: HYDROmorphone 2 MG/ML Syringe ONE (08:44)
--- NOTE | 2018-12-23 09:21 | PCM.OPNOTE ---
- General Post-Op/Procedure Note Operative Procedure(s): lap ana luisa Findings: gb was thin walled, but yellow and green and severe adherence to surround organs suggested a chronic cholecystitis; [id number] Pre Op Diagnosis: biliary dyskinesia Post-Op Diagnosis: Same Anesthesia Technique: General ET Tube Primary Surgeon: Mehrdad Tran Complications: None Condition: Good
[2018-12-23] MEDS ORDERED: Albuterol 0.083% 2.5 MG/3 ML Neb Soln NEB PRN (09:22)
[2018-12-23] MEDS ORDERED: EPINEPHrine 1:10,000 1 MG/10 ML Syringe IVPUSH PRN (09:22)
[2018-12-23] MEDS ORDERED: Naloxone 0.4 MG/ML Syringe IVPUSH PRN (09:22)
[2018-12-23] MEDS ORDERED: 50% Dextrose in Water 50 ML Syringe IVPUSH PRN (09:22)
[2018-12-23] MEDS ORDERED: Atropine 0.1 MG/ML 10 ML Syringe IVPUSH PRN ×2 (09:22)
[2018-12-23] MEDS: fentaNYL 100 MCG/2 ML SDV IVPUSH PRN ×4 (09:31→09:55)
--- NOTE | 2018-12-23 09:59 | OR ---
SURGEON: Mehrdad Tran MD DATE OF PROCEDURE: 12/23/2018 PREOPERATIVE DIAGNOSIS: Biliary dyskinesia. POSTOPERATIVE DIAGNOSIS: Chronic cholecystitis. PROCEDURE PROPOSED: Laparoscopic cholecystectomy. PROCEDURE PERFORMED: Laparoscopic cholecystectomy. PRIMARY SURGEON: Mehrdad Tran MD. COMPLICATIONS: None. FINDINGS: Gallbladder thin-walled, but yellow and green, and with severe adherence to surrounding structure consistent with chronic cholecystitis. PROCEDURE NOTE: The patient was taken to the operating room and placed in the supine position. After the intubation of general endotracheal anesthesia, the patient's abdomen was prepped and draped in the usual sterile fashion. Using [employer], a 12 mm trocar was placed supraumbilically and then followed with pneumoperitoneum. A 5 mm trocar was placed in the epigastrium and two 5 mm trocars placed in the right upper quadrant. The placement of the last three trocars was done under direct video supervision. Upon gaining entrance to the abdominal cavity, an extensive examination was then performed. The gallbladder was located and identified and retracted to the dome of the liver at the triangle of Calot. The cystic duct was clipped three more times and then using the endoscopic clip, was transected with placement of the endoscopic clip and transection was performed with care, ensuring the posterior prong of the instruments were clearly visualized prior to exercising the procedure. The gallbladder was dissected using electrocautery out of the liver bed and then removed using endoscopic bag through the umbilical site. The gallbladder was removed en bloc and there was no bile spillage and this was then followed with extensive irrigation until the bile was clear from blood and bile. The trocars were then removed under direct video supervision. The 12 mm umbilical site was then closed with deep stitches using 0 Vicryl followed with proximal stitches using 3-0 Vicryl and Dermabond. The other three trocar sites were closed with 3-0 Vicryl followed with approximation of skin with Dermabond. The patient was then awakened and extubated and transferred to the recovery room in hemodynamically stable condition. At the conclusion of the surgery, before closing the abdominal wound, instrument count and sponge count were done and were correct. The patient tolerated the procedure well and there were no intraoperative complications. Dr. Tran was present through the whole procedure. Just before surgery, a timeout was called. The patient was identified and procedure identified and procedure started. Intraoperative findings as dictated above. As always, thank you for the kind referral. JAH / LISA /[id number]
--- NOTE | 2018-12-23 10:13 | PCM.POSTAN ---
POST ANESTHESIA ASSESSMENT - MENTAL STATUS Mental Status: Alert, Oriented - VITAL SIGNS Vital Signs: Last Vital Signs Temp 37.4 C 12/23/18 09:21 Pulse 120 H 12/23/18 10:06 Resp 10 L 12/23/18 10:06 BP 112/54 L 12/23/18 10:06 Pulse Ox 95 12/23/18 10:06 - RESPIRATORY Respiratory Status: Respiratory Rate WNL, Airway Patent, O2 Saturation Stable - CARDIOVASCULAR CV Status: Pulse Rate WNL, Blood Pressure Stable - GASTROINTESTINAL GI Status: No Symptoms - PAIN Pain Score: 4 - POST OP HYDRATION Hydration Status: Adequate & Stable - OBSERVATIONS Free Text/Narrative:: no anesthesia problems
--- NOTE | 2018-12-23 12:03 | PCM48HPAN ---
Post Anesthesia Note - EVALUATION WITHIN 48HRS OF ANESTHETIC Vital Signs in Normal Range: Yes Patient Participated in Evaluation: Yes Respiratory Function Stable: Yes Airway Patent: Yes Cardiovascular Function Stable: Yes Hydration Status Stable: Yes Pain Control Satisfactory: Yes Nausea and Vomiting Control Satisfactory: Yes Mental Status Recovered: Yes Vital Signs: Last Vital Signs Temp 37.4 C 12/23/18 09:21 Pulse 120 H 12/23/18 10:06 Resp 10 L 12/23/18 10:06 BP 112/54 L 12/23/18 10:06 Pulse Ox 95 12/23/18 10:06 - COMMENTS/OBSERVATIONS Free Text/Narrative:: no anesthesia problems
[2018-12-23 12:42] VITALS: BP 104/64; PULSE 100
== END 2018-12-23 12:29 | disposition home or self-care (01) ==
LOC: MW.SDS 06:40
PROVIDERS: ATTEND Surgery
DX: K81.1 Chronic cholecystitis (principal); F41.9 Anxiety disorder, unspecified; G43.009 Migraine without aura, not intractable, without status migrainosus; M19.90 Unspecified osteoarthritis, unspecified site; Z88.0 Allergy status to penicillin; Z88.1 Allergy status to other antibiotic agents; Z88.2 Allergy status to sulfonamides; Z88.8 Allergy status to other drugs, medicaments and biological substances; Z91.040 Latex allergy status; Z79.899 Other long term (current) drug therapy
CPT/HCPCS: 47562; 81025; A9270; J0330; J1100; J1170; J2001; J2405; J2704; J3010; J3490; J7120; S0077; Q9966

== ENCOUNTER 2019-01-02 23:53 | Emergency (ER) | payer BC ==
[2019-01-03] MEDS ORDERED: Sodium Chloride 0.9% 2.5 ML Syringe FLUSH PRN (00:25)
[2019-01-03] MEDS ORDERED: HYDROmorphone 1 MG/ML Syringe IVPUSH ONE (00:25)
[2019-01-03] MEDS ORDERED: Sodium Chloride 0.9% 1,000 ML IV ONE (00:25)
[2019-01-03] MEDS ORDERED: Sodium Chloride 0.9% 10 ML Syringe FLUSH PRN (00:25)
[2019-01-03] MEDS ORDERED: Ondansetron 4 MG/2 ML SDV IVPUSH ONE (00:25)
--- NOTE | 2019-01-03 00:30 | EDM.PDOC ---
ED HPI GENERAL MEDICAL PROBLEM - General Chief Complaint: Abdominal Pain Stated Complaint: LIVER PAIN ABD PAIN RT SIDE UPPER RIB PAIN Time Seen by Provider: 01/03/19 00:17 - History of Present Illness INITIAL COMMENTS - FREE TEXT/NARRATIVE: HISTORY AND PHYSICAL: History of present illness: The patient is a 43-year-old female who is well known to this provider and has a history of acute intermittent porphyria and was been in the ED in the past for episodes of flareups of that pain and who underwent a laparoscopic cholecystectomy here at our hospital on December 23; she is presenting tonight with persistent right upper quadrant pain that radiates to her back and left upper quadrant that is been ongoing since postop day 3. The patient said she did see her provider, Dr. Tran in the clinic on postop day 3 because the pain had worsened and he said to continue with her pain medication and to monitor it and come to the ED if things change. The patient was given oral Dilaudid for her pain management postoperatively and she does have a history of being on that in the past but has not taken it recently for her chronic pain issues and has been using medical marijuana. She said that with the surgical pain she was prescribed that and has been using it as directed. She said that when she saw her surgeon on postop day 3 she was very uncomfortable but that the pain seemed to improve over the next several days and she ran out of her prescription 1-2 days ago. She says the pain has intensified and is not associated with nausea or vomiting fevers chills chest pain or shortness of breath. Since the surgery she has had diarrhea stools but they are not black or bloody. The patient is concerned as she's not sure if this is a postop complication or problem or if is related to her porphyria. She says this is not classic of her porphyria pain and in my experience with this patient again it is not classic for her. Her pain crisis usually manifests more in her extremities and is much more diffuse rather than being localized in one specific area as her pain is this evening. Patient has a history of a bilateral tubal ligation. The patient says she did have outpatient labs done postoperatively when she saw her surgeon in the clinic and she was told that her liver enzymes were slightly elevated and she is concerned about that as well. Review of systems: As per history of present illness and below otherwise all systems reviewed and negative. Past medical history: As per history of present illness and as reviewed below otherwise noncontributory. Surgical history: As per history of present illness and as reviewed below otherwise noncontributory. Social history: No reported history of drug or alcohol abuse. Family history: As per history of present illness and as reviewed below otherwise noncontributory. Physical exam: General: Well-developed well-nourished female who is nontoxic and moves easily in the ED and does not appear to be in terrible distress. Vital signs are noted by me. HEENT: Atraumatic, normocephalic, pupils reactive, negative for conjunctival pallor or scleral icterus, mucous membranes moist, throat clear, neck supple, nontender, trachea midline. Lungs: Clear to auscultation, breath sounds equal bilaterally, chest nontender. Heart: S1S2, regular, negative for clicks, rubs, or JVD. Abdomen: Soft, nondistended, tenderness in the right upper quadrant epigastric area and left upper quadrant which seems a bit out of proportion to my exam but there is no rebound or guarding and bowel sounds are normoactive and slightly hyperactive. There is no distention or tympany. Negative for masses or hepatosplenomegaly. Negative for costovertebral tenderness. Pelvis: Stable nontender. Genitourinary: Deferred. Rectal: Deferred. Extremities: Atraumatic, negative for cords or calf pain. Neurovascular unremarkable. Neuro: Awake, alert, oriented. Cranial nerves II through XII unremarkable. Cerebellum unremarkable. Motor and sensory unremarkable throughout. Exam nonfocal. Diagnostics: CBC CMP amylase lipase UA with reflex CT scan of the abdomen and pelvis Therapeutics: IV fluids Zofran Dilaudid Today's labs are compared to those performed on as an outpatient by her surgeon. The LFTs have normalized including bilirubin and are much improved. Patient said her pain was a 6/10 on arrival and now after Dilaudid is a 5/10. I will discuss this case with the surgeon on-call including the CT scan results. 0220: Case was discussed with Dr. Claudio the surgeon on-call and she would like to see the patient in her clinic on Wednesday afternoon. The patient was told to call in the morning for a follow-up time and Dr. Claudio will review the CT scan as well as the labs and plan follow-up accordingly. The patient has Zofran she can use for home and I will renew her pain medication for the next 2 days until she is followed up. The patient says she overall does feel better and she is comfortable with this care plan and she does not feel like her pain is from her porphyria which is much more diffuse and more in her extremities. Advised on reasons to return to the ED Impression: Postoperative pain, history of acute intermittent porphyria stable Definitive disposition and diagnosis as appropriate pending reevaluation and review of above. RUQ abdomen Pain Score (Numeric/FACES): 6 - Related Data Allergies Allergy/AdvReac Type Severity Reaction Status Date / Time amoxicillin [Amoxicillin] Allergy unknown Verified 01/03/19 00:20 cephalexin [Cephalexin] Allergy unknown Verified 01/03/19 00:20 cephaloridine [Cephaloridine] Allergy Cannot Verified 01/03/19 00:20 Remember Cephalosporins Allergy unknown Verified 01/03/19 00:20 ciprofloxacin [From Cipro] Allergy Cannot Verified 01/03/19 00:20 Remember diphenhydramine Allergy Anaphylactic Verified 01/03/19 00:20 [From Benadryl] Shock erythromycin base Allergy unknown Verified 01/03/19 00:20 [Erythromycin Base] latex Allergy Hives Verified 01/03/19 00:20 Latex, Natural Rubber Allergy Cannot Verified 01/03/19 00:20 Remember levofloxacin [From Levaquin] Allergy unknown Verified 01/03/19 00:20 Macrolide Antibiotics Allergy unknown Verified 01/03/19 00:20 Penicillins Allergy Cannot Verified 01/03/19 00:20 Remember Sulfa (Sulfonamide Allergy unknown Verified 01/03/19 00:20 Antibiotics) Home Meds: Home Meds Ondansetron [Zofran] 4 mg PO Q8H PRN 07/14/13 [History] LORazepam [Ativan] 1 mg PO TID PRN 04/11/17 [History] Cannabis Oil 1 applic TOP BID PRN 12/22/18 [History] Past Medical History HEENT History: Reports: Impaired Vision, Other (See Below) Other HEENT History: wears glasses Cardiovascular History: Reports: Blood Clots/VTE/DVT, Other (See Below) Other Cardiovascular History: POTS (postural orthostatic tachycardia syndrome), hx blood clot to leg & blood clot to arm following a PICC line placement Respiratory History: Reports: None, Other (See Below) (mild SOB with attacks of porphyria) Gastrointestinal History: Reports: Other (See Below) Other Gastrointestinal History: intermittent gastroparesis, acute intermittent hepatic porphyria Genitourinary History: Reports: None RN CLINICAL REVIEW History: Reports: Other RN CLINICAL REVIEW History: tubal ligation Musculoskeletal History: Reports: Fibromyalgia, Osteoarthritis, Other (See Below ) Other Musculoskeletal History: degenerative disk disease; POTS disease Neurological History: Reports: Migraines, Neuropathy, Peripheral, Other (See Below) Other Neuro History: states "possible mini stroke or bells palsy in the past" Psychiatric History: Reports: Anxiety, Depression Endocrine/Metabolic History: Reports: Other (See Below) Other Endocrine/Metabolic History: porphyria (2001) Hematologic History: Reports: Anemia, Iron Deficiency, Other (See Below) Other Hematologic History: acute intermitent porphyria Immunologic History: Reports: None Oncologic (Cancer) History: Reports: None Dermatologic History: Reports: Other (See Below) Other Dermatologic History: EDS (Maite-Danlos syndrome) - Infectious Disease History Infectious Disease History: Reports: Chicken Pox - Past Surgical History Head Surgeries/Procedures: Reports: None HEENT Surgical History: Reports: None Cardiovascular Surgical History: Reports: None Respiratory Surgical History: Reports: None GI Surgical History: Reports: Cholecystectomy, Colonoscopy, EGD Female Surgical History: Reports: Tubal Ligation Endocrine Surgical History: Reports: None Neurological Surgical History: Reports: None Musculoskeletal Surgical History: Reports: None Oncologic Surgical History: Reports: None Dermatological Surgical History: Reports: Skin Biopsy, Other (See Below) Social & Family History - Family History Family Medical History: Noncontributory Oncologic: Reports: None - Tobacco Use Smoking Status *Q: Never Smoker - Caffeine Use Caffeine Use: Reports: Coffee - Recreational Drug Use Recreational Drug Use: Yes Drug Use in Last 12 Months: Yes Recreational Drug Type: Reports: Marijuana/Hashish Recreational Drug Use Frequency: Daily ED ROS GENERAL - Review of Systems Review Of Systems: ROS reveals no pertinent complaints other than HPI. ED EXAM, GENERAL - Physical Exam Exam: See Below (See dictation) Course - Vital Signs Last Recorded V/S: Last Vital Signs Temp 36 C 01/03/19 02:15 Pulse 92 01/03/19 02:15 Resp 18 01/03/19 02:15 BP 95/55 L 01/03/19 02:15 Pulse Ox 98 01/03/19 02:15 - Orders/Labs/Meds Orders: Active Orders 24 hr Category Date Time Status Sodium Chloride 0.9% [Saline Flush] Med 01/03/19 00:25 Active 10 ml FLUSH ASDIRECTED PRN Sodium Chloride 0.9% [Saline Flush] Med 01/03/19 00:25 Active 2.5 ml FLUSH ASDIRECTED PRN Saline Lock Insert [OM.PC] Stat Oth 01/03/19 00:24 Ordered Medication Orders Sodium Chloride (Saline Flush) 10 ml FLUSH ASDIRECTED PRN PRN Reason: Keep Vein Open Sodium Chloride (Saline Flush) 2.5 ml FLUSH ASDIRECTED PRN PRN Reason: Keep Vein Open Labs: Laboratory Tests 01/03/19 01/03/19 01/03/19 Range/Units 00:20 00:40 00:40 WBC 7.08 (4.0-11.0) K/uL RBC 4.67 (4.30-5.90) M/uL Hgb 13.8 (12.0-16.0) g/dL Hct 39.4 (36.0-46.0) % MCV 84.4 (80.0-98.0) fL MCH 29.6 (27.0-32.0) pg MCHC 35.0 (31.0-37.0) g/dL RDW Std Deviation 37.0 (28.0-62.0) fl RDW Coeff of Shila 12 (11.0-15.0) % Plt Count 304 (150-400) K/uL MPV 9.20 (7.40-12.00) fL Neut % (Auto) 47.7 L (48.0-80.0) % Lymph % (Auto) 38.7 (16.0-40.0) % Bartholomew % (Auto) 8.3 (0.0-15.0) % Eos % (Auto) 4.7 (0.0-7.0) % Baso % (Auto) 0.6 (0.0-1.5) % Neut # (Auto) 3.4 (1.4-5.7) K/uL Lymph # (Auto) 2.7 H (0.6-2.4) K/uL Bartholomew # (Auto) 0.6 (0.0-0.8) K/uL Eos # (Auto) 0.3 (0.0-0.7) K/uL Baso # (Auto) 0.0 (0.0-0.1) K/uL Sodium 143 (136-145) mmol/L Potassium 4.0 (3.5-5.1) mmol/L Chloride 108 H (98-107) mmol/L Carbon Dioxide 27.1 (21.0-32.0) mmol/L BUN 19 H (7.0-18.0) mg/dL Creatinine 1.0 (0.6-1.0) mg/dL Est Cr Clr Drug Dosing 60.62 mL/min Estimated GFR (MDRD) > 60.0 ml/min Glucose 80 (74-106) mg/dL Calcium 10.1 (8.5-10.1) mg/dL Total Bilirubin 0.4 (0.2-1.0) mg/dL AST 32 (15-37) IU/L ALT 82 H (14-63) IU/L Alkaline Phosphatase 166 H (46-116) U/L Total Protein 7.7 (6.4-8.2) g/dL Albumin 3.8 (3.4-5.0) g/dL Globulin 3.9 (2.6-4.0) g/dL Albumin/Globulin Ratio 1.0 (0.9-1.6) Amylase 81 (25-115) U/L Lipase 280 (73-393) U/L Urine Color YELLOW Urine Appearance CLEAR Urine pH 6.0 (5.0-8.0) Ur Specific Warren >= 1.030 (1.001-1.035) Urine Protein NEGATIVE (NEGATIVE) mg/dL Urine Glucose (UA) NEGATIVE (NEGATIVE) mg/dL Urine Ketones NEGATIVE (NEGATIVE) mg/dL Urine Occult Blood NEGATIVE (NEGATIVE) Urine Nitrite NEGATIVE (NEGATIVE) Urine Bilirubin SMALL H (NEGATIVE) Urine Ictotest NEGATIVE Urine Urobilinogen 0.2 (<2.0) EU/dL Ur Leukocyte Esterase NEGATIVE (NEGATIVE) Meds: Medications Generic Name Dose Route Start Last Admin Trade Name Freq PRN Reason Stop Dose Admin Sodium Chloride 10 ml 01/03/19 00:25 Saline Flush FLUSH ASDIRECTED PRN Keep Vein Open Sodium Chloride 2.5 ml 01/03/19 00:25 Saline Flush FLUSH ASDIRECTED PRN Keep Vein Open Discontinued Medications Generic Name Dose Route Start Last Admin Trade Name Alexandrea PRN Reason Stop Dose Admin Hydromorphone HCl 1 mg 01/03/19 00:25 01/03/19 00:47 Dilaudid IVPUSH 01/03/19 00:26 1 mg ONETIME ONE Administration Sodium Chloride 1,000 mls @ 999 mls/hr 01/03/19 00:25 01/03/19 00:47 Normal Saline IV 01/03/19 01:25 999 mls/hr STAT ONE Administration Iopamidol 100 ml 01/03/19 01:16 01/03/19 01:28 Isovue-370 (76%) IVPUSH 01/03/19 01:17 100 ml ONETIME ONE Administration Ondansetron HCl 4 mg 01/03/19 00:25 01/03/19 00:47 Zofran IVPUSH 01/03/19 00:26 4 mg ONETIME ONE Administration Departure - Departure Time of Disposition: 02:34 Disposition: Home, Self-Care 01 Condition: Good Clinical Impression: Abdominal pain, Postoperative pain - Discharge Information Referrals: Diego Dang MD [Primary Care Provider] - Forms: ED Department Discharge Additional Instructions: The following information is given to patients seen in the emergency department who are being discharged to home. This information is to outline your options for follow-up care. We provide all patients seen in our emergency department with a follow-up referral. The need for follow-up, as well as the timing and circumstances, are variable depending upon the specifics of your emergency department visit. If you don't have a primary care physician on staff, we will provide you with a referral. We always advise you to contact your personal physician following an emergency department visit to inform them of the circumstance of the visit and for follow-up with them and/or the need for any referrals to a consulting specialist. The emergency department will also refer you to a specialist when appropriate. This referral assures that you have the opportunity for followup care with a specialist. All of these measure are taken in an effort to provide you with optimal care, which includes your followup. Under all circumstances we always encourage you to contact your private physician who remains a resource for coordinating your care. When calling for followup care, please make the office aware that this follow-up is from your recent emergency room visit. If for any reason you are refused follow-up, please contact the [facility] emergency department at and ask to speak to the emergency department charge nurse. [facility] Special[facility]-General Surgery Professional Building [address] [place] [id number] Please use Zofran you have for nausea and vomiting and push hydration and eat a low-fat high carb diet. Take small bites of food and more frequently. Fill your prescription for pain medication and use as needed. These call the clinic later this morning and schedule a follow-up appointment with Dr. Claudio, as Dr. Tran is out of town. She would like to see you on Wednesday during her clinic and please make sure to tell the bender helper specifically that she was requesting you to be there. Return to ER as needed and as discussed - My Orders Last 24 Hours: My Active Orders 01/03/19 00:24 Saline Lock Insert [OM.PC] Stat 01/03/19 00:25 Sodium Chloride 0.9% [Saline Flush] 10 ml FLUSH ASDIRECTED PRN Sodium Chloride 0.9% [Saline Flush] 2.5 ml FLUSH ASDIRECTED PRN - Assessment/Plan Last 24 Hours: My Active Orders 01/03/19 00:24 Saline Lock Insert [OM.PC] Stat 01/03/19 00:25 Sodium Chloride 0.9% [Saline Flush] 10 ml FLUSH ASDIRECTED PRN Sodium Chloride 0.9% [Saline Flush] 2.5 ml FLUSH ASDIRECTED PRN
[2019-01-03 01:14] LABS: BLOOD UREA NITROGEN,BUN 19 mg/dL (7.0-18.0); CARBON DIOXIDE,CO2 27.1 mmol/L (21.0-32.0); CHLORIDE,CL 108 mmol/L (98-107); GLUCOSE RANDOM 80 mg/dL (74-106); LIPASE 280 U/L (73-393); SODIUM,NA 143 mmol/L (136-145)
[2019-01-03] MEDS ORDERED: Iopamidol 755 Mg/ML 100 ML Bottle IVPUSH ONE (01:16)
--- NOTE | 2019-01-03 02:12 | CT ---
INDICATION: Abdominal pain, 10 days post cholecystectomy TECHNIQUE: CT abdomen and pelvis acquired with IV contrast. 100 mL of Isovue 370 administered. COMPARISON: 12/19/2013 FINDINGS: Lower chest: Subsegmental atelectasis. Liver: Unremarkable. Spleen: Borderline splenomegaly. Pancreas: Pancreatic divisum is not excluded. Gallbladder and bile ducts: Status post cholecystectomy. Edema and small fluid in the gallbladder fossa with a curvilinear area of enhancement surrounding foci of near fat attenuation. Intra and extrahepatic biliary dilatation, greater than expected for a post cholecystectomy state. Adrenal glands: Unremarkable. Kidneys: No hydronephrosis. Small right renal low-density lesions could represent cysts. GI tract: Unremarkable. Appendix is normal. Vascular structures: Unremarkable. Lymph nodes: A 1.6 x 1.2 cm soft tissue density lateral to the proximal duodenum on image 50 could represent ectopic pancreatic tissue or a nonspecific lymph node. Miscellaneous: No free air. A small fat containing paraumbilical hernia. Pelvic Organs: Small ill-defined foci of enhancement of the uterine fundus could be physiologic or may represent small myomatous changes. A tampon in the vagina. A contracted bladder. A 1.4 cm dominant right ovarian follicle. A small peripherally enhancing focus in the left adnexa suggestive of an involuting physiologic follicle. Bones: Unremarkable for age. IMPRESSION: Status post cholecystectomy with small fluid and edema in the gallbladder fossa, as well as a curvilinear area of enhancement surrounding an area of near fat attenuation which could represent focal infection or an area of fat necrosis. A well-defined drainable regional fluid collection is not seen on the current study. Intra and extrahepatic biliary dilatation, greater than expected for a postcholecystectomy state. Dictated by Eliceo Blanco MD @ 01/03/2019 2:11:05 AM Please note that all CT scans at this facility use dose modulation, iterative reconstruction, and/or weight-based dosing when appropriate to reduce radiation dose to as low as reasonably achievable. Dictated by: Eliceo Blanco MD @ 01/03/2019 02:11:09 (Electronically Signed)
[2019-01-03 02:46] VITALS: BP 111/56; PULSE 82
== END 2019-01-03 02:45 | disposition home or self-care (01) ==
LOC: MW.ED 23:53
DX: G89.18 Other acute postprocedural pain (principal); R10.11 Right upper quadrant pain; F41.9 Anxiety disorder, unspecified; Z90.49 Acquired absence of other specified parts of digestive tract; Z98.51 Tubal ligation status; Z88.0 Allergy status to penicillin; Z88.1 Allergy status to other antibiotic agents; Z88.8 Allergy status to other drugs, medicaments and biological substances; Z88.2 Allergy status to sulfonamides; Z86.2 Personal history of diseases of the blood and blood-forming organs and certain disorders involving the immune mechanism; Z79.899 Other long term (current) drug therapy
CPT/HCPCS: 36415; 74177; 80053; 81003; 82150; 83690; 85025; 96361; 96374; 96375; 99284; J1170; J2405; J7040; Q9967

== ENCOUNTER 2019-03-03 07:17 | Day surgery (SDC) | payer BC, MEDICARE ==
[~2019-03-03 07:17] MED LIST changes: -Clindamycin Phosphate in D5W 600 MG in Premix Bag 50 BAG IV ONE; +Glycopyrrolate 0.2 MG/ML SDV ONE; +Lidocaine 2% 5 ML SDV ONE; +Midazolam 1 MG/ML 2 ML SDV ONE; +Propofol 200 MG/20 ML SDV ONE
[2019-03-03] MEDS ORDERED: Sodium Chloride 0.9% 10 ML SDV IV STA (07:44)
--- NOTE | 2019-03-03 07:53 | PCM.PREANE ---
Preanesthetic Assessment - Anesthesia/Transfusion/Family Hx Anesthesia History: Prior Anesthesia Without Reaction Other Type of Anesthesia Reaction Comment: states she is hard to sedate Family History of Anesthesia Reaction: No Transfusion History: No Prior Transfusion(s) Intubation History: Unknown - Review of Systems General: Other (current tachycardia and flank pain) Pulmonary: No Symptoms Cardiovascular: Palpitations Gastrointestinal: Abdominal Pain Neurological: No Symptoms Other: Reports: None - Physical Assessment NPO Status Date: 03/02/19 Height: 5 ft 4 in Weight: 61.235 kg ASA Class: 4 (probably having an acute painful crisis from her AIP) Mental Status: Alert & Oriented x3 Airway Class: Mallampati = 2 Dentition: Reports: Normal Dentition ROM/Head Extension: Full Lungs: Clear to Auscultation, Normal Respiratory Effort Cardiovascular: Regular Rate, Regular Rhythm - Lab Values: Laboratory Last Values Urine HCG, Qual NEGATIVE (NEGATIVE) 03/03/19 07:20 - Allergies Allergies/Adverse Reactions: Allergies Allergy/AdvReac Type Severity Reaction Status Date / Time amoxicillin [Amoxicillin] Allergy unknown Verified 03/02/19 13:36 cephalexin [Cephalexin] Allergy unknown Verified 03/02/19 13:36 cephaloridine [Cephaloridine] Allergy Cannot Verified 03/02/19 13:36 Remember Cephalosporins Allergy unknown Verified 03/02/19 13:36 ciprofloxacin [From Cipro] Allergy Cannot Verified 03/02/19 13:36 Remember diphenhydramine Allergy Anaphylactic Verified 03/02/19 13:36 [From Benadryl] Shock erythromycin base Allergy unknown Verified 03/02/19 13:36 [Erythromycin Base] latex Allergy Rash Verified 03/02/19 13:36 Latex, Natural Rubber Allergy Rash Verified 03/02/19 13:36 levofloxacin [From Levaquin] Allergy unknown Verified 03/02/19 13:36 Macrolide Antibiotics Allergy unknown Verified 03/02/19 13:36 Penicillins Allergy Cannot Verified 03/02/19 13:36 Remember Sulfa (Sulfonamide Allergy unknown Verified 01/03/19 00:20 Antibiotics) - Blood Blood Available: No - Anesthesia Plan Pre-Op Medication Ordered: None - Acknowledgements Anesthesia Type Planned: General Anesthesia Pt an Appropriate Candidate for the Planned Anesthesia: Yes Alternatives and Risks of Anesthesia Discussed w Pt/Guardian: Yes Pt/Guardian Understands and Agrees with Anesthesia Plan: Yes Additional Comments: anesthesia problem list: acute intermittant porphuria, maite danlos syndrome, POTS, ibs, migraine, chronic ativan use, on Midodrine (alpha 1 agonist vasopressor) Concerns: pt feels like she is having a pain complication of AIP, with abd pain , headache, increased nausea. She was offered the option of canceling the EGD today and seeing her technical education teacher or redevelopment manager this am instead. She wants to proceede with the EGD and will call her redevelopment manager for an infusion of hematin in the infusion center later today. PLAN: normal saline with D10, TIVA, avoid meds known to exacerbate AIP, PreAnesthesia Questionnaire HEENT History: Reports: Impaired Vision, Other (See Below) Other HEENT History: wears glasses Cardiovascular History: Reports: Blood Clots/VTE/DVT, Other (See Below) Other Cardiovascular History: POTS (postural orthostatic tachycardia syndrome), hx blood clot to leg & blood clot to arm following a PICC line placement, states had mild heartattack in 2004, "at least they treated it as such" Respiratory History: Reports: None Gastrointestinal History: Reports: GERD, Helicobacter Pylori, Other (See Below) Other Gastrointestinal History: intermittent gastroparesis, acute intermittent hepatic porphyria Genitourinary History: Reports: None COMPUTER OPERATOR History: Reports: Other OB/BYN History: tubal ligation Musculoskeletal History: Reports: Fibromyalgia, Osteoarthritis, Other (See Below ) Other Musculoskeletal History: degenerative disk disease; POTS disease Neurological History: Reports: Migraines, Neuropathy, Peripheral, Other (See Below) Other Neuro History: states "possible mini stroke or bells palsy in the past", states had seizure 14 years ago, none since Psychiatric History: Reports: Anxiety, Depression, PTSD Endocrine/Metabolic History: Reports: Other (See Below) Other Endocrine/Metabolic History: porphyria (2001) Hematologic History: Reports: Anemia, Iron Deficiency, Other (See Below) Other Hematologic History: acute intermitent porphyria Immunologic History: Reports: None Oncologic (Cancer) History: Reports: None Dermatologic History: Reports: Other (See Below) Other Dermatologic History: EDS (Maite-Danlos syndrome) - Infectious Disease History Infectious Disease History: Reports: Chicken Pox - Past Surgical History Head Surgeries/Procedures: Reports: None HEENT Surgical History: Reports: None Cardiovascular Surgical History: Reports: None Respiratory Surgical History: Reports: None GI Surgical History: Reports: Cholecystectomy, Colonoscopy, EGD Female Surgical History: Reports: Tubal Ligation Endocrine Surgical History: Reports: None Neurological Surgical History: Reports: None Musculoskeletal Surgical History: Reports: None Oncologic Surgical History: Reports: None Dermatological Surgical History: Reports: Skin Biopsy, Other (See Below) - SUBSTANCE USE Smoking Status *Q: Never Smoker - HOME MEDS Home Medications: Home Meds Ondansetron [Zofran] 1 tab PO Q8H PRN 07/14/13 [History] LORazepam [Ativan] 1 mg PO TID PRN 04/11/17 [History] Cannabis Oil 1 dose PO ASDIRECTED PRN 12/22/18 [History] Midodrine 5 mg PO QID PRN 03/02/19 [History] - CURRENT (IN HOUSE) MEDS Current Meds: Current Medications Lactated Ringer's (Ringers, Lactated) 1,000 mls @ 125 mls/hr IV ASDIRECTED ISMAEL Sodium Chloride (Normal Saline) 300 ml IV NOW STA Stop: 03/03/19 07:45 Discontinued Medications Glycopyrrolate (Robinul) Confirm Administered Dose 0.2 mg .ROUTE .STK-MED ONE Stop: 03/03/19 07:05 Lidocaine (Xylocaine-Mpf 2%) Confirm Administered Dose 5 ml .ROUTE .STK-MED ONE Stop: 03/03/19 07:06 Midazolam HCl (Versed 1 Mg/Ml) Confirm Administered Dose 2 mg .ROUTE .STK-MED ONE Stop: 03/03/19 07:00 Propofol (Diprivan 20 Ml) Confirm Administered Dose 200 mg .ROUTE .STK-MED ONE Stop: 03/03/19 07:00 Propofol (Diprivan 20 Ml) Confirm Administered Dose 200 mg .ROUTE .STK-MED ONE Stop: 03/03/19 07:01
[2019-03-03] MEDS ORDERED: DEXTROSE 10% IV SCH ×2 (08:00)
[2019-03-03] MEDS ORDERED: SODIUM CHLORIDE IV SCH ×2 (08:00)
[2019-03-03] MEDS ORDERED: WATER IV SCH ×2 (08:00)
--- NOTE | 2019-03-03 08:45 | PCM.SN ---
- Free Text/Narrative Note: pt had abd pain X 4 days, sim to a phorphyria flare up. Advice pt to have egd done postphone; pt would like to proceed. and pt would call for infusion after procedure.
[2019-03-03] MEDS ORDERED: Propofol 200 MG/20 ML SDV ONE (08:52)
--- NOTE | 2019-03-03 09:17 | PCM.OPNOTE ---
- General Post-Op/Procedure Note Date of Surgery/Procedure: 03/03/19 Operative Procedure(s): egd w bx Findings: see dict [id number] Pre Op Diagnosis: abd pain and h pylori infection hx Post-Op Diagnosis: duodenitis and gastroparesis Anesthesia Technique: Moderate Sedation Primary Surgeon: Mehrdad Tran Pathology: egd bx Complications: None Condition: Good
--- NOTE | 2019-03-03 09:40 | PCM.POSTAN ---
POST ANESTHESIA ASSESSMENT - MENTAL STATUS Mental Status: Alert, Oriented - VITAL SIGNS Vital Signs: Last Vital Signs Temp 97.3 F 03/03/19 07:30 Pulse 93 03/03/19 09:18 Resp 20 03/03/19 09:18 BP 98/56 L 03/03/19 09:18 Pulse Ox 99 03/03/19 09:18 - RESPIRATORY Respiratory Status: Respiratory Rate WNL, Airway Patent, O2 Saturation Stable - CARDIOVASCULAR CV Status: Pulse Rate WNL, Blood Pressure Stable - GASTROINTESTINAL GI Status: No Symptoms - POST OP HYDRATION Hydration Status: Adequate & Stable
--- NOTE | 2019-03-03 09:40 | PCM48HPAN ---
Post Anesthesia Note - EVALUATION WITHIN 48HRS OF ANESTHETIC Vital Signs in Normal Range: Yes Patient Participated in Evaluation: Yes Respiratory Function Stable: Yes Airway Patent: Yes Cardiovascular Function Stable: Yes Hydration Status Stable: Yes Pain Control Satisfactory: Yes Nausea and Vomiting Control Satisfactory: Yes Mental Status Recovered: Yes Vital Signs: Last Vital Signs Temp 97.3 F 03/03/19 07:30 Pulse 93 03/03/19 09:18 Resp 20 03/03/19 09:18 BP 98/56 L 03/03/19 09:18 Pulse Ox 99 03/03/19 09:18
--- NOTE | 2019-03-03 09:42 | PCM.SN ---
- Free Text/Narrative Note: 1) started on 40 mg omeprazole for duodenitis 2) pt would go iv infusion after procedure for concern another flare up of porphyria
[2019-03-03 09:46] VITALS: BP 104/71; PULSE 86
--- NOTE | 2019-03-03 10:58 | OR ---
SURGEON: Mehrdad Tran MD DATE OF PROCEDURE: PREOPERATIVE DIAGNOSES: Abdominal pain and history of Helicobacter pylori infection. POSTOPERATIVE DIAGNOSES: Duodenitis and gastroparesis. PROCEDURE PERFORMED: Esophagogastroduodenoscopy with biopsy. PRIMARY SURGEON: Mehrdad Tran MD. COMPLICATIONS: None. DESCRIPTION OF PROCEDURE: EGD: The patient was taken to the endoscopy room, and with the PROCESS SAFETY SPECIALIST, Diprivan was administered. A well-lubricated EGD scope was gently inserted through the oropharynx, down the esophagus, passing through the gastroesophageal junction, into the stomach. The mucosa was examined upon the passage. Any etiology will be noted. Once in the stomach, we continued to advance to the distal antrum, passed through the pylorus into the second portion of the duodenum. Again, the mucosa was examined for any abnormality and etiology. The scope was then retrieved back to the stomach and then retroflexed to look at the fundus of the stomach. If a biopsy was indicated, we will biopsy the antrum, body, and gastroesophageal junction. The air will be sucked out while the scope is retrieved to reduce the patient's discomfort. The patient tolerated the procedure well. There were no intraoperative complications. Dr. Tran was present through the whole procedure. Prior to surgery, a time-out had been called, the patient identified, procedure identified and antibiotic administered. FINDINGS: 1. The patient is easily sedated with PROCESS SAFETY SPECIALIST and Diprivan, the patient is soundly snoring. 2. Oropharynx and proximal esophagus are free of disease, stricture, or inflammation. Distal esophagus at GE junction at 40 shows mild salmon- colored change, consistent with mild acid reflux. Duodenum rugae are a little bit flattened, consistent with possible chronic over-acid production. Antrum is normal in appearance and duodenal bulb was quite inflamed, consistent with duodenitis. The second portion onward duodenum grossly normal. Stomach encountered large amount of partially digested food, consistent with gastroparesis, and also because of the amount of food, compromised study. Biopsy done at antrum, body, and sucked out the gas while scope pulling out. During the whole study, did not observe blood, ulcer, or bile. The patient has large amount of partially digested food. JAH / LISA /[id number]
== END 2019-03-03 10:18 | disposition home or self-care (01) ==
LOC: MW.SDS 07:17
PROVIDERS: ATTEND Surgery
DX: K29.50 Unspecified chronic gastritis without bleeding (principal); K29.80 Duodenitis without bleeding; K31.84 Gastroparesis; K21.9 Gastro-esophageal reflux disease without esophagitis; F41.9 Anxiety disorder, unspecified; F32.9 Major depressive disorder, single episode, unspecified; Q79.60 Ehlers-Danlos syndrome, unspecified; G43.009 Migraine without aura, not intractable, without status migrainosus; M19.90 Unspecified osteoarthritis, unspecified site; Z88.1 Allergy status to other antibiotic agents; Z88.0 Allergy status to penicillin; Z88.2 Allergy status to sulfonamides; Z91.040 Latex allergy status; Z88.8 Allergy status to other drugs, medicaments and biological substances; Z86.19 Personal history of other infectious and parasitic diseases
CPT/HCPCS: 43239; 81025; J2001; J2250; J2704; J3490; J7131

== ENCOUNTER 2019-03-10 17:51 | Emergency (ER) | payer BC ==
[2019-03-10 18:23] VITALS: BP 119/78; PULSE 110
[2019-03-10] MEDS ORDERED: Sodium Chloride 0.9% 1,000 ML IV ONE (18:54)
[2019-03-10] MEDS ORDERED: Ketorolac 30 MG/ML SDV IVPUSH ONE (18:54)
--- NOTE | 2019-03-10 18:59 | EDM.PDOC ---
ED HPI GENERAL MEDICAL PROBLEM - General Chief Complaint: Abdominal Pain Stated Complaint: PAIN Time Seen by Provider: 03/10/19 18:41 Source of Information: Reports: Patient History Limitations: Reports: No Limitations - History of Present Illness Duration: Hour(s):, Getting Worse, Intermittent Location: Reports: Abdomen Quality: Reports: Ache Severity: Moderate Improves with: Reports: None Worsens with: Reports: None Associated Symptoms: Reports: No Other Symptoms right side Pain Score (Numeric/FACES): 6 - Related Data Allergies Allergy/AdvReac Type Severity Reaction Status Date / Time amoxicillin [Amoxicillin] Allergy unknown Verified 03/10/19 18:23 cephalexin [Cephalexin] Allergy unknown Verified 03/10/19 18:23 cephaloridine [Cephaloridine] Allergy Cannot Verified 03/10/19 18:23 Remember Cephalosporins Allergy unknown Verified 03/10/19 18:23 ciprofloxacin [From Cipro] Allergy Cannot Verified 03/10/19 18:23 Remember diphenhydramine Allergy Anaphylactic Verified 03/10/19 18:23 [From Benadryl] Shock erythromycin base Allergy unknown Verified 03/10/19 18:23 [Erythromycin Base] ketorolac [From Toradol] Allergy Other Verified 03/10/19 20:18 latex Allergy Rash Verified 03/10/19 18:23 Latex, Natural Rubber Allergy Rash Verified 03/10/19 18:23 levofloxacin [From Levaquin] Allergy unknown Verified 03/10/19 18:23 Macrolide Antibiotics Allergy unknown Verified 03/10/19 18:23 Penicillins Allergy Cannot Verified 03/10/19 18:23 Remember Sulfa (Sulfonamide Allergy unknown Verified 03/10/19 18:23 Antibiotics) Home Meds: Home Meds Ondansetron [Zofran] 1 tab PO Q8H PRN 07/14/13 [History] LORazepam [Ativan] 1 mg PO TID PRN 04/11/17 [History] Cannabis Oil 1 dose PO ASDIRECTED PRN 12/22/18 [History] Midodrine 5 mg PO QID PRN 03/02/19 [History] Past Medical History HEENT History: Reports: Impaired Vision, Other (See Below) Other HEENT History: wears glasses Cardiovascular History: Reports: Blood Clots/VTE/DVT, Other (See Below) Other Cardiovascular History: POTS (postural orthostatic tachycardia syndrome), hx blood clot to leg & blood clot to arm following a PICC line placement, states had mild heartattack in 2005, "at least they treated it as such" Respiratory History: Reports: None Gastrointestinal History: Reports: GERD, Helicobacter Pylori, Other (See Below) Other Gastrointestinal History: intermittent gastroparesis, acute intermittent hepatic porphyria Genitourinary History: Reports: None DIRECTOR EMPLOYMENT History: Reports: Other DIRECTOR EMPLOYMENT History: tubal ligation Musculoskeletal History: Reports: Fibromyalgia, Osteoarthritis, Other (See Below ) Other Musculoskeletal History: degenerative disk disease; POTS disease Neurological History: Reports: Migraines, Neuropathy, Peripheral, Other (See Below) Other Neuro History: states "possible mini stroke or bells palsy in the past", states had seizure 14 years ago, none since Psychiatric History: Reports: Anxiety, Depression, PTSD Endocrine/Metabolic History: Reports: Other (See Below) Other Endocrine/Metabolic History: porphyria (2001) Hematologic History: Reports: Anemia, Iron Deficiency, Other (See Below) Other Hematologic History: acute intermitent porphyria Immunologic History: Reports: None Oncologic (Cancer) History: Reports: None Dermatologic History: Reports: Other (See Below) Other Dermatologic History: EDS (Maite-Danlos syndrome) - Infectious Disease History Infectious Disease History: Reports: Chicken Pox - Past Surgical History Head Surgeries/Procedures: Reports: None HEENT Surgical History: Reports: None Cardiovascular Surgical History: Reports: None Respiratory Surgical History: Reports: None GI Surgical History: Reports: Cholecystectomy, Colonoscopy, EGD Female Surgical History: Reports: Tubal Ligation Endocrine Surgical History: Reports: None Neurological Surgical History: Reports: None Musculoskeletal Surgical History: Reports: None Oncologic Surgical History: Reports: None Dermatological Surgical History: Reports: Skin Biopsy, Other (See Below) Social & Family History - Family History Family Medical History: Noncontributory Oncologic: Reports: None - Tobacco Use Smoking Status *Q: Never Smoker - Caffeine Use Caffeine Use: Reports: Coffee - Recreational Drug Use Recreational Drug Use: Yes Drug Use in Last 12 Months: Yes Recreational Drug Type: Reports: Marijuana/Hashish ED ROS GENERAL - Review of Systems Review Of Systems: Comprehensive ROS is negative, except as noted in HPI. Constitutional: Reports: No Symptoms HEENT: Reports: No Symptoms Respiratory: Reports: No Symptoms Cardiovascular: Reports: No Symptoms Endocrine: Reports: No Symptoms GI/Abdominal: Reports: Abdominal Pain : Reports: Flank Pain Musculoskeletal: Reports: No Symptoms Skin: Reports: No Symptoms Neurological: Reports: No Symptoms Psychiatric: Reports: No Symptoms Hematologic/Lymphatic: Reports: No Symptoms Immunologic: Reports: No Symptoms ED EXAM, RENAL/ - Physical Exam Exam: See Below Exam Limited By: No Limitations General Appearance: Alert, WD/WN, No Apparent Distress, Mild Distress Eye Exam: Bilateral Eye: Normal Fundi, Normal Inspection Ears: Normal External Exam, Normal Canal, Hearing Grossly Normal, Normal TMs Nose: Normal Inspection, Normal Mucosa, No Blood Throat/Mouth: Normal Inspection, Normal Lips, Normal Teeth, Normal Gums, Normal Oropharynx, Normal Voice, No Airway Compromise Head: Atraumatic, Normocephalic Neck: Normal Inspection, Supple, Non-Tender, Full Range of Motion Respiratory/Chest: No Respiratory Distress, Lungs Clear, Normal Breath Sounds, No Accessory Muscle Use, Chest Non-Tender Cardiovascular: Normal Peripheral Pulses, Regular Rate, Rhythm, No Edema, No Gallop, No JVD, No Murmur, No Rub GI/Abdominal: Normal Bowel Sounds, No Organomegaly, No Distention, No Abnormal Bruit, No Mass, Pelvis Stable, Tender (Female) Exam: Deferred Rectal (Female) Exam: Deferred Back Exam: Normal Inspection, Full Range of Motion Extremities: Normal Inspection, Normal Range of Motion, Non-Tender, No Pedal Edema, Normal Capillary Refill Neurological: Alert, Oriented, CN II-XII Intact, Normal Cognition, Normal Gait, Normal Reflexes, No Motor/Sensory Deficits Psychiatric: Normal Affect, Normal Mood Skin Exam: Warm, Dry, Intact, Normal Color Lymphatic: No Adenopathy Course - Vital Signs Last Recorded V/S: Last Vital Signs Temp 98.3 F 03/10/19 18:21 Pulse 110 H 03/10/19 18:21 Resp 16 03/10/19 18:21 BP 119/78 03/10/19 18:21 Pulse Ox 97 03/10/19 18:21 - Orders/Labs/Meds Orders: Active Orders 24 hr Category Date Time Status CMP [COMPREHENSIVE METABOLIC PN,CMP] [CHEM] Stat Lab 03/10/19 20:15 Received Labs: Laboratory Tests 03/10/19 03/10/19 Range/Units 20:00 20:15 WBC 7.19 (4.0-11.0) K/uL RBC 5.42 (4.30-5.90) M/uL Hgb 16.0 (12.0-16.0) g/dL Hct 46.3 H (36.0-46.0) % MCV 85.4 (80.0-98.0) fL MCH 29.5 (27.0-32.0) pg MCHC 34.6 (31.0-37.0) g/dL RDW Std Deviation 39.4 (28.0-62.0) fl RDW Coeff of Shila 13 (11.0-15.0) % Plt Count 246 (150-400) K/uL MPV 9.20 (7.40-12.00) fL Neut % (Auto) 61.8 (48.0-80.0) % Lymph % (Auto) 30.3 (16.0-40.0) % Dickey % (Auto) 6.5 (0.0-15.0) % Eos % (Auto) 1.0 (0.0-7.0) % Baso % (Auto) 0.4 (0.0-1.5) % Neut # (Auto) 4.4 (1.4-5.7) K/uL Lymph # (Auto) 2.2 (0.6-2.4) K/uL Dickey # (Auto) 0.5 (0.0-0.8) K/uL Eos # (Auto) 0.1 (0.0-0.7) K/uL Baso # (Auto) 0.0 (0.0-0.1) K/uL Nucleated RBC % 0.0 /100WBC Nucleated RBCs # 0 K/uL Urine Color YELLOW Urine Appearance SLT CLOUDY Urine pH 5.5 (5.0-8.0) Ur Specific Borden >= 1.030 (1.001-1.035) Urine Protein NEGATIVE (NEGATIVE) mg/dL Urine Glucose (UA) NEGATIVE (NEGATIVE) mg/dL Urine Ketones NEGATIVE (NEGATIVE) mg/dL Urine Occult Blood NEGATIVE (NEGATIVE) Urine Nitrite NEGATIVE (NEGATIVE) Urine Bilirubin SMALL H (NEGATIVE) Urine Ictotest NEGATIVE Urine Urobilinogen 0.2 (<2.0) EU/dL Ur Leukocyte Esterase NEGATIVE (NEGATIVE) Meds: Medications Discontinued Medications Generic Name Dose Route Start Last Admin Trade Name Freq PRN Reason Stop Dose Admin Al Hydroxide/Mg Hydroxide 15 0 ml 03/10/19 20:39 ml/ Metoclopramide HCl 5 mg/ PO 03/10/19 20:40 Lidocaine HCl 5 ml ONETIME ONE Sodium Chloride 1,000 mls @ 1,000 mls/hr 03/10/19 18:54 03/10/19 19:50 Normal Saline IV 03/10/19 19:53 1,000 mls/hr .Bolus ONE Administration Ketorolac Tromethamine 30 mg 03/10/19 18:54 03/10/19 20:13 Toradol IVPUSH 03/10/19 18:55 Not Given ONETIME ONE Departure - Departure Time of Disposition: 20:43 Disposition: Home, Self-Care 01 Clinical Impression: Gastroenteritis, Abdominal pain - Discharge Information Instructions: Viral Gastroenteritis, Adult, [id number] Referrals: Diego Dang MD [Primary Care Provider] - Forms: ED Department Discharge Sepsis Event Note - Evaluation Sepsis Screening Result: No Definite Risk - Focused Exam Vital Signs: Vital Signs Temp Pulse Resp BP Pulse Ox 03/10/19 18:21 98.3 F 110 H 16 119/78 97 Date Exam was Performed: 03/10/19 Time Exam was Performed: 20:44 - My Orders Last 24 Hours: My Active Orders 03/10/19 20:15 CMP [COMPREHENSIVE METABOLIC PN,CMP] [CHEM] Stat - Assessment/Plan Last 24 Hours: My Active Orders 03/10/19 20:15 CMP [COMPREHENSIVE METABOLIC PN,CMP] [CHEM] Stat
--- NOTE | 2019-03-10 19:55 | CT ---
CT abdomen and pelvis Technique: Multiple axial sections were obtained from above the dome of the diaphragm inferiorly through the pubic symphysis. Intravenous and oral contrast not utilized. Comparison: Prior CT abdomen and pelvis exam of 01/03/19. Findings: Small nonobstructing calculus is noted within the lower left kidney measuring 2.5 mm. No additional abnormality is appreciated within the kidneys. No ureteral dilatation or ureteral stone is seen. Visualized lung bases show nothing acute. Liver contains no focal abnormality. Surgical clips are seen from prior cholecystectomy. Spleen appears within normal limits. Adrenal glands show no nodule. No discrete abnormality within the pancreas is seen. Aorta shows no aneurysm. No retroperitoneal adenopathy or mesenteric abnormalities are seen. No pelvic mass or adenopathy is identified. Appendix felt to be visualized and appears normal in size. Mild increased stool is noted throughout the colon. No inflammatory change or free fluid is seen. Impression: 1. Slight increased stool within the colon. 2. Small 2.5 mm nonobstructing stone within the lower left kidney. 3. No ureteral dilatation or ureteral stone is seen. 4. Nothing acute is appreciated on noncontrast CT study of the abdomen and pelvis. Diagnostic code #2 This report was dictated in [place] Standard Time
[2019-03-10] MEDS ORDERED: Alum Hydrox/Mag Hydrox/Simeth 15 ML, Metoclopramide 5 MG, Lidocaine 2% 5 ML PO ONE ×3 (20:39)
[2019-03-10 20:42] LABS: BLOOD UREA NITROGEN,BUN 18 mg/dL (7.0-18.0); CARBON DIOXIDE,CO2 27.3 mmol/L (21.0-32.0); CHLORIDE,CL 105 mmol/L (98-107); GLUCOSE RANDOM 90 mg/dL (74-106); POTASSIUM,K 4.1 mmol/L (3.5-5.1); SODIUM,NA 141 mmol/L (136-145)
[2019-03-10] MEDS ORDERED: Heparin Sodium 10 Units/ML 5 ML Syringe FLUSH ONE (21:34)
== END 2019-03-10 21:40 | disposition home or self-care (01) ==
LOC: MW.ED 17:51
DX: K52.9 Noninfective gastroenteritis and colitis, unspecified (principal); K21.9 Gastro-esophageal reflux disease without esophagitis; F41.9 Anxiety disorder, unspecified; Z79.899 Other long term (current) drug therapy; Z88.0 Allergy status to penicillin; Z88.1 Allergy status to other antibiotic agents; Z88.2 Allergy status to sulfonamides; Z88.6 Allergy status to analgesic agent; Z88.8 Allergy status to other drugs, medicaments and biological substances; Z91.040 Latex allergy status
CPT/HCPCS: 36415; 74176; 80053; 81003; 85025; 96360; 96361; 99284; A9270; J1642; J7030

== ENCOUNTER 2019-04-07 17:02 | Emergency (ER) | payer BC ==
[2019-04-07] MEDS ORDERED: Sodium Chloride 0.9% 1,000 ML IV ONE (17:12)
[2019-04-07] MEDS ORDERED: Promethazine 25 MG/ML SDV IM ONE (17:25)
[2019-04-07] MEDS ORDERED: LORazepam 2 MG/ML SDV IVPUSH ONE (17:25)
[2019-04-07] MEDS ORDERED: Meperidine PF 25 MG/ML Syringe IVPUSH ONE (18:01)
[2019-04-07 18:21] LABS: BLOOD UREA NITROGEN,BUN 21 mg/dL (7.0-18.0); CARBON DIOXIDE,CO2 23.6 mmol/L (21.0-32.0); CHLORIDE,CL 106 mmol/L (98-107); GLUCOSE RANDOM 89 mg/dL (74-106); POTASSIUM,K 3.7 mmol/L (3.5-5.1); SODIUM,NA 139 mmol/L (136-145)
--- NOTE | 2019-04-07 18:42 | EDM.PDOC ---
ED HPI GENERAL MEDICAL PROBLEM - General Chief Complaint: Headache Stated Complaint: BACK PAIN Time Seen by Provider: 04/07/19 18:38 Source of Information: Reports: Patient - History of Present Illness INITIAL COMMENTS - FREE TEXT/NARRATIVE: HISTORY AND PHYSICAL: History of present illness: [Presents with a couple of main complaints and several minor complaints She presents tonight for headache and low back pain she was shola 2 to 3 weeks ago through the ER for gastroenteritis and has had back pain since however she has a long history of low back pain and 12 years ago was considered for roxi placement at which time she declined she follows with primary for chronic headaches and through oncology for porphyria Denies headache 6 out of 10 nonradiating right unilateral normal CT within the last year to year and a half she is scheduled for MRI next week From low back pain standpoint no new injury or trauma there is no x-ray on file we are performing a lumbar spine plain films at this time noted radiation or radiculopathy No fever nausea vomiting chills sweats no chest pain shortness of breath dizziness or palpitation no bowel or urine symptoms today drop or saddle anesthesia ] Review of systems: As per history of present illness and below otherwise all systems reviewed and negative. Past medical history: As per history of present illness and as reviewed below otherwise noncontributory. Surgical history: As per history of present illness and as reviewed below otherwise noncontributory. Social history: No reported history of drug or alcohol abuse. Family history: As per history of present illness and as reviewed below otherwise noncontributory. Physical exam: HEENT: Atraumatic, normocephalic, pupils reactive, negative for conjunctival pallor or scleral icterus, mucous membranes moist, throat clear, neck supple, nontender, trachea midline. Lungs: Clear to auscultation, breath sounds equal bilaterally, chest nontender. Heart: S1S2, regular, negative for clicks, rubs, or JVD. Abdomen: Soft, nondistended, nontender. Negative for masses or hepatosplenomegaly. Negative for costovertebral tenderness. Pelvis: Stable nontender. Genitourinary: Deferred. Rectal: Deferred. Extremities: Atraumatic, negative for cords or calf pain. Neurovascular unremarkable. Neuro: Awake, alert, oriented. Cranial nerves II through XII unremarkable. Cerebellum unremarkable. Motor and sensory unremarkable throughout. Exam nonfocal. Diagnostics: [BC CMP UA hCG Lumbar spine CT head on file Recent CT abdomen pelvis on file] Therapeutics: [Saline Ativan Phenergan Zofran Demerol 25 mg IV ]tramadol Impression: [headache chronic low back pain Findings muscle spasm lumbar region chronic hx baseline] Definitive disposition and diagnosis as appropriate pending reevaluation and review of above. lower back Pain Score (Numeric/FACES): 8 - Related Data Allergies Allergy/AdvReac Type Severity Reaction Status Date / Time amoxicillin [Amoxicillin] Allergy unknown Verified 04/07/19 17:25 cephalexin [Cephalexin] Allergy unknown Verified 04/07/19 17:25 cephaloridine [Cephaloridine] Allergy Cannot Verified 04/07/19 17:25 Remember Cephalosporins Allergy unknown Verified 04/07/19 17:25 ciprofloxacin [From Cipro] Allergy Cannot Verified 04/07/19 17:25 Remember diphenhydramine Allergy Anaphylactic Verified 04/07/19 17:25 [From Benadryl] Shock erythromycin base Allergy unknown Verified 04/07/19 17:25 [Erythromycin Base] ketorolac [From Toradol] Allergy Other Verified 04/07/19 17:25 latex Allergy Rash Verified 04/07/19 17:25 Latex, Natural Rubber Allergy Rash Verified 04/07/19 17:25 levofloxacin [From Levaquin] Allergy unknown Verified 04/07/19 17:25 Macrolide Antibiotics Allergy unknown Verified 04/07/19 17:25 Penicillins Allergy Cannot Verified 04/07/19 17:25 Remember Sulfa (Sulfonamide Allergy unknown Verified 04/07/19 17:25 Antibiotics) Home Meds: Home Meds Ondansetron [Zofran] 1 tab PO Q8H PRN 07/14/13 [History] LORazepam [Ativan] 1 mg PO TID PRN 04/11/17 [History] Cannabis Oil 1 dose PO ASDIRECTED PRN 12/22/18 [History] Midodrine 5 mg PO QID PRN 03/02/19 [History] Past Medical History HEENT History: Reports: Impaired Vision, Other (See Below) Other HEENT History: wears glasses Cardiovascular History: Reports: Blood Clots/VTE/DVT, Other (See Below) Other Cardiovascular History: POTS (postural orthostatic tachycardia syndrome), hx blood clot to leg & blood clot to arm following a PICC line placement, states had mild heartattack in 2004, "at least they treated it as such" Respiratory History: Reports: None Gastrointestinal History: Reports: GERD, Helicobacter Pylori, Other (See Below) Other Gastrointestinal History: intermittent gastroparesis, acute intermittent hepatic porphyria Genitourinary History: Reports: None 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 Musculoskeletal History: Reports: Fibromyalgia, Osteoarthritis, Other (See Below ) Other Musculoskeletal History: degenerative disk disease; POTS disease Neurological History: Reports: Migraines, Neuropathy, Peripheral, Other (See Below) Other Neuro History: states "possible mini stroke or bells palsy in the past", states had seizure 14 years ago, none since Psychiatric History: Reports: Anxiety, Depression, PTSD Endocrine/Metabolic History: Reports: Other (See Below) Other Endocrine/Metabolic History: porphyria (2001) Hematologic History: Reports: Anemia, Iron Deficiency, Other (See Below) Other Hematologic History: acute intermitent porphyria Immunologic History: Reports: None Oncologic (Cancer) History: Reports: None Dermatologic History: Reports: Other (See Below) Other Dermatologic History: EDS (Maite-Danlos syndrome) - Infectious Disease History Infectious Disease History: Reports: Chicken Pox - Past Surgical History Head Surgeries/Procedures: Reports: None HEENT Surgical History: Reports: None Cardiovascular Surgical History: Reports: None Respiratory Surgical History: Reports: None GI Surgical History: Reports: Cholecystectomy, Colonoscopy, EGD Female Surgical History: Reports: Tubal Ligation Endocrine Surgical History: Reports: None Neurological Surgical History: Reports: None Musculoskeletal Surgical History: Reports: None Oncologic Surgical History: Reports: None Dermatological Surgical History: Reports: Skin Biopsy, Other (See Below) Social & Family History - Family History Family Medical History: Noncontributory Oncologic: Reports: None - Tobacco Use Smoking Status *Q: Never Smoker Second Hand Smoke Exposure: No - Caffeine Use Caffeine Use: Reports: Coffee - Recreational Drug Use Recreational Drug Use: No ED ROS GENERAL - Review of Systems Review Of Systems: See Below ED EXAM, GENERAL - Physical Exam Exam: See Below Course - Vital Signs Last Recorded V/S: Last Vital Signs Temp 99 F 04/07/19 17:23 Pulse 99 04/07/19 17:23 Resp 18 04/07/19 17:23 BP 124/77 04/07/19 17:23 Pulse Ox 98 04/07/19 17:23 - Orders/Labs/Meds Orders: Active Orders 24 hr Category Date Time Status Lumbar Spine 2 or 3V [CR] Stat Exams 04/07/19 17:48 Taken Labs: Laboratory Tests 04/07/19 04/07/19 04/07/19 Range/Units 17:33 17:33 17:54 WBC 10.08 (4.0-11.0) K/uL RBC 4.87 (4.30-5.90) M/uL Hgb 14.4 (12.0-16.0) g/dL Hct 40.7 (36.0-46.0) % MCV 83.6 (80.0-98.0) fL MCH 29.6 (27.0-32.0) pg MCHC 35.4 (31.0-37.0) g/dL RDW Std Deviation 38.0 (28.0-62.0) fl RDW Coeff of Shila 13 (11.0-15.0) % Plt Count 234 (150-400) K/uL MPV 9.00 (7.40-12.00) fL Neut % (Auto) 54.3 (48.0-80.0) % Lymph % (Auto) 36.3 (16.0-40.0) % [place] % (Auto) 6.3 (0.0-15.0) % Eos % (Auto) 2.8 (0.0-7.0) % Baso % (Auto) 0.3 (0.0-1.5) % Neut # (Auto) 5.5 (1.4-5.7) K/uL Lymph # (Auto) 3.7 H (0.6-2.4) K/uL [place] # (Auto) 0.6 (0.0-0.8) K/uL Eos # (Auto) 0.3 (0.0-0.7) K/uL Baso # (Auto) 0.0 (0.0-0.1) K/uL Nucleated RBC % 0.0 /100WBC Nucleated RBCs # 0 K/uL Sodium (136-145) mmol/L Potassium (3.5-5.1) mmol/L Chloride (98-107) mmol/L Carbon Dioxide (21.0-32.0) mmol/L BUN (7.0-18.0) mg/dL Creatinine (0.6-1.0) mg/dL Est Cr Clr Drug Dosing mL/min Estimated GFR (MDRD) ml/min Glucose (74-106) mg/dL Calcium (8.5-10.1) mg/dL Total Bilirubin (0.2-1.0) mg/dL AST (15-37) IU/L ALT (14-63) IU/L Alkaline Phosphatase (46-116) U/L Total Protein (6.4-8.2) g/dL Albumin (3.4-5.0) g/dL Globulin (2.6-4.0) g/dL Albumin/Globulin Ratio (0.9-1.6) Urine Color YELLOW Urine Appearance SLT CLOUDY Urine pH 6.5 (5.0-8.0) Ur Specific [place] >= 1.030 (1.001-1.035) Urine Protein NEGATIVE (NEGATIVE) mg/dL Urine Glucose (UA) NEGATIVE (NEGATIVE) mg/dL Urine Ketones NEGATIVE (NEGATIVE) mg/dL Urine Occult Blood NEGATIVE (NEGATIVE) Urine Nitrite NEGATIVE (NEGATIVE) Urine Bilirubin SMALL H (NEGATIVE) Urine Ictotest NEGATIVE Urine Urobilinogen 0.2 (<2.0) EU/dL Ur Leukocyte Esterase NEGATIVE (NEGATIVE) Urine HCG, Qual NEGATIVE (NEGATIVE) 04/07/19 Range/Units 17:54 WBC (4.0-11.0) K/uL RBC (4.30-5.90) M/uL Hgb (12.0-16.0) g/dL Hct (36.0-46.0) % MCV (80.0-98.0) fL MCH (27.0-32.0) pg MCHC (31.0-37.0) g/dL RDW Std Deviation (28.0-62.0) fl RDW Coeff of Shila (11.0-15.0) % Plt Count (150-400) K/uL MPV (7.40-12.00) fL Neut % (Auto) (48.0-80.0) % Lymph % (Auto) (16.0-40.0) % [place] % (Auto) (0.0-15.0) % Eos % (Auto) (0.0-7.0) % Baso % (Auto) (0.0-1.5) % Neut # (Auto) (1.4-5.7) K/uL Lymph # (Auto) (0.6-2.4) K/uL [place] # (Auto) (0.0-0.8) K/uL Eos # (Auto) (0.0-0.7) K/uL Baso # (Auto) (0.0-0.1) K/uL Nucleated RBC % /100WBC Nucleated RBCs # K/uL Sodium 139 (136-145) mmol/L Potassium 3.7 (3.5-5.1) mmol/L Chloride 106 (98-107) mmol/L Carbon Dioxide 23.6 (21.0-32.0) mmol/L BUN 21 H (7.0-18.0) mg/dL Creatinine 0.8 (0.6-1.0) mg/dL Est Cr Clr Drug Dosing 75.78 mL/min Estimated GFR (MDRD) > 60.0 ml/min Glucose 89 (74-106) mg/dL Calcium 10.3 H (8.5-10.1) mg/dL Total Bilirubin 0.3 (0.2-1.0) mg/dL AST 17 (15-37) IU/L ALT 29 (14-63) IU/L Alkaline Phosphatase 57 (46-116) U/L Total Protein 7.1 (6.4-8.2) g/dL Albumin 3.9 (3.4-5.0) g/dL Globulin 3.2 (2.6-4.0) g/dL Albumin/Globulin Ratio 1.2 (0.9-1.6) Urine Color Urine Appearance Urine pH (5.0-8.0) Ur Specific [place] (1.001-1.035) Urine Protein (NEGATIVE) mg/dL Urine Glucose (UA) (NEGATIVE) mg/dL Urine Ketones (NEGATIVE) mg/dL Urine Occult Blood (NEGATIVE) Urine Nitrite (NEGATIVE) Urine Bilirubin (NEGATIVE) Urine Ictotest Urine Urobilinogen (<2.0) EU/dL Ur Leukocyte Esterase (NEGATIVE) Urine HCG, Qual (NEGATIVE) Meds: Medications Discontinued Medications Generic Name Dose Route Start Last Admin Trade Name Freq PRN Reason Stop Dose Admin Sodium Chloride 1,000 mls @ 999 mls/hr 04/07/19 17:12 04/07/19 17:56 Normal Saline IV 04/07/19 18:12 999 mls/hr STAT ONE Administration Lorazepam 1 mg 04/07/19 17:25 04/07/19 17:56 Ativan IVPUSH 04/07/19 17:26 1 mg ONETIME ONE Administration Meperidine HCl 25 mg 04/07/19 18:01 Demerol IVPUSH 04/07/19 18:02 ONETIME ONE Promethazine HCl 25 mg 04/07/19 17:25 04/07/19 17:57 Phenergan IM 04/07/19 17:26 25 mg ONETIME ONE Administration Departure - Departure Time of Disposition: 18:41 Disposition: Home, Self-Care 01 Condition: Good Clinical Impression: Head ache, Chronic low back pain - Discharge Information Referrals: Diego Dang MD [Primary Care Provider] - Additional Instructions: The following information is given to patients seen in the emergency department who are being discharged to home. This information is to outline your options for follow-up care. We provide all patients seen in our emergency department with a follow-up referral. The need for follow-up, as well as the timing and circumstances, are variable depending upon the specifics of your emergency department visit. If you don't have a primary care physician on staff, we will provide you with a referral. We always advise you to contact your personal physician following an emergency department visit to inform them of the circumstance of the visit and for follow-up with them and/or the need for any referrals to a consulting specialist. The emergency department will also refer you to a specialist when appropriate. This referral assures that you have the opportunity for follow-up care with a specialist. All of these measure are taken in an effort to provide you with optimal care, which includes your follow-up. Under all circumstances we always encourage you to contact your private physician who remains a resource for coordinating your care. When calling for follow-up care, please make the office aware that this follow-up is from your recent emergency room visit. If for any reason you are refused follow-up, please contact the [facility] emergency department at and asked to speak to the emergency department charge nurse. Sepsis Event Note - Evaluation Sepsis Screening Result: No Definite Risk - Focused Exam Vital Signs: Vital Signs Temp Pulse Resp BP Pulse Ox 02/07/20 17:23 99 F 99 18 124/77 98 Date Exam was Performed: 04/07/19 Time Exam was Performed: 18:38 - My Orders Last 24 Hours: My Active Orders 04/07/19 17:48 Lumbar Spine 2 or 3V [CR] Stat - Assessment/Plan Last 24 Hours: My Active Orders 04/07/19 17:48 Lumbar Spine 2 or 3V [CR] Stat
--- NOTE | 2019-04-07 18:50 | CR ---
Lumbar spine: AP, lateral and coned-down lateral view centered to the lumbosacral junction obtained. Comparison: No prior lumbar spine imaging. Findings: Vertebral body heights and disc spaces are maintained. Pedicles are intact. Visualized transverse and spinous processes are intact. No subluxation or acute fracture is appreciated. Surgical clips are seen from prior cholecystectomy. Mild increased stool is noted within the colon. Impression: 1. Mild increased stool within the colon. 2. No abnormality is seen within the lumbar spine. Diagnostic code #2 This report was dictated in [place] Standard Time
[2019-04-07 20:11] VITALS: BP 109/65; PULSE 92
== END 2019-04-07 20:11 | disposition home or self-care (01) ==
LOC: MW.ED 17:02
DX: R51 Headache (principal); M62.830 Muscle spasm of back; Z88.1 Allergy status to other antibiotic agents; Z88.8 Allergy status to other drugs, medicaments and biological substances; Z88.6 Allergy status to analgesic agent; Z91.040 Latex allergy status; Z88.0 Allergy status to penicillin; Z88.2 Allergy status to sulfonamides; Z79.899 Other long term (current) drug therapy
CPT/HCPCS: 36415; 72100; 80053; 81003; 81025; 85025; 96361; 96372; 96374; 96375; 99284; J2060; J2175; J2550; J7030; 99283

== ENCOUNTER 2019-07-15 01:44 | Emergency (ER) | payer BC ==
--- NOTE | 2019-07-15 02:21 | EDM.PDOC ---
ED HPI GENERAL MEDICAL PROBLEM - General Chief Complaint: General Stated Complaint: ISSUE WITH PORT IN CHEST, SLIGHT FEVER Time Seen by Provider: 07/15/19 02:00 - History of Present Illness INITIAL COMMENTS - FREE TEXT/NARRATIVE: 43-year-old female presents with pain in the right chest following position change. Patient reports a history of acute intermittent porphyria and she gets transfusions at variable intervals based on her clinical condition. Last transfusion was about 2 weeks ago. Tonight she was bending forward and she felt a pop or snap under her right clavicle right where her tunneled port is. Following this she had some pain in her back just medial to her scapula. And she had a sharp headache which is much improved now. She has no other complaints. No vision changes, no headaches, no nausea above baseline, no weakness, no numbness, no vision changes, no neck pain, no difficulty understanding speech or speaking. port Pain Score (Numeric/FACES): 5 - Related Data Allergies Allergy/AdvReac Type Severity Reaction Status Date / Time amoxicillin [Amoxicillin] Allergy unknown Verified 04/07/19 17:25 cephalexin [Cephalexin] Allergy unknown Verified 04/07/19 17:25 cephaloridine [Cephaloridine] Allergy Cannot Verified 04/07/19 17:25 Remember Cephalosporins Allergy unknown Verified 04/07/19 17:25 ciprofloxacin [From Cipro] Allergy Cannot Verified 04/07/19 17:25 Remember diphenhydramine Allergy Anaphylactic Verified 04/07/19 17:25 [From Benadryl] Shock erythromycin base Allergy unknown Verified 04/07/19 17:25 [Erythromycin Base] ketorolac [From Toradol] Allergy Other Verified 04/07/19 17:25 latex Allergy Rash Verified 04/07/19 17:25 Latex, Natural Rubber Allergy Rash Verified 04/07/19 17:25 levofloxacin [From Levaquin] Allergy unknown Verified 04/07/19 17:25 Macrolide Antibiotics Allergy unknown Verified 04/07/19 17:25 Penicillins Allergy Cannot Verified 04/07/19 17:25 Remember Sulfa (Sulfonamide Allergy unknown Verified 04/07/19 17:25 Antibiotics) Home Meds: Home Meds Ondansetron [Zofran] 1 tab PO Q8H PRN 07/14/13 [History] LORazepam [Ativan] 1 mg PO TID PRN 04/11/17 [History] Cannabis Oil 1 dose PO ASDIRECTED PRN 12/22/18 [History] Midodrine 5 mg PO QID PRN 03/02/19 [History] Past Medical History HEENT History: Reports: Impaired Vision, Other (See Below) Other HEENT History: wears glasses Cardiovascular History: Reports: Blood Clots/VTE/DVT, [place], Other (See Below) Other Cardiovascular History: POTS (postural orthostatic tachycardia syndrome), hx blood clot to leg & blood clot to arm following a PICC line placement, states had mild heartattack in 2004, "at least they treated it as such" Respiratory History: Reports: None Gastrointestinal History: Reports: GERD, Helicobacter Pylori, Other (See Below) Other Gastrointestinal History: intermittent gastroparesis, acute intermittent hepatic porphyria Genitourinary History: Reports: None [employer]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 Musculoskeletal History: Reports: Fibromyalgia, Osteoarthritis, Other (See Below ) Other Musculoskeletal History: degenerative disk disease; POTS disease Neurological History: Reports: Migraines, Neuropathy, Peripheral, Seizure, Other (See Below) Other Neuro History: states "possible mini stroke or bells palsy in the past", states had seizure 14 years ago, none since Psychiatric History: Reports: Anxiety, Depression, PTSD Endocrine/Metabolic History: Reports: Other (See Below) Other Endocrine/Metabolic History: porphyria (2001) Hematologic History: Reports: Anemia, Iron Deficiency, Other (See Below) Other Hematologic History: acute intermitent porphyria Immunologic History: Reports: None Oncologic (Cancer) History: Reports: None Dermatologic History: Reports: Other (See Below) Other Dermatologic History: EDS (Maite-Danlos syndrome) - Infectious Disease History Infectious Disease History: Reports: Chicken Pox - Past Surgical History Head Surgeries/Procedures: Reports: None HEENT Surgical History: Reports: None Cardiovascular Surgical History: Reports: None Respiratory Surgical History: Reports: None GI Surgical History: Reports: Cholecystectomy, Colonoscopy, EGD Female Surgical History: Reports: Tubal Ligation Endocrine Surgical History: Reports: None Neurological Surgical History: Reports: None Musculoskeletal Surgical History: Reports: None Oncologic Surgical History: Reports: None Dermatological Surgical History: Reports: Skin Biopsy, Other (See Below) Social & Family History - Family History Family Medical History: Noncontributory Oncologic: Reports: None - Tobacco Use Smoking Status *Q: Never Smoker - Caffeine Use Caffeine Use: Reports: Coffee - Recreational Drug Use Recreational Drug Type: Reports: Other (see below) Other Recreational Drug Type: cannibis oil ED ROS GENERAL - Review of Systems Review Of Systems: Comprehensive ROS is negative, except as noted in HPI. ED EXAM, GENERAL - Physical Exam Exam: See Below Free Text/Narrative:: General: No acute distress. Comfortable. Heent: Examination revealed no pallor, no icterus, no lymphadenopathy. The patient has normal posterior pharynx, moist mucous membranes. Neck: Supple. No JVD. No rigidity. No bruits. Chest: Directly over the port, there is some typical scarring. Port can be seen tracking over the right clavicle. It feels intact manually however just before it reaches the port proper there is a an indentation that the patient says is new. There is no redness or swelling around the port proper or the catheter itself as it tracks over the clavicle. Heart: Normal rate. Reg rhythm. No murmurs appreciated. Back: There is some tenderness on the rhomboid region on the right side just medial to the scapula. Lungs: Bilaterally clear to auscultation. No focal findings. Abdomen: Nontender, non-distended, soft, no CVA tenderness. Neuro: Pt is moving all four extremities. EOMI. PERRL. Normal speech. Normal brachioradialis and bicep reflex on the right upper extremity. 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 Normal power at the shoulders bilateral upper extremities. Skin: Exposed areas appeared normally perfused, warm, normal color with no meaningful rashes or lesions. Extremities: Peripheral examination revealed no pedal edema. Peripheral pulses were 2+. Course - Vital Signs Text/Narrative:: Normal external exam with exception of the indentation in the catheter itself just as it enters the port head proper. Otherwise normal neurological examination, no neck pain, no bruits. Presentation not consistent with dissection or subarachnoid hemorrhage. Negative imaging per radiology. There seem to be no acute disease in this patient with normal neurological examination and normal chest x-ray. Accordingly we will have the patient follow-up with general surgery here for further assessment of the port. I suspect that perhaps part of the catheter itself may have moved causing her the discomfort but general surgery can further assess the catheter. Return precautions. Last Recorded V/S: Last Vital Signs Temp 98.7 F 07/15/19 01:51 Pulse 98 07/15/19 01:51 Resp 14 07/15/19 01:51 BP 117/58 L 07/15/19 01:51 Pulse Ox 96 07/15/19 01:51 Departure - Departure Time of Disposition: 02:49 Disposition: DC/Tfer to Medicaid [facility] 64 Condition: Good Clinical Impression: Chest pain Qualifiers: Chest pain type: unspecified Qualified Code(s): R07.9 - Chest pain, unspecified - Discharge Information Referrals: PCP,None [Primary Care Provider] - Forms: ED Department Discharge Additional Instructions: Follow-up with general surgery first available appointment. A practice is outlined below. [facility] - General Surgery Professional Building [address] [place] [address], [address] [place] [address] The following information is given to patients seen in the emergency department who are being discharged to home. This information is to outline your options for follow-up care. We provide all patients seen in our emergency department with a follow-up referral. The need for follow-up, as well as the timing and circumstances, are variable depending upon the specifics of your emergency department visit. If you don't have a primary care physician on staff, we will provide you with a referral. We always advise you to contact your personal physician following an emergency department visit to inform them of the circumstance of the visit and for follow-up with them and/or the need for any referrals to a consulting specialist. The emergency department will also refer you to a specialist when appropriate. This referral assures that you have the opportunity for follow-up care with a specialist. All of these measure are taken in an effort to provide you with optimal care, which includes your follow-up. Under all circumstances we always encourage you to contact your private physician who remains a resource for coordinating your care. When calling for follow-up care, please make the office aware that this follow-up is from your recent emergency room visit. If for any reason you are refused follow-up, please contact the [facility] Emergency Department at and asked to speak to the emergency department charge nurse. Sepsis Event Note - Evaluation Sepsis Screening Result: No Definite Risk - Focused Exam Vital Signs: Vital Signs Temp Pulse Resp BP Pulse Ox 07/15/19 01:51 98.7 F 98 14 117/58 L 96 Date Exam was Performed: 07/15/19 Time Exam was Performed: 02:48
--- NOTE | 2019-07-15 02:42 | CR ---
Indication: Assess port continuity Technique: Chest 2 views Comparison: 07/25/2017 Findings/Impression: Cardiovascular and mediastinum: Heart size and vasculature are normal in caliber and appearance. Mediastinum is within normal limits. Lungs and pleural spaces: No consolidation or pleural effusions. No pneumothorax seen. Bones and soft tissues: A right chest Port-A-Cath again seen with the tip in the SVC. Stable appearance of the port and catheter without evidence of acute change. Cholecystectomy clips. Stable osseous structures. Dictated by Eliceo Blanco MD @ 07/15/2019 2:41:11 AM Dictated by: Eliceo Blanco MD @ 07/15/2019 02:41:15 (Electronically Signed)
[2019-07-15 03:31] VITALS: BP 104/64; PULSE 90
== END 2019-07-15 03:37 | disposition home or self-care (01) ==
LOC: MW.ED 01:44
DX: R07.9 Chest pain, unspecified (principal); G62.9 Polyneuropathy, unspecified; Z88.1 Allergy status to other antibiotic agents; Z88.6 Allergy status to analgesic agent; Z91.040 Latex allergy status; Z88.8 Allergy status to other drugs, medicaments and biological substances; Z88.0 Allergy status to penicillin; Z88.2 Allergy status to sulfonamides
CPT/HCPCS: 71046; 71046-26; 99283; 99285-25